=== PATIENT | male | born 1965 | race Caucasian/White ===

== ENCOUNTER 2016-08-20 10:35 | Emergency (ER) | payer OTHER ==
[2016-08-20 10:49] VITALS: BP 133/65
--- NOTE | 2016-08-20 12:33 | UC ---
Gualberto Mcclendon Aidan, scribed for Lia Sneed DO on 08/20/16 at 1139 . General HPI - HPI Summary HPI Summary: 50 y/o male presents to the Urgent Care with a complaint of acute, constant, ofgl-zo-emxhoidt (2/10 reported) tenderness, swelling, and redness in his left leg that began suddenly around noon yesterday. The pain was slightly alleviated by Ibuprofen. Just after onset, the patient began having cold chills. He later developed a fever of 102. Other associated symptoms include muscle aches and VILLA. The patient denies any coughing, sinus congestion, sore throat, ear ache, SOB, abdominal pain, joint pain, dysuria, or changes in urination. Previously, he had this exact sequence of symptoms to a more severe degree and was diagnosed with cellulitis. - History of Current Complaint Chief Complaint: UCGeneralIllness Stated Complaint: CHILLS, FEVER, AND FATIGUE Time Seen by Provider: 08/20/16 11:10 Hx Obtained From: Patient Onset/Duration: Sudden Onset, Lasting Hours, Still Present Timing: Constant Onset Severity: Moderate Current Severity: Mild Pain Intensity: 2 - left leg pain Pain Location at: left lower leg Pain Radiates to: pain does not radiate Character: painful, swelling, and redness Aggravating: unknown Alleviating: Ibuprofen slightly alleviated pain Associated Signs & Symptoms: Positive: Edema - LLE, Fever - of 102, Other - left lower leg pain, swelling, and redness, muscle aches, VILLA. Negative: Abdominal Pain, Back Pain, Cough, Dizziness, Diarrhea, Dysuria, Headache, Nausea , SOB, Vomiting, Wheezing Similar Episode/Dx as: Pt had the exact series of symtoms and was only diagnosed with cellulitis. - Allergy/Home Medications Allergies/Adverse Reactions: Allergies Allergy/AdvReac Type Severity Reaction Status Date / Time Penicillins Allergy See Comment Verified 08/20/16 10:42 PMH/Surg Hx/FS Hx/Imm Hx - Additional Past Medical History Additional PMH: james on bipap, morbid obesity, chronic venous stasis Endocrine History Of: Denies: Diabetes, Thyroid Disease Cardiovascular History Of: Denies: Cardiac Disorders, Hypertension Respiratory History Of: Denies: COPD, Asthma GI/ History Of: Denies: Ulcer - Surgical History Surgical History: Yes Surgery Procedure, Year, and Place: 1984 - Right shoulder surgery - torn bone cap - Family History Known Family History: Negative: Cardiac Disease, Hypertension, Diabetes - Social History Occupation: Employed Full-time Lives: With Family Alcohol Use: Rare Substance Use Type: None Smoking Status (MU): Never Smoked Tobacco Review of Systems Constitutional: Fever - of 102 Skin: Other - LLE erythema Eyes: Negative ENT: Negative Respiratory: Negative Cardiovascular: Negative Gastrointestinal: Negative Genitourinary: Negative Motor: Negative Neurovascular: Negative Musculoskeletal: Calf Tenderness, Edema - LLE edema, Myalgia - LLE pain, muscle aches Neurological: Headache Psychological: Negative All Other Systems Reviewed And Are Negative: Yes Physical Exam Triage Information Reviewed: Yes Appearance: Well-Appearing, No Pain Distress, Obese Vital Signs: Initial Vital Signs Temp 97.1 F 08/20/16 10:43 Pulse 109 08/20/16 10:43 Resp 18 08/20/16 10:43 BP 133/65 08/20/16 10:43 Pulse Ox 96 08/20/16 10:43 Vital Signs Reviewed: Yes Eyes: Positive: Conjunctiva Clear. Negative: Discharge ENT: Positive: Hearing grossly normal Neck exam: Normal Neck: Positive: Supple Respiratory: Positive: Lungs clear, Normal breath sounds, No respiratory distress, No accessory muscle use Cardiovascular: Positive: RRR, No Murmur Musculoskeletal Exam: Normal Musculoskeletal: Positive: Edema @ - left lower extremity, pos calf tenderness, neg valderrama's sign, Other: Neurological: Positive: Alert, Muscle Tone Normal Psychological Exam: Normal Psychological: Positive: Age Appropriate Behavior Skin Exam: Normal, Other - Diffuse redness of left lower extremity below the tibia tuberosity, asymmetrical tenderness and swelling of the left lower extremity, positive calf tenderness. Brauny edema/evidence of chronic venous stasis Course/Dx - Differential Dx - Multi-Symptom Differential Diagnoses: Other - cellulitis, chronic venous stasis, dvt Provider Diagnoses: lower extremity edema- r/o dvt, cellulitis Discharge - Discharge Plan Condition: Stable Disposition: [facility] Referrals: Will Summers MD [Primary Care Provider] - The documentation as recorded by the Gualberto saha Aidan accurately reflects the service I personally performed and the decisions made by , Lia Sneed DO.
== END 2016-08-20 12:11 | disposition short-term general hospital (02) ==
LOC: UCEAST 10:35
DX: R60.0 Localized edema (principal); E66.01 Morbid (severe) obesity due to excess calories; Z88.0 Allergy status to penicillin
CPT/HCPCS: 99212; G0463

== ENCOUNTER 2016-08-20 12:27 | Inpatient (IN) | payer OTHER ==
[2016-08-20] MEDS ORDERED: NS 0.9% 1000 ML* 1,000 ML IV ONE (14:41)
[2016-08-20] MEDS ORDERED: cefTRIAXone VIAL(*) 1,000 MG in NS 0.9% 50 ML* 50 ML IVPB ONE (14:42)
--- NOTE | 2016-08-20 14:50 | RAD ---
Indication: Left leg pain. Duplex Doppler sonography of the deep venous system of the left lower extremity deep venous system was performed. Bilaterally the common femoral veins appear patent and compressible. Left proximal greater saphenous vein, proximal deep femoral vein, femoral vein, popliteal vein, appear patent and compressible. Posterior tibial veins and peroneal veins are not visualized due to swelling. IMPRESSION: NO EVIDENCE OF DEEP VENOUS THROMBOSIS IS IDENTIFIED. LIMITED EVALUATION OF THE PERONEAL VEINS AND POSTERIOR TIBIAL VEINS DUE TO BODY HABITUS AND SWELLING.
--- NOTE | 2016-08-20 15:06 | ED ---
Lily Mcclendon Claudia, scribed for Wendi Darby MD on 08/20/16 at 1417 . Lower Extremity - HPI Summary HPI Summary: 50 year old male presents to the ED with left lower leg pain with erythema and edema. Pt notes sudden onset of Sx since yesterday. He denies any aggravating or alleviating factors. pt states simialr Sx to when he had a DVT in the same leg 4 years ago. Pt admits to chills and fever accompanying the pain. Pt denies any current fever or chills. - History of Current Complaint Chief Complaint: EDExtremityLower Stated Complaint: POSS BLOOD CLOT IN LT LEG Time Seen by Provider: 08/20/16 13:44 Hx Obtained From: Patient Onset of Pain: Days - sudden onset yesterday Pain Intensity: 3 Pain Scale Used: 0-10 Numeric Timing: Constant, Lasting Hours Location: Is Discrete @ - left lower leg Associated Signs And Symptoms: Positive: Swelling, Redness - Allergies/Home Medications Allergies/Adverse Reactions: Allergies Allergy/AdvReac Type Severity Reaction Status Date / Time Penicillins Allergy See Comment Verified 08/20/16 10:42 PMH/Surg Hx/FS Hx/Imm Hx Previously Healthy: Yes Endocrine/Hematology History: Denies: Hx Diabetes, Hx Thyroid Disease Cardiovascular History: Denies: Hx Hypertension Respiratory History: Denies: Hx Asthma, Hx Chronic Obstructive Pulmonary Disease (COPD) GI History: Denies: Hx Ulcer - Surgical History Surgery Procedure, Year, and Place: 1984 - Right shoulder surgery - torn bone cap Infectious Disease History: No Infectious Disease History: Denies: Hx Clostridium Difficile, Hx Hepatitis, Hx Human Immunodeficiency Virus (HIV), Hx of Known/Suspected MRSA, Hx Shingles, Hx Tuberculosis, Hx Known/ Suspected VRE, Hx Known/Suspected VRSA, History Other Infectious Disease, Traveled Outside the [place] in Last 30 Days - Family History Known Family History: Positive: Diabetes - Social History Occupation: Employed Full-time Lives: With Family Alcohol Use: Rare Substance Use Type: Reports: None Smoking Status (MU): Never Smoked Tobacco Review of Systems Eyes: Negative ENT: Negative Cardiovascular: Negative Respiratory: Negative Gastrointestinal: Negative Genitourinary: Negative Positive: Other - left lower leg pain with erythema and edema Skin: Negative Neurological: Negative Psychological: Normal All Other Systems Reviewed And Are Negative: Yes Physical Exam Triage Information Reviewed: Yes Vital Signs On Initial Exam: Initial Vitals Temp Pulse Resp BP Pulse Ox 97 F 108 20 131/67 96 08/20/16 12:30 08/20/16 12:30 08/20/16 12:30 08/20/16 12:30 08/20/16 12:30 Vital Signs Reviewed: Yes Appearance: Positive: Well-Appearing, No Pain Distress Skin: Positive: Warm, Skin Color Reflects Adequate Perfusion, Dry Eyes: Positive: EOMI, STEPHANIE ENT: Positive: Pharynx normal, TMs normal Neck: Positive: Supple, Nontender Respiratory/Lung Sounds: Positive: Clear to Auscultation, Breath Sounds Present. Negative: Rales, Rhonchi, Wheezes Cardiovascular: Positive: RRR. Negative: Murmur, Rub Abdomen Description: Positive: Nontender, Soft Bowel Sounds: Positive: Present Musculoskeletal: Positive: Strength/ROM Intact, Other - mild erythema up to his calf, distal pulse intact.. Negative: Edema Right Neurological: Positive: Sensory/Motor Intact, Alert, Oriented to Person Place, Time, CN Intact II-III Psychiatric: Positive: Affect/Mood Appropriate Diagnostics - Vital Signs Vital Signs Temp Pulse Resp BP Pulse Ox 08/20/16 12:30 97 F 108 20 131/67 96 - Laboratory Lab Statement: Any lab studies that have been ordered have been reviewed, and results considered in the medical decision making process. - Ultrasound No standard instances Ultrasound Interpretation: No Acute Changes - VENOUS DOPPLER STUDY: NO EVIDENCE OF DEEP VENOUS THROMBOSIS IS IDENTIFIED. LIMITED EVALUATION OF THE PERONEAL VEINS AND POSTERIOR TIBIAL VEINS DUE TO BODY HABITUS AND SWELLING. Ultrasound Interpretation Completed By: Radiologist Lower Extremity Course/Dx - Course Course Of Treatment: pt sent for doppler study with story consistent with previous cellulitis. giving ceftriaxone and kefelex close follow up - Diagnoses Provider Diagnoses: Cellulitis Discharge - Discharge Plan Condition: Stable Disposition: HOME Prescriptions: Cephalexin CAP* [Keflex CAP*] 500 mg PO QID #28 cap The documentation as recorded by the Lily saha Claudia accurately reflects the service I personally performed and the decisions made by me, Wendi Darby MD.
[2016-08-20] MEDS ORDERED: Ibuprofen TAB* 600 MG PO ONE (15:56)
[2016-08-20] MEDS ORDERED: NS 0.9% 1000 ML* 2,000 ML IV ONE (15:56)
[2016-08-20 16:27] LABS: Hematocrit 41 % (42-52); Hemoglobin 13.5 g/dl (14.0-18.0); Mean Corpuscular HGB Conc 33 g/dl (31-36); Mean Corpuscular Hemoglobin 27 pg (27-31); Mean Corpuscular Volume 83 fL (80-94); Mean Platelet Volume 8 um3 (7.4-10.4); Red Blood Count 4.95 10^6/ul (4.0-5.4); Red Cell Distribution Width 15 % (10.5-15); White Blood Count 17.9 10^3/ul (3.5-10.8)
[2016-08-20 16:42] LABS: Albumin 3.9 g/dL (3.2-5.2); BUN/Creatinine Ratio 16.9 (8-20); C Reactive Protein 188.5 mg/L (< 5.00); Calcium 9.4 mg/dL (8.6-10.3); EGFR African American 84.7 (>60); EGFR Non-African American 65.9 (>60); Globulin 3.6 g/dL (2-4); Potassium 3.4 mmol/L (3.5-5.0); Total Bilirubin 1.3 mg/dL (0.2-1.0); Total Protein 7.5 g/dL (6.4-8.9)
[2016-08-20] MEDS ORDERED: ceFAZolin 1 GM in Dextrose (*) 1 GM/50 ML BAG IVPB ONE (17:12)
[2016-08-20] MEDS ORDERED: Potassium Chlor TAB* 20 MEQ TAB.ER PO ONE (18:30)
[2016-08-20] MEDS: Heparin VIAL(*) 5000 UNITS/ML VIAL (FIVE THOUSAND) SUBCUT SCH (20:28)
[2016-08-20] MEDS: NS 0.9% 1000 ML* 1,000 ML IV SCH (20:28)
[2016-08-20] MEDS: Ibuprofen TAB* 600 MG PO PRN (21:08)
--- NOTE | 2016-08-20 21:48 | HP ---
HISTORY AND PHYSICAL:* ADDENDUM: Mr. Allen is a 50-year-old morbidly obese male with history of bilateral leg edema who presents with leg cellulitis. The patient met sepsis criteria at admission and his fever was up to 104 degrees prior to admission. The patient is going to be admitted to the hospital, treated with intravenously. For further details of patient's presentation and plan, please see history and physical dictated by Roberta Beyer on 08/20/16 with which I agree. [id number]/CPS #: [id number] MTDD
--- NOTE | 2016-08-20 22:54 | ED ---
Malik Mcclendon Soohyun, scribed for Oswaldo King MD on 08/20/16 at 1718 . Progress - Progress Note Progress Note: This 50 y/o male has been signed out to Dr. King at shift change. Pt is diagnosed with leg cellulitis and possible early stage of sepsis. Pt will be admitted due to pt not having any viable follow up. Plan of care and physical exam findings are shared with Dr. Gaston, who accepts the pt's admission. Re-Evaluation - Re-Evaluation First Eval Re-Evaluation Time: 15:57 Change: Unchanged Comment: MD in room to re-evaluate the pt. Course/Dx - Diagnoses Provider Diagnoses: Cellulitis, leg - Provider Notifications Discussed Care Of Patient With: Dr. Gaston (Hospitalist) at 1714 PM. Time Discussed With Above Provider: 17:14 Instructed by Provider To: Admit As Inpatient The documentation as recorded by the gmibMalik hernandez Soohyun accurately reflects the service I personally performed and the decisions made by , Oswaldo King MD.
--- NOTE | 2016-08-20 22:55 | HP ---
ATTENDING ADDENDUM NOW INCLUDED ON THIS REPORT HISTORY AND PHYSICAL: DATE OF ADMISSION: 08/20/16 PRIMARY CARE PROVIDER: Will Summers MD ATTENDING PHYSICIAN: Dolly Salas MD * (report dictated by Marisol Kim NP) CHIEF COMPLAINT: Left leg pain, swelling, and redness. HISTORY OF PRESENT ILLNESS: Mr. Allen is a 50-year-old male with past medical history significant for morbid obesity, liver disease, and sleep apnea who presents to the emergency room with complaints of sudden onset of left leg pain with swelling and redness with sudden onset 1 day ago. The patient states that this is similar to when he had a previous cellulitis approximately 4 years ago. The patient reports fever, chills. He denies chest pain, shortness of breath, nausea, vomiting. The patient decided to present to the emergency room for further evaluation of his symptoms. While in the emergency room, the patient received 3 L of saline, was given cefazolin and ceftriaxone. The patient had a venous Doppler study that was negative for deep vein thrombosis. The patient had labs that were significant for a lactic acid of 2.3, white blood cell count of 17.9. The patient has a history of liver disease and has elevated bilirubin of 130. The patient had a temperature of 104 in the emergency room. Based off of concern of the patient' s presentation, the Hospitalists were asked to evaluate him for admission. PAST MEDICAL HISTORY: 1. Morbid obesity. 2. Liver disease. 3. Obstructive sleep apnea, uses BiPAP. 4. Lymphadenopathy. 5. Lymphedema. PAST SURGICAL HISTORY: Status post shoulder surgery. HOME MEDICATIONS: The patient denies any home medications. ALLERGIES: PENICILLIN. FAMILY HISTORY: The patient denies any family history of coronary artery disease. The patient reports a paternal grandfather with history of diabetes mellitus. The patient reports his mother had cancerous tumor attached to her liver that was not liver cancer. SOCIAL HISTORY: The patient denies tobacco or recreational drug use. He rarely drinks alcohol. 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 He is and his , Kaylee Allen, will be his surrogate decision maker in the event he is unable to make decisions for himself. REVIEW OF SYSTEMS: I performed a 14-point review of systems. All the pertinent positives and negatives are mentioned in the history of present illness. The remaining review of systems is negative. PHYSICAL EXAMINATION GENERAL APPEARANCE: The patient is alert, pleasant, appears to be in no acute distress. VITAL SIGNS: Temperature 101.4, heart rate 99, respiratory rate 22, O2 sat 97% on room air, blood pressure 144/78. HEENT: Normocephalic, atraumatic. Pupils are equal and reactive to light. Extraocular movements are intact. NECK: Supple. There is no lymphadenopathy noted. RESPIRATORY: There is no accessory muscle use and the lungs are clear, diminished to auscultation, bilateral. CARDIOVASCULAR: Regular rate and rhythm. S1 and S2 present. There are no murmurs, rubs, or gallops heard. ABDOMEN: Soft, large, and nontender. There are bowel sounds present x4. EXTREMITIES: There is trace to +1 bilateral lower extremity edema. DP and PT pulses are 2+ and symmetric. MUSCULOSKELETAL: There is no clubbing or cyanosis noted. The patient exhibits good strength in all extremities. NEUROLOGICAL: The patient is alert and oriented x3. Cranial nerves II through XII are grossly intact. PSYCHOLOGICAL: The patient is calm and cooperative. SKIN: The patient has erythema and warmth to his right lower extremity from his ankle to just below his knee. DIAGNOSTIC STUDIES/LABORATORY DATA: Sodium 135, potassium 3.4, chloride 103, CO2 26, BUN 20, creatinine 1.18, glucose 102. White blood cell count 17.9, hemoglobin 13.5, hematocrit 41, and platelet count 166. Lactic acid 2.3, C- reactive protein 188.50, total bilirubin 1.30. Left venous Doppler ultrasound from today. Radiologist's impression: No evidence of deep vein thrombosis was identified. Limited evaluation of the peroneal veins and posterior tibial veins due to body habitus and swelling. IMPRESSION: Mr. Allen is a 50-year-old male with past medical history significant for morbid obesity, liver disease, lymphedema, and obstructive sleep apnea who presents to the emergency room with concern for left lower extremity pain with erythema and edema. He will be admitted as inpatient for cellulitis and sepsis. ASSESSMENT: 1. Cellulitis with sepsis. The patient has cellulitis of his left lower extremity. Venous ultrasound showed no deep venous thrombosis. On admission, the patient is meeting sepsis criteria with systemic inflammatory response syndrome criteria with a temperature, tachycardia, tachypnea, and leukocytosis. The patient's qSOFA score is 1 at the time of admission. The patient will receive IV fluids. We will repeat a lactic acid and blood cultures have been obtained. The patient will be continued on cefazolin. 2. Obstructive sleep apnea. The patient will use his home BiPAP. His settings are IPAP 16 and EPAP 12. 3. Liver disease. We will avoid acetaminophen use. The patient can have Motrin for fever and pain. The patient's bilirubin looks slightly more elevated than his baseline labs in the computer. 4. Fluids, electrolytes, and nutrition. Regular diet. 5. Code status. Full code. 6. DVT prophylaxis. The patient is at moderate risk and will have subcu heparin. 7. Disposition. Inpatient. TIME SPENT: Time for this admission was 60 minutes, 35 minutes were spent with [id number] with the patient discussing medications, past medical history, and events leading to his arrival today and performing physical examination. The case has been reviewed with the attending, Dr. Salas, who agrees with the plan of care. Reviewed by MARISOL KIM, ASSURANCE AUDITOR-C 08/23/16 1933 ADDENDUM: Patient met sepsis criteria at admission and his fever was up to 104 degrees prior to admission. The patient is going to be admitted to the hospital, treated with intravenously. For further details of patient's presentation and plan, please see history and physical dictated by Marisol Beyer on 08/20/16 with which I [place] [id number]/CPS #: [id number]/CPS #: [id number] PAM
[2016-08-21] MEDS: ceFAZolin 1 GM in Dextrose (*) 1 GM/50 ML BAG IVPB SCH ×3 (02:03→18:08)
[2016-08-21] MEDS: NS 0.9% 1000 ML* 1,000 ML IV SCH ×2 (05:03→13:33)
[2016-08-21] MEDS: Heparin VIAL(*) 5000 UNITS/ML VIAL (FIVE THOUSAND) SUBCUT SCH ×3 (05:43→23:08)
[2016-08-21 06:12] LABS: BUN/Creatinine Ratio 17.2 (8-20); Calcium 8.6 mg/dL (8.6-10.3); EGFR African American 111.5 (>60); EGFR Non-African American 86.7 (>60); Potassium 3.6 mmol/L (3.5-5.0)
[2016-08-21 06:20] LABS: Hematocrit 37 % (42-52); Mean Corpuscular HGB Conc 33 g/dl (31-36); Mean Corpuscular Hemoglobin 27 pg (27-31); Mean Corpuscular Volume 83 fL (80-94); Mean Platelet Volume 8 um3 (7.4-10.4); Red Blood Count 4.39 10^6/ul (4.0-5.4); Red Cell Distribution Width 15 % (10.5-15); White Blood Count 11.3 10^3/ul (3.5-10.8)
[2016-08-21] MEDS ORDERED: Influenza VAC *QUAD* 2016-17* 0.5 ML SYRINGE IM ONE (09:00)
--- NOTE | 2016-08-21 15:34 | PN ---
Subjective Date of Service: 08/21/16 Interval History: patient reports he feels better since admission but not a 100% he continues to report significant LE erythema and some noted edema. Denies fever or chills. Reports no appetite. No N/V/D. Denies LE pain. Objective Active Medications: Heparin Sodium (Porcine) (Heparin Vial(*)) 5,000 units SUBCUT Q8HR [facility] Last Admin: 08/21/16 14:46 Dose: 5,000 units Cefazolin Sodium/Dextrose (Kefzol 1 Gm In Dextrose Duplex (*)) 1 gm in 50 mls @ 200 mls/hr IVPB Q8H [facility] Last Admin: 08/21/16 10:56 Dose: 200 mls/hr Sodium Chloride (Ns 0.9% 1000 Ml*) 1,000 mls @ 125 mls/hr IV PER RATE [facility] Last Admin: 08/21/16 13:33 Dose: 125 mls/hr Ibuprofen (Motrin Tab*) 600 mg PO Q6H PRN PRN Reason: FEVER/PAIN Last Admin: 08/20/16 21:08 Dose: 600 mg Vital Signs 08/20/16 08/20/16 08/20/16 19:58 22:48 23:47 Temperature 99.4 F 98.4 F Pulse Rate 113 94 Respiratory 18 16 20 Rate Blood Pressure 141/69 132/61 (mmHg) O2 Sat by Pulse 98 97 Oximetry 08/21/16 08/21/16 08/21/16 04:00 07:48 08:00 Temperature 98.8 F 97.9 F Pulse Rate 90 106 Respiratory 18 18 Rate Blood Pressure 138/60 120/54 (mmHg) O2 Sat by Pulse 100 98 Oximetry 08/21/16 11:07 Temperature 100.7 F Pulse Rate 115 Respiratory 18 Rate Blood Pressure 144/69 (mmHg) O2 Sat by Pulse 99 Oximetry Oxygen Devices in Use Now: None Appearance: morbidly obese male laying in bed resting A+O x3 in NAD Eyes: No Scleral Icterus, PERRLA Ears/Nose/Mouth/Throat: NL Teeth, Lips, Gums, Mucous Membranes Moist Neck: NL Appearance and Movements; NL JVP Respiratory: Symmetrical Chest Expansion and Respiratory Effort, Clear to Auscultation Cardiovascular: NL Sounds; No Murmurs; No JVD, RRR Abdominal: NL Sounds; No Tenderness; No Distention, - - obese Extremities: No Clubbing, Cyanosis Skin: - - LLE below knee to abvove ankle is noted generalized erythema and edema. No tenderness. Warm to touch. No open wounds. Neurological: Alert and Oriented x 3, NL Sensation, NL Muscle Strength and Tone Lines/Tubes/Other Access: Clean, Dry and Intact Peripheral IV Nutrition: Taking PO's - PO intake Result Diagrams: 08/21/16 05:36 08/21/16 05:36 Assess/Plan/Problems-Billing Assessment: Mr. Allen is a 50 yo male with a PMH of Morbid Obesity, liver disease, sleep apnea who presented to the emergency department 08/20 with c/o left leg swelling and redness found to have cellulitis - Patient Problems (1) Sepsis Comment: resolved (2) Cellulitis Comment: - left lower extremity - Doppler showing no DVT - continue IV abx with cefazolin, may be able to switch to PO tomorrow. (3) BMI 45.0-49.9, adult (4) Sleep apnea Comment: - continue cpap (5) DVT prophylaxis Comment: HSQ Status and Disposition: Inpatient with sepsis secondary to Cellulitis requiring IV antibiotics. Home when medically stable.
[2016-08-21] MEDS: Ibuprofen TAB* 600 MG PO PRN (23:08)
[2016-08-22] MEDS: ceFAZolin 1 GM in Dextrose (*) 1 GM/50 ML BAG IVPB SCH ×2 (01:48→10:05)
[2016-08-22] MEDS: Heparin VIAL(*) 5000 UNITS/ML VIAL (FIVE THOUSAND) SUBCUT SCH ×2 (05:58→14:40)
[2016-08-22 06:55] LABS: Hematocrit 34 % (42-52); Hemoglobin 11.4 g/dl (14.0-18.0); Mean Corpuscular HGB Conc 33 g/dl (31-36); Mean Corpuscular Hemoglobin 27 pg (27-31); Mean Corpuscular Volume 82 fL (80-94); Mean Platelet Volume 8 um3 (7.4-10.4); Red Blood Count 4.17 10^6/ul (4.0-5.4); Red Cell Distribution Width 14 % (10.5-15)
[2016-08-22 07:07] LABS: BUN/Creatinine Ratio 12.6 (8-20); Calcium 8.5 mg/dL (8.6-10.3); EGFR African American 108.8 (>60); EGFR Non-African American 84.6 (>60); Potassium 3.5 mmol/L (3.5-5.0)
[2016-08-22 10:41] VITALS: BP 119/66
--- NOTE | 2016-08-23 14:55 | DS ---
DISCHARGE SUMMARY: DATE OF ADMISSION: 08/20/16 DATE OF DISCHARGE: 08/22/16 PRIMARY CARE PROVIDER: Dr. Will Summers. DISCHARGE DIAGNOSES: 1. Severe sepsis. 2. Left lower extremity cellulitis. 3. Acute kidney injury. 4. Mild lactic acidosis. 5. Leukocytosis. 6. Mild thrombocytopenia secondary to sepsis. SECONDARY DIAGNOSES: 1. Morbid obesity with a BMI of 49. 2. 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 3. Obstructive sleep apnea, on BiPAP. 4. Chronic lymphedema. 5. Status post shoulder surgery. MEDICATION LIST: 1. Ibuprofen 600 mg p.o. q.8 hours p.r.n. pain or fever. 2. Cephalexin 500 mg p.o. four times a day for 10 more days. HOSPITAL COURSE: Mr. Allen is a 50-year-old male with a past medical history as stated above that presented to the emergency room with complaints of left leg pain, swelling, and redness that had started suddenly one day prior to admission. He did have a prior episode of cellulitis 4 years ago, so he was familiar with symptoms and presented to the emergency room. For more details about his presentation, I refer you to his history and physical. Lower extremity Doppler was performed and it showed no evidence of deep venous thrombosis. Limited evaluation of the peroneal and posterior tibial veins due to body habitus and swelling. His CBC showed WBC of 17.9 with a creatinine of 1.18 and lactic acid of 2.3. He was admitted under impression of severe sepsis secondary to lower extremity cellulitis and he was started on IV hydration and cefazolin. The patient has significant improvement of the erythema of his lower extremity. He had improvement of his fever and he was feeling much improved today and anxious for discharge. He felt that he would be able to rest properly at home and he has been able to tolerate oral meds with no problem. The patient had resolution of his renal failure with resolution of his leukocytosis and has had stable vital signs. He was thought to be stable for discharge. The patient was advised to follow up with Dr. Will Summers as he has not seen his PCP for a couple of years and has an appointment scheduled for August 25 at 3:30 p.m. I believe the patient would also benefit of evaluation by Dr. Pan as outpatient for possible chronic antibiotic suppression, as I foresee worsening of his lymphedema and probably recurrent infections. He would also probably benefit of referral to [facility] to assist with weight loss. PHYSICAL EXAMINATION: Vital Signs: Temperature 97.8, heart rate is 76, respiratory rate is 16, oxygen saturation is 100% on room air, blood pressure is 119/66. General: The patient is a pleasant, morbidly obese male, sitting up in bed, in no acute distress. HEENT: Pupils are equal. Moist mucous membranes. CVS: Normal S1, S2. Regular rate and rhythm. Chest: Breath sounds present bilaterally with no added sounds, decreased in bases. Abdomen is obese, soft. Bowel sounds are present. Extremities: The patient has bilateral lower extremity lymphedema with chronic skin changes on the right, mild erythema on the left that is receding considerably from demarcation lines made in the emergency room. He still has moderate edema, but states that this has improved from admission. DIET: Regular diet. ACTIVITIES: As tolerated. The patient was advised to stay off work until he sees Dr. Summers and to keep his leg elevated. DISPOSITION: To home. STATUS IN THE HOSPITAL: Inpatient. Please keep in mind this is a summarized version of this patient's hospital stay. If you need more information, please feel free to call me at [phone] or please obtain the full medical records. TIME SPENT: Approximately 45 minutes was spent to complete this discharge. CC: Dr. Will Summers* [id number]/CPS #: [id number] PAM
== END 2016-08-22 15:10 | disposition home or self-care (01) | DRG 872 ==
LOC: ED 12:27 → MED 18:10
PROVIDERS: ADMIT Internal Medicine; ATTEND Internal Medicine
DX: A41.9 Sepsis, unspecified organism (principal); N17.9 Acute kidney failure, unspecified; E87.2 Acidosis; D69.59 Other secondary thrombocytopenia; Z68.42 Body mass index [BMI] 45.0-49.9, adult; E66.01 Morbid (severe) obesity due to excess calories; L03.116 Cellulitis of left lower limb; R65.20 Severe sepsis without septic shock; K75.81 Nonalcoholic steatohepatitis (NASH); G47.33 Obstructive sleep apnea (adult) (pediatric); I89.0 Lymphedema, not elsewhere classified; Z88.0 Allergy status to penicillin; Z82.49 Family history of ischemic heart disease and other diseases of the circulatory system; Z83.3 Family history of diabetes mellitus; Z80.8 Family history of malignant neoplasm of other organs or systems
CPT/HCPCS: 36415; 80048; 80053; 83605; 85025; 86140; 87040; 90686; 99212; A9270-GY; G0463; J0690; J0696; J1644

== ENCOUNTER 2017-07-17 10:12 | Emergency (ER) | payer OTHER ==
--- OUTSIDE RECORDS SUMMARY | 2017-07-17 11:24 | XMS REPORT ---
:1965 External Reference #:[id number] Author Organization [employer] Address [address] [address] Phone [phone] Care Team Providers Name Role Phone Will Summers MD Care Team Information Senior Advisory Unavailable Will Summers MD Primary Care Physician Unavailable Payers Type Date Identification Numbers Payment Provider Subscriber Commercial Effective: Policy Number: [employer]CP[employer] Kaylee Lindquist 2011 [id number] Group Number: [id number] [address] PayID: [id number] [place] [address] Medigap Part B Expires: 2011 Policy Number: [employer] Insurance Kaylee Lindquist [id number] Group Number: [id number] [address] PayID: [id number] [place] [address] Problems Date Description Provider Status Onset: 08/25/2016 Nonalcoholic steatohepatitis Rudolph Marshall M.D.,FACP Onset: 11/14/2007 Morbid obesity Rudolph Marshall M.D.,FACP Onset: 11/14/2007 Allergic rhinitis Rudolph Marshall M.D.,FACP Onset: 11/14/2007 Benign essential hypertension Rudolph Marshall M.D.,FACP Onset: 03/17/2008 Chronic nonalcoholic liver Will Summers Active disease Dave,FACP Onset: 04/10/2012 Obstructive sleep apnea syndrome Dorian Nickerson M.D. Active Onset: 04/10/2012 Disorder of nasal cavity Dorian Nickerson M.D. Active Onset: 12/07/2014 Swelling of limb Fnu MD Cedric Active Onset: 10/01/2014 Sprain of knee and leg Alysonu MD Cedric Inactive Inactive: 08/25/2016 Onset: 10/01/2014 Obesity Oscar Steele MD Inactive Inactive: 08/25/2016 Onset: 11/14/2007 Inflammatory disease of liver Will Summers M.D.,FACP Inactive Inactive: 08/25/2016 Onset: 11/15/2010 Chronic liver disease Will Summers M.D.,FACP Inactive Inactive: 08/25/2016 Onset: 10/17/2012 Epidermoid cyst Dorian Nickerson M.D. Inactive Inactive: 08/25/2016 Family History Date Family Member(s) Problem(s) Comments General Diabetes General Cancer Father 68 as of 11/15/2010 Father No Current Problems Mother Cancer abdominal, not colon/stomach Siblings 1 First Sister Deviated Septum Maternal Grandmother Diabetes, Non Insulin Dependent Social History Type Date Description Comments Marital Status Lives With Spouse Occupation Currently Working at [employer] Cigarette Use Never Smoked Cigarettes Cigars 08/25/2016 Never Smoked Cigars Pipe Never Smoked A Pipe Smokeless Tobacco Never Used Smokeless Tobacco ETOH Use Drinks Alcoholic Beverages Rarely Recreational Drug Use Denies Drug Use Smoking Patient has never smoked Exercise Type/Frequency Does not exercise General Hx Text 2 children Allergies, Adverse Reactions, Alerts Date Description Reaction Status Severity Comments 11/13/2007 Penicillin active per parents Medications Medication Date Status Form Strength Qnty SIG Indications Ordering Provider Ibuprofen 08/22/ Active Tablets 600mg 30tab 1 by mouth Q Other 2017 s 8 hrs as Ordering needed Provider Compression 12/07/ Active Use Fnu Stockings 2014 bilaterally Seemant, 15-20 Size as needed. Bi-Pap 06/20/ Active 1unit ipap 16/ Dorian 2012 s epap 12 Glendy with ab hughes M.D. supplies Clindamycin 08/29/ Hx Capsules 300mg 30cap 1 tabs by L03.116 Fernando HCL 2017 - s mouth 3 D. 06/25/ times a day; Flash 2017 take for M.D. return of chills, fevers, leg swelling, redness Cephalexin 08/22/ Hx Capsules 500mg 40cap 1 by mouth 4 Other 2017 - s times a day Ordering 02/10/ x 10 days Provider 2017 Cephalexin 09/20/ Hx Capsules 500mg 28cap qid po 682.7 Will 2011 - s Yancy Summers, 11/15/ MHarleyDHarley,FACP 2010 Ibuprofen 09/20/ Hx Tablets 600mg 60tab tid prn 682.7 Will 2010 - s Yancy Summers, MHarleyDHarley,FACP 2014 Nasonex 11/13/ Hx Suspension 50mcg/Act 1Mon 2 spray kary 477.9 Will 2007 - each side qd Yancy Summers, MHarleyDHarley,FACP 2013 Claritin / Hx Tablets 10mg 30tab PO qd prn Unknown 0000 - s 2013 Flonase / Hx Suspension 1Bott 1 Intranasal Unknown 0000 - le puff To Each 03/17/ Nostril 2008 Daily Immunizations CPT Code Status Date Vaccine Lot # [id number] Refused 06/11/2009 Influenza Virus Vaccine, Pandemic Formulation Vital Signs Date Vital Result Comment 06/26/2017 Height 73 inches 6'1" Weight 352.00 lb Heart Rate 91 /min BP Systolic Sitting 140 mmHg BP Diastolic Sitting 100 mmHg Body Temperature 98.1 F O2 % BldC Oximetry 98 % BMI (Body Mass Index) 46.4 kg/m2 08/29/2016 Height 73 inches 6'1" Weight 379.00 lb Heart Rate 84 /min BP Systolic Sitting 154 mmHg BP Diastolic Sitting 80 mmHg Respiratory Rate 14 /min Body Temperature 98.3 F BMI (Body Mass Index) 50.0 kg/m2 08/25/2016 Height 73 inches 6'1" Weight 379.12 lb Heart Rate 106 /min BP Systolic Sitting 143 mmHg BP Diastolic Sitting 87 mmHg BP Systolic Recheck 138 mmHg BP Diastolic Recheck 85 mmHg Body Temperature 101.0 F 8 O2 % BldC Oximetry 95 % BMI (Body Mass Index) 50.0 kg/m2 11/19/2014 Height 73 inches 6'1" Weight 365.00 lb Heart Rate 82 /min BP Systolic Sitting 142 mmHg BP Diastolic Sitting 90 mmHg BMI (Body Mass Index) 48.2 kg/m2 10/01/2014 Weight 370.00 lb Heart Rate 80 /min BP Systolic Sitting 124 mmHg BP Diastolic Sitting 78 mmHg 12/23/2013 Weight 360.00 lb Heart Rate 88 /min BP Systolic Sitting 132 mmHg BP Diastolic Sitting 88 mmHg 11/25/2013 Height 74 inches 6'2" Weight 360.00 lb BP Systolic 140 mmHg BP Diastolic 92 mmHg BMI (Body Mass Index) 46.2 kg/m2 05/15/2013 Weight 370.00 lb pts weight at home 09/26/2012 Weight 378.00 lb pt weighed himself at home this am 04/10/2012 Weight 350.00 lb Heart Rate 90 /min BP Systolic Sitting 130 mmHg BP Diastolic Sitting 92 mmHg 11/15/2010 Heart Rate 80 /min BP Systolic 138 mmHg BP Diastolic 82 mmHg 09/20/2010 Height 74 inches 6'2" Weight 385.00 lb Heart Rate 90 /min BP Systolic Sitting 140 mmHg BP Diastolic Sitting 94 mmHg Body Temperature 97.3 F Tympanically BMI (Body Mass Index) 49.4 kg/m2 03/17/2008 Height 74 inches 6'2" Heart Rate 78 /min BP Systolic Sitting 168 mmHg BP Diastolic Sitting 98 mmHg 11/14/2007 Height 74 inches 6'2" Weight 346.00 lb Heart Rate 78 /min BP Systolic Sitting 150 mmHg BP Diastolic Sitting 92 mmHg BMI (Body Mass Index) 44.4 kg/m2 Results Test Date Test Result H/L Range Note CBC Auto Diff 08/20/2016 White Blood Count 17.9 10^3/uL High 3.5-10.8 Red Blood Count 4.95 10^6/uL 4.0-5.4 Hemoglobin 13.5 g/dL Low 14.0-18.0 Hematocrit 41 % Low 42-52 Mean Corpuscular Volume 83 fL 80-94 Mean Corpuscular Hemoglobin 27 pg 27-31 Mean Corpuscular HGB Conc 33 g/dL 31-36 Red Cell Distribution Width 15 % 10.5-15 Platelet Count 166 10^3/uL 150-450 Mean Platelet Volume 8 um3 7.4-10.4 Abs Neutrophils 16.2 10^3/uL High 1.5-7.7 Abs Lymphocytes 1.2 10^3/uL 1.0-4.8 Abs Monocytes 0.5 10^3/uL 0-0.8 Abs Eosinophils 0 10^3/uL 0-0.6 Abs Basophils 0.1 10^3/uL 0-0.2 Abs Nucleated RBC 0 10^3/uL Granulocyte % 90.5 % High 38-83 Lymphocyte % 6.5 % Low 25-47 Monocyte % 2.7 % 1-9 Eosinophil % 0 % 0-6 Basophil % 0.3 % 0-2 Nucleated Red Blood Cells % 0 Comp Metabolic Panel 08/20/2016 Sodium 135 mmol/L 133-145 Potassium 3.4 mmol/L Low 3.5-5.0 Chloride 103 mmol/L 101-111 Co2 Carbon Dioxide 26 mmol/L 22-32 Anion Gap 6 mmol/L 2-11 Glucose 102 mg/dL High 70-100 Blood Urea Nitrogen 20 mg/dL 6-24 Creatinine 1.18 mg/dL High 0.67-1.17 BUN/Creatinine Ratio 16.9 8-20 Calcium 9.4 mg/dL 8.6-10.3 Total Protein 7.5 g/dL 6.4-8.9 Albumin 3.9 g/dL 3.2-5.2 Globulin 3.6 g/dL 2-4 Albumin/Globulin Ratio 1.1 1-3 Total Bilirubin 1.30 mg/dL High 0.2-1.0 Alkaline Phosphatase 36 U/L 34-104 Alt 38 U/L 7-52 Ast 27 U/L 13-39 Egfr Non- 65.9 >60 Egfr 84.7 >60 1 Laboratory test finding 08/20/2016 C Reactive Protein 188.50 mg/L High &lt ; 5.00 2 Laboratory test finding 08/20/2016 Lactic Acid 2.3 mmol/L High 0.5-2.0 3 Blood Culture SEE RESULT BELOW 4 Laboratory test finding 05/20/2015 Rapid Influenza A B SEE RESULT BELOW 5 Antigen Throat-Beta Strept SEE RESULT BELOW 6 Xray 10/01/2014 Knee Complete LT <pending> Liver Function Panel 11/15/2010 Total Protein 6.8 GM/DL 6.2-8.1 Albumin 3.7 GM/DL 3.6-5.4 Globulin 3.1 GM/DL 2-4 Albumin/Globulin Ratio 1.2 1-3 Bilirubin Total 0.9 mg/dL 0.4-1.5 7 Bilirubin Direct 0.1 mg/dL 0.1-0.5 Indirect Bilirubin 0.8 mg/dL 0.3-1.0 8 Alkaline Phosphatase 43 U/L 39-117 Alt (SGPT) 45 U/L 17-63 Ast (Sgot) 33 U/L 12-42 Laboratory test finding 11/15/2010 TSH 2.56 MIU/ML 0.34-5.60 Lipid Profile (Trig/Chol/HDL) 11/14/2010 Triglyceride 153 mg/dL 40-200 Cholesterol 164 mg/dL Less Than 200 9 High Density Lipoprotein 38 mg/dL Low 40-60 10 Cholesterol/HDL Ratio 4.32 AVERAGE 1-4.97 Low Density Lipoprotein 95 mg/dL Less Than 100 11 Laboratory test finding 11/14/2010 Glucose 97 mg/dL 70-100 CBC With Electronic Diff 09/20/2010 White Blood Count 6.9 CUMM 4.8-10.8 Red Cell Count 4.32 CUMM Low 4.6-6.2 Hemoglobin 12.6 g/dL Low 14.0-18.0 Hematocrit 37 % Low 42-52 Mean Corpuscular Volume 84 um3 80-94 Mean Corpuscular Hemoglob 29 pg 27-31 Mean Corpuscular HGB Cone 35 g/dL 32-36 Redcell Distribution WDTH 14 % 10.5-15 Platelet Count 316 CUMM 150-450 Mean Platelet Volume 7.8 um3 7.4-10.4 Gran % 54.2 % 38-83 Lymph % 35.3 % 25-47 Mononuclear % 6.2 % 1-9 Eosinophil % 3.7 % 0-6 Basophil % 0.6 % 0-2 Abs Lymphs 2.4 1.0-4.8 Abs Mononuclear 0.4 0-0.8 Absolute Neutrophil Count 3.7 1.5-7.7 Abs Eosinophils 0.3 0-0.6 Abs Basophils 0 0-0.2 Laboratory test finding 09/20/2010 C Reactive Protein 2.3 mg/dL High Less Than 0.5 D Dimer Quantitative 472 NG/ML High Less Than 230 12 Urine Culture & 09/12/2010 Urine Culture Sensitivi NG 13 Sensitivi Laboratory test finding 03/02/2008 Ferritin 192 NG/ML 24-336 TSH 1.68 MIU/ML 0.34-5.60 Iron & Iron Binding Capacity 03/02/2008 Iron Total 94 g/dL 45-182 Unsaturated Iron Binding 255 g/dL Total Iron Binding Capacity 349 g/dL 250-450 % Iron Saturation 27 % 15-55 Laboratory test finding 03/02/2008 GGTP 27 U/L 7-50 Liver Function Panel 03/02/2008 Total Protein 7.2 GM/DL 6.2-8.1 Albumin 3.8 GM/DL 3.6-5.4 Globulin 3.4 GM/DL 2-4 Albumin/Globulin Ratio 1.1 1-3 Bilirubin Total 0.8 mg/dL 0.4-1.5 Bilirubin Direct 0.2 mg/dL 0.1-0.5 Indirect Bilirubin 0.6 mg/dL 0.1-0.75 Alkaline Phosphatase 58 U/L 39-117 Alt (SGPT) 77 U/L High 17-63 Ast (Sgot) 50 U/L High 12-42 Basic Metabolic Panel 09/05/2007 One Over Creatinine 1.00 14 Anion Gap 5.0 mmol/L 2-11 14, 15 BUN 14 mg/dL 6-24 14 Calcium 9.2 mg/dL 8.7-10.2 14 Chloride 104 mmol/L 101-111 14 Co2 (Carbon Dioxide) 30.0 mmol/L 22-32 14 Glucose 90 mg/dL 70-105 14 Potassium 4.1 mmol/L 3.5-5.0 14 Sodium 139 mmol/L 135-145 14 BUN/Creatinine Ratio 14.0 8-20 14 Creatinine 1.0 mg/dL 0.5-1.4 14 Lipid Profile 09/05/2007 Cholesterol/HDL Ratio 4.38 AVERAGE 1-4.97 14 (Trig/Chol/HDL) Cholesterol 171 mg/dL Less Than 200 14, 16 Triglyceride 158 mg/dL 40-200 14 High Density Lipoprotein 39 mg/dL Low 40-60 14, 17 Low Density Lipoprotein 100 mg/dL Less Than 100 14, 18 Laboratory test finding 09/05/2007 PSA Screening 1.45 NG/ML 0-4 14, 19 1 Because ethnic data is not always readily available, this report includes an eGFR for both -Americans and non- Americans. The National Kidney Disease Education Program (NKDEP) does not endorse the use of the MDRD equation for patients that are not between the ages of 18 and 70, are , have extremes of body size, muscle mass, or nutritional status, or are non- or non-. According to the National Kidney Foundation, irrespective of diagnosis, the stage of the disease is based on the level of kidney function: Stage Description GFR(mL/min/1.73 m(2)) 1 Kidney damage with normal or decreased GFR 90 2 Kidney damage with mild decrease in GFR 60-89 3 Moderate decrease in GFR 30-59 4 Severe decrease in GFR 15-29 5 Kidney failure <15 (or dialysis) 2 Acute inflammation: >10.00 3 Critical Result LACT:2.3 Called to [id number] at: 16:44:21 by:[id number] Read back by:[id number] [place] Severe Sepsis and Septic Shock Management Bundle Measure requires all lactic acids initially measuring >2.0 mmol/L be repeated. 4 SEE RESULT BELOW Name: RACHID LINDQUIST : [address]: Destini Kat MD Acct: [id number] Unit: [id number] AGE: 50 Location: [facility] 411-02 Re08/20/16 Dis: 08/22/16 SEX: M Status: DIS IN SPEC: [id number] TARIQ: 08/20/16-[address] [facility] [address]: Oswaldo King MD REQ: [id number] RECD: 08/20/16 STATUS: FELIX GOODSON DR: Will Summers MD _ SOURCE: BLOOD,VENO SPDESC: ORDERED: Blood Cult Procedure Result Reported Site Aerobic Culture Bottle Final 08/25/16- 1622 ML No Growth Day 5 Anaerobic Culture Bottle Final 08/25/16- 1622 ML No Growth Day 5 * ML - MAIN LAB ([facility]) . END OF REPORT * ML=Testing performed at Main Lab DEPARTMENT OF PATHOLOGY, [address] [place] [address] Malik Bingham M.D. Director [facility] # [id number] 5 SEE RESULT BELOW Name: RACHID LINDQUIST : [address]: Reba Jacobs MD Acct: [id number] Unit: [id number] AGE: 49 Location: [facility] Re05/20/15 SEX: M Status: DEP ER SPEC: [id number] TARIQ: 05/20/[address]: Reba Jacobs MD REQ: [id number] RECD: 05/20/15 STATUS: FELIX GOODSON DR: Will Summers MD _ SOURCE: [facility]OH[facility]I [facility]: ORDERED: Rapid Flu A B Procedure Result Verified Site Rapid Influenza A B Antigen Final 05/20/152052 ML Organism 1 Negative Influenza A B Antigen testing by enzyme immunoassay. Cell culture testing can be performed to confirm negative test results and to assist in detecting other viruses that can produce similar clinical symptoms. Please notify Microbiology Lab if further testing is desired. * ML - MAIN LAB ([facility]) . END OF REPORT * ML=Testing performed at Main Lab DEPARTMENT OF PATHOLOGY, [address] [place] [address] Malik Bingham M.D. Director [facility] # [id number] 6 SEE RESULT BELOW Name: AMEENARACHID Dwain : [address]: Reba Jacobs MD Acct: [id number] Unit: [id number] AGE: 49 Location: [facility] Re05/20/15 SEX: M Status: DEP ER SPEC: [id number] TARIQ: 05/20/[address] [facility] [address]: Reba Jacobs MD REQ: [id number] RECD: 05/20/15 STATUS: FELIX GOODSON DR: Will Summers MD _ SOURCE: THROAT SPDESC: ORDERED: Throat Beta Str Procedure Result Verified Site Throat Beta Strep Culture Final 05/22/15- 0914 ML Negative For Group A Beta Streptococcus * ML - MAIN LAB ([facility]) . END OF REPORT * ML=Testing performed at Main Lab DEPARTMENT OF PATHOLOGY, [address] [place] [address] Malik Bingham M.D. Director [facility] # [id number] 7 A metabolite of Naproxen, O-desmethylnaproxen, has been shown to interfere with the Suzi-Cambridge method for measuring total bilirubin. Samples from patients who have taken Naproxen have shown spurious elevation in total bilirubin levels. 8 Please note updated reference range, effective 02/10/10 9 CHOLESTEROL INTERPRETATION: Desirable: Less than 200 MG/DL Borderline-High Risk: 200-239 MG/DL High-Risk: 240 MG/DL and over 10 HDL INTERPRETATION: Undesirable: High Risk: Less than 40 MG/DL Desirable: Low Risk: Greater than 60 MG/DL 11 LDL INTERPRETATION: Low Risk Optimal Level: LDL Less than 100 MG/DL Near or Above Optimal: LDL 100-129 MG/DL Borderline High Risk: LDL 130-159 MG/DL High Risk: LDL 160-189 MG/DL Very High Risk: LDL Greater than 189 MG/DL 12 Please note: The following may produce a false positive D Dimer test: - Rheumatoid factor greater than 60 IU/ml - Plasma hemoglobin greater than 0.05 gm/dl - Bilirubin greater than 50 mg/dl - Lipids greater than 1000 mg/dl - FDP greater than 20 ug/ml . 13 FINAL: NO GROWTH DAY 2 (<1,000 CFU/mL) 14 FASTING 15 Anion gap measurement may be of limited value in the presence of any alkalosis, especially in a combined acid base disorder. . 16 Classification: Desirable . 17 Classification: Low . 18 CALCULATED LDL APPROXIMATES THE VALUE OF A DIRECT LDL MEASUREMENT. Classification: Near or above optimal . 19 * SERUM LEVELS OF PSA MEASURED USING THE REPUBLIC RESOURCES ACCESS HYBRITECH IMMUNOASSAY SHOULD NOT BE INTERPRETED ABSOLUTE EVIDENCE OF THE PRESENCE OR ABSENCE OF DISEASE. THE PSA VALUE SHOULD BE USED IN CONJUNCTION WITH OTHER PERTINENT CLINICAL DIAGNOSTIC PROCEDURES. Procedures Date CPT Code Description Status 10/01/2014 28463 Rad Exam; Knee Comp Completed 11/25/2013 53336 Xray Knee 3 Views Completed 10/10/2012 01431 Repair Immediate Wound 2.6-7.5CM Completed Scalp/Axillae/Trunk/Extremities 10/10/2012 65026 Excise Benign Lesion 2.1-3CM Completed Scalp/Neck/Hands/Feet/Genitalia 10/10/2012 74993 Excision Benign Lesion Incl Diameter 1.1 - 2.0 CM Completed Scalp,Neck,Hand 05/07/2012 95875 Polysomnography Sleep Staging 4+ Parameters W/Cpap Completed Encounters Type Date Location Provider CPT E/M Dx Office Visit 08/29/2016 [facility] Fernando Haines 31710 L03.116 10:30a Infectious Diseases Dave Vidales R60.0 Office Visit 08/25/2016 4:00p [facility] Will Summers, 35876 L03.116 Medicine - [place] Trev Acosta,FACP E66.01 I10 Office Visit 08/22/2016 12:25p [facility] Destini Weller, 86061 L03.116 Hospitalrashard Acosta G47.33 A41.9 Office Visit 08/21/2016 12:24p [facility] Valeri Abbott, 81634 L03.116 Assoc, Hospitalists DATA ENTRY MANAGER G47.33 A41.9 Office Visit 08/20/2016 [facility] Roberta Reinoso, 35850 L03.116 12:23p Assoc,pc DATA ENTRY MANAGER Hospitalists G47.33 A41.9 Office Visit 11/19/2014 4:00p [facility] [place] [address] 844.9 [place] 278.00 715.36 278.01 V85.42 Office Visit 10/01/2014 2:20p [facility] [place] [address] 844.9 [place] 278.00 715.36 Office Visit 12/23/2013 8:30a [facility] 58729 719.46 Front Office Agent At [facility] Office Visit 11/25/2013 9:45a [facility] 61535 719.46 Front Office Agent At [facility] Office Visit 05/15/2013 9:15a [facility] Dorian Arcezacarias, 36793 327.23 At [facility] 278.01 Office Visit 09/26/2012 9:30a [facility] Dorian Krishan 92357 327.23 [facility] 278.01 706.2 Office Visit 06/20/2012 10:45a [facility] Nickerson 39913 327.23 [facility] 278.01 Office Visit 04/10/2012 9:30a [facility]ian Nickerson, 21483 278.01 [facility] 327.23 478.19 Office Visit 11/15/2010 3:00p DO Not Use Front Office Agent At [facility] Yancy Lynco, 13246 V70.0 [facility] Dave,FACP 278.01 571.9 457.1 Office Visit 09/20/2010 9:40a DO Not Use Front Office Agent At [facility], 47688 682.7 [facility] Dave,FACP 453.40 Office Visit 03/17/2008 8:40a DO Not Use Front Office Agent At [facility], 16880 278.01 [facility] Dave,FACP 571.8 401.1 Office Visit 11/14/2007 3:20p DO Not Use Front Office Agent At [facility], 41704 V70.0 Annita Acosta,FACP 278.01 573.3 477.9 401.1 470 Plan of Care 06/26/2017 - Mike Johnson M.D.R10.84 Generalized abdominal painReferral: Thomas Judge MD, Gastroenterology
[2017-07-17 14:52] LABS: EGFR Non-African American 114.2 (>60)
[2017-07-17 14:56] LABS: Mean Corpuscular Hemoglobin 27 pg (27-31); Mean Platelet Volume 9 um3 (7.4-10.4)
[2017-07-17 14:59] LABS: Hematocrit 36 % (42-52); Hemoglobin 12.3 g/dl (14.0-18.0); Mean Corpuscular HGB Conc 34 g/dl (31-36); Mean Corpuscular Volume 80 fL (80-94); Platelet Count 331 10^3/ul (150-450); Red Blood Count 4.48 10^6/ul (4.0-5.4); Red Cell Distribution Width 21 % (10.5-15); White Blood Count 10.5 10^3/ul (3.5-10.8)
[2017-07-17 15:35] LABS: Monocytes % 7 % (0-13)
[2017-07-17 15:37] LABS: ABS Lymphocytes 1.36 10^3/ul (1.0-4.8); ABS Monocytes 0.73 10^3/ul (0-0.8); ABS Neutrophils 8.19 10^3/ul (1.5-7.7); ABS Nucleated RBC 0 10^3/ul
--- NOTE | 2017-07-17 16:39 | ED ---
Alexy Mcclendon Gabriel, scribed for Zhen Nice MD on 07/17/17 at 1413 . Complex/Multi-Sys Presentation - HPI Summary HPI Summary: This patient is a 51 year old M BIBA to [facility] accompanied by his after being diagnosed with cancer on 07/13/17. Patient had a colonoscopy and a biopsy. The patient rates the pain 2/10 in severity. He was told to come to the ED today so he could get a procedure with Dr. Luna. - History Of Current Complaint Chief Complaint: EDGeneral Time Seen by Provider: 07/17/17 14:06 Hx Obtained From: Patient Onset/Duration: Still Present Timing: Constant Severity Currently: Mild Severity Initially: Mild - Allergies/Home Medications Allergies/Adverse Reactions: Allergies Allergy/AdvReac Type Severity Reaction Status Date / Time Penicillins Allergy See Comment Verified 08/20/16 10:42 PMH/Surg Hx/FS Hx/Imm Hx Endocrine/Hematology History: Denies: Hx Diabetes, Hx Thyroid Disease Cardiovascular History: Denies: Hx Hypertension Respiratory History: Reports: Hx Sleep Apnea - home c-pap Denies: Hx Asthma, Hx Chronic Obstructive Pulmonary Disease (COPD) GI History: Reports: Other GI Disorders - pt states "fatty liver" Denies: Hx Ulcer History: Denies: Hx Renal Disease Sensory History: Reports: Hx Contacts or Glasses Opthamlomology History: Reports: Hx Contacts or Glasses - Cancer History Cancer Type, Location and Year: colon 07/17/17 - Surgical History Surgery Procedure, Year, and Place: 1984 - Right shoulder surgery - torn bone cap Infectious Disease History: No Infectious Disease History: Denies: Hx Clostridium Difficile, Hx Hepatitis, Hx Human Immunodeficiency Virus (HIV), Hx of Known/Suspected MRSA, Hx Shingles, Hx Tuberculosis, Hx Known/ Suspected VRE, Hx Known/Suspected VRSA, History Other Infectious Disease, Traveled Outside the [place] in Last 30 Days - Family History Known Family History: Positive: Diabetes Negative: Cardiac Disease, Hypertension - Social History Alcohol Use: Rare Substance Use Type: Reports: None Smoking Status (MU): Never Smoked Tobacco Review of Systems Negative: Fever Negative: Slurred Speech All Other Systems Reviewed And Are Negative: Yes Physical Exam - Summary Physical Exam Summary: Appearance: The patient is well-nourished in no acute distress and in no acute pain. Patient has jaundice Skin: The skin is warm and dry and skin color reflects adequate perfusion. HEENT: The head is normocephalic and atraumatic. The pupils are equal and reactive. The conjunctivae are icterus and without drainage. Nares are patent and without drainage. Mouth reveals moist mucous membranes and the throat is without erythema and exudate. The external ears are intact. The ear canals are patent and without drainage. The tympanic membranes are intact. Neck: the neck is supple with full range of motion and non-tender. There are no carotid bruits. There is no neck vein distension. Respiratory: Chest is non-tender. Lungs are clear to auscultation and breath sounds are symmetrical and equal. Cardiovascular: Heart is regular rate and rhythm. There is no murmur or rub auscultated. There is no peripheral edema and pulses are symmetrical and equal. Abdomen: The abdomen is soft and non-tender. There are normal bowel sounds heard in all four quadrants and there is no organomegaly palpated. Musculoskeletal: There is no back tenderness noted. Extremities are non-tender with full range of motion. There is good capillary refill. There is no peripheral edema or calf tenderness elicited. Neurological: Patient is alert and oriented to person, place and time. The patient has symmetrical motor strength in all four extremities. Cranial nerves are grossly intact. Deep tendon reflexes are symmetrical and equal in all four extremities. Psychiatric: The patient has an appropriate affect and does not exhibit any anxiety or depression. Triage Information Reviewed: Yes Vital Signs On Initial Exam: Initial Vitals Temp Pulse Resp BP Pulse Ox 97 F 99 20 160/89 98 07/17/17 10:20 07/17/17 10:20 07/17/17 10:20 07/17/17 10:20 07/17/17 10:20 Vital Signs Reviewed: Yes Diagnostics - Vital Signs Vital Signs Temp Pulse Resp BP Pulse Ox 07/17/17 12: 96.9 F 105 20 159/93 96 07/17/17 10:20 97 F 99 20 160/89 98 - Laboratory Lab Results: Lab Results 07/17/17 07/17/17 07/17/17 Range/Units 14:20 14:20 14:20 WBC 10.5 (3.5-10.8) 10^3/ul RBC 4.48 (4.0-5.4) 10^6/ul Hgb 12.3 L (14.0-18.0) g/dl Hct 36 L (42-52) % MCV 80 (80-94) fL MCH 27 (27-31) pg MCHC 34 (31-36) g/dl RDW 21 H (10.5-15) % Plt Count 331 (150-450) 10^3/ul MPV 9 (7.4-10.4) um3 Absolute Neuts (auto) 8.19 H (1.5-7.7) 10^3/ul Absolute Lymphs (auto) 1.36 (1.0-4.8) 10^3/ul Absolute Monos (auto) 0.73 (0-0.8) 10^3/ul Absolute Eos (auto) 0.10 (0-0.6) 10^3/ul Absolute Basos (auto) 0.10 (0-0.2) 10^3/ul Absolute Nucleated RBC 0 10^3/ul Neutrophils % 78 (38-83) % Lymphocytes % 13 L (25-47) % Monocytes % 7 (0-13) % Eosinophils % 1 (0-6) % Basophils % 1 (0-2) % Normal RBC Morphology Normal (Normal) Sodium 136 (133-145) mmol/L Potassium 3.8 (3.5-5.0) mmol/L Chloride 101 (101-111) mmol/L Carbon Dioxide 28 (22-32) mmol/L Anion Gap 7 (2-11) mmol/L BUN 9 (6-24) mg/dL Creatinine 0.73 (0.67-1.17) mg/dL Est GFR ( Amer) 146.9 (>60) Est GFR (Non-Af Amer) 114.2 (>60) BUN/Creatinine Ratio 12.3 (8-20) Glucose 101 H (70-100) mg/dL Lactic Acid 0.9 (0.5-2.0) mmol/L Calcium 9.3 (8.6-10.3) mg/dL Total Bilirubin 17.50 H* (0.2-1.0) mg/dL AST 116 H (13-39) U/L ALT 125 H (7-52) U/L Alkaline Phosphatase 457 H (34-104) U/L C-Reactive Protein 53.66 H (< 5.00) mg/L Total Protein 7.5 (6.4-8.9) g/dL Albumin 3.3 (3.2-5.2) g/dL Globulin 4.2 H (2-4) g/dL Albumin/Globulin Ratio 0.8 L (1-3) Lipase < 10 L (11.0-82.0) U/L Result Diagrams: 07/17/17 14:20 07/17/17 14:20 Lab Statement: Any lab studies that have been ordered have been reviewed, and results considered in the medical decision making process. Complex Multi-Symp Course/Dx Course Of Treatment: Mr. 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 The obstruction too proximal for our frame changer so he recommended transfer to [facility]. Dr. Mir agreed that that was appropriate and Dr. Otero accepted. - Diagnoses Provider Diagnoses: Biliary obstruction - Physician Notifications Discussed Care Of Patient With: Robbie Mir Time Discussed With Above Provider: 15:39 Instructed by Provider To: Other - Discussed patient care with Dr. Mir, bilirubin surgeon. He stated the patient needs to be admitted and transferred for an urgent procedure. Discharge - Discharge Plan Condition: Stable Disposition: OTHER Discharge Disposition Comment: transfer to [facility] Referrals: Will Summers MD [Primary Care Provider] - Consult Consult: 15:52 We discussed patient care with Dr. Otero, [facility] and he accepts the patient for transfer. The documentation as recorded by the Alexy saha Gabriel accurately reflects the service I personally performed and the decisions made by me, Zhen Nice MD.
[2017-07-17 17:08] VITALS: BP 149/88
== END 2017-07-17 17:07 ==
LOC: ED 10:12
DX: K83.1 Obstruction of bile duct (principal); C18.9 Malignant neoplasm of colon, unspecified; C78.7 Secondary malignant neoplasm of liver and intrahepatic bile duct; C77.9 Secondary and unspecified malignant neoplasm of lymph node, unspecified; G47.30 Sleep apnea, unspecified
CPT/HCPCS: 36415; 80053; 83605; 83690; 85025; 86140; 99283

== ENCOUNTER 2017-08-13 10:52 | Day surgery (SDC) | payer OTHER ==
[~2017-08-13 10:52] MED LIST: Buffered Lidocaine 0.9% SYRIN* 5 ML/SYR SYRINGE INTRADERM ONE; Metoclopramide TAB* 10 MG PO ONE
[2017-08-13] MEDS ORDERED: Metoclopramide TAB* 10 MG ONE (10:56)
[2017-08-13] MEDS ORDERED: Clindamycin 900 MG IVPREMIX(* 900 MG/50 ML SDV IV ONE (10:56)
[2017-08-13] MEDS ORDERED: Buffered Lidocaine 0.9% SYRIN* 5 ML/SYR SYRINGE ONE (10:57)
[2017-08-13] MEDS ORDERED: fentaNYL* 50 MCG/ML 2 ML VIAL (100 MCG VIAL) ONE (11:21)
[2017-08-13] MEDS ORDERED: KETAMINE HCL* 50 MG/ML 10 ML VIAL ONE (11:21)
[2017-08-13] MEDS ORDERED: Ketorolac INJ* 30 MG/ML 1 ML VIAL ONE (11:21)
[2017-08-13] MEDS ORDERED: Dexamethasone IV* 4 MG/ML 1 ML (4 MG) ONE (11:21)
[2017-08-13] MEDS ORDERED: Lidocaine 2% PF * 5 ML VIAL ONE (11:21)
[2017-08-13] MEDS ORDERED: Propofol* 10 MG/ML 20 ML BTL IV PUSH ONE ×2 (11:21→12:36)
[2017-08-13] MEDS ORDERED: Ondansetron INJ* 2 MG/ML VIAL ONE (11:21)
[2017-08-13] MEDS ORDERED: Midazolam* 1 MG/ML 10 ML VIAL (10 MG) ONE (11:22)
[2017-08-13] MEDS ORDERED: Lidocaine 1% INJ* 10 MG/ML 30 ML SDV ONE ×2 (11:45→11:55)
[2017-08-13] MEDS ORDERED: oxyCODONE/Acetamin 5/325 MG* TAB PO PRN (11:54)
[2017-08-13] MEDS ORDERED: fentaNYL* 50 MCG/ML 2 ML VIAL (100 MCG VIAL) IV PRN (11:54)
[2017-08-13] MEDS ORDERED: Ondansetron INJ* 2 MG/ML VIAL IV PRN (11:54)
[2017-08-13] MEDS ORDERED: Naloxone* 0.4 MG/ML 1 ML VIAL IV PRN (11:54)
--- NOTE | 2017-08-13 13:08 | BRIEFOPN ---
Brief Operative Note - Surgery Procedures: OPERATIVE REPORT PRE-OP: Metastatic colon cancer POST-OP: Same PROCEDURE: Placement of left chest wall subclavian wall vein 8 F PowerPort SURGEON: MD Biju ANESTHESIA:Local with MAC Dr. Baptiste ASST: none IVF:min EBL:min SPECIMEN:none DRAIN: none WOUND CLASS:One COMPLICATIONS: none TO PACU
[2017-08-13 13:51] VITALS: BP 117/67
--- NOTE | 2017-08-13 13:58 | RAD ---
HISTORY: Status post port placement COMPARISONS: None VIEWS: 1: frontal portable view of the chest at 1:32 PM FINDINGS: LINES AND TUBES: Left-sided chest port is noted from subclavian approach with the tip overlying the right atrium. CARDIOMEDIASTINAL SILHOUETTE: The cardiomediastinal silhouette is normal for portable technique. PLEURA: The costophrenic angles are sharp. No pleural abnormalities are noted. There is no appreciable pneumothorax. LUNG PARENCHYMA: The lungs are clear. ABDOMEN: The upper abdomen is clear. There is no subphrenic gas. BONES AND SOFT TISSUES: No bone or soft tissue abnormalities are noted. IMPRESSION: LINES AND TUBES ABOVE. NO ACTIVE CARDIOPULMONARY DISEASE.
--- NOTE | 2017-08-13 14:53 | RAD ---
INDICATION: Power port placement. COMPARISON: No relevant prior exams available on the [facility] for comparison. TECHNIQUE: 79.6 seconds fluoroscopy. FINDINGS: Spot image documents the tip of the LEFT side subclavian venous access chest port at level of the RIGHT atrium. IMPRESSION: Procedural fluoroscopy. CPT II Codes: 6045F
--- NOTE | 2017-08-14 19:08 | OP ---
CC: SUDHAKAR Hall * DATE OF OPERATION: 08/13/17 - [facility] DATE OF : 69 SURGEON: Jeferson Ivy MD ANESTHESIOLOGIST: Bryce Baptiste MD ANESTHESIA: Local with monitored anesthesia care. PRE-OP DIAGNOSIS: Metastatic colon cancer. POST-OP DIAGNOSIS: Metastatic colon cancer. OPERATIVE PROCEDURE: Insertion of an 8-Mongolian left chest wall PowerPort. ESTIMATED BLOOD LOSS: Minimal. SPECIMENS: None. WOUND CLASSIFICATION: I. DRAINS: None. COMPLICATIONS: None. DESCRIPTION OF PROCEDURE: Written informed consent was obtained, the left chest was marked with indelible ink and preoperative antibiotics were administered. The patient was taken to the operating room and placed in the supine position. Sequential compression devices were placed. The left and right chest and neck were prepped and draped in the usual sterile fashion. Time-out verification was completed. 1% lidocaine was infiltrated in the left infraclavicular area and the chest wall and using an 18-gauge Cook needle, the subclavian vein was punctured on the first pass with good blood return. The guidewire was inserted and confirmed by fluoroscopy to be into the superior vena cava. Next, a small transverse incision was made just below the puncture site and a subcutaneous pocket was made inferior to this incision, large enough to fit the PowerPort. The catheter was then tunneled from the puncture site to the port site and using the sheath peel away and dilator system, the catheter was inserted into the central venous system and positioned with its tip at the junction of the superior vena cava and the right atrium. The catheter timothy blood well and flushed well at this location. The catheter at the skin level was then cut to the appropriate length and attached to the port, which was placed in the subcutaneous pocket. It was secured to the subcutaneous tissue with 2 separate 3-0 Prolene sutures. The catheter was then flushed and timothy blood well and then subsequently flushed with a heparin solution. Hemostasis was assured. The wounds were closed in layers of 3-0 and 4-0 Vicryl suture. Steri-Strips and occlusive dressing were applied. The patient tolerated the procedure well, was taken to the recovery room in stable condition. Postprocedure chest x-ray showed the catheter to be in good position without evidence of pneumothorax or other acute change. [id number]/[facility] #: [id number] [facility]
== END 2017-08-13 13:55 | disposition home or self-care (01) ==
LOC: OR 10:52
PROVIDERS: ATTEND Surgery
DX: C18.7 Malignant neoplasm of sigmoid colon (principal); K75.81 Nonalcoholic steatohepatitis (NASH); G47.33 Obstructive sleep apnea (adult) (pediatric); I10 Essential (primary) hypertension; E66.01 Morbid (severe) obesity due to excess calories; Z68.41 Body mass index [BMI] 40.0-44.9, adult; C78.7 Secondary malignant neoplasm of liver and intrahepatic bile duct; C78.00 Secondary malignant neoplasm of unspecified lung; D64.9 Anemia, unspecified
CPT/HCPCS: 71045; 76001; A9270-GY; C1788; J1100; J1642; J1885; J2250; J2405; J2704; J3010

== ENCOUNTER 2017-08-25 08:28 | Emergency (ER) | payer OTHER ==
--- OUTSIDE RECORDS SUMMARY | 2017-08-25 08:36 | XMS REPORT ---
:1965 External Reference #:[id number] Author Organization [facility] Address [address] [address] Phone [phone] Care Team Providers Name Role Phone Will Summers MD Care Team Information Home Teaching Grades 9 Thru 12 Teacher Unavailable Will Summers MD Primary Care Physician Unavailable Payers Type Date Identification Numbers Payment Provider Subscriber Commercial Effective: Policy Number: [employer]CP[employer] Kaylee Lindquist 2011 [id number] Group Number: [id number] [address] PayID: [id number] [place] [address] Medigap Part B Expires: 2011 Policy Number: [employer] Insurance Kaylee Lindquist [id number] Group Number: [id number] [address] PayID: [id number] [place] [address] Problems Date Description Provider Status Onset: 07/13/2017 Adenocarcinoma of sigmoid colon Rudolph Marshall M.D.,FACP Onset: 08/25/2016 Nonalcoholic steatohepatitis Rudolph Marshall M.D.,FACP Onset: 11/14/2007 Morbid obesity Rudolph Marshall M.D.,FACP Onset: 11/14/2007 Allergic rhinitis Rudolph Marshall M.D.,FACP Onset: 11/14/2007 Benign essential hypertension Rudolph Marshall M.D.,FACP Onset: 03/17/2008 Chronic nonalcoholic liver Will Summers, Active disease MMichelle,FACP Onset: 04/10/2012 Obstructive sleep apnea syndrome Dorian Nickerson M.D. Active Onset: 04/10/2012 Disorder of nasal cavity Dorian Nickerson M.D. Active Onset: 12/07/2014 Swelling of limb Oscar Steele MD Active Onset: 10/01/2014 Sprain of knee and leg Oscar Steele MD Inactive Inactive: 08/25/2016 Onset: 10/01/2014 Obesity Oscar [...] Lives With Spouse Occupation Currently Working at [employer] Cigarette Use Never Smoked Cigarettes Cigars 08/25/2016 [...] needed. Bi-Pap 06/20/ Active 1unit ipap 16/ 2011 s epap 12 Glendy with ab hughes M.D. supplies Clindamycin 08/29/ Hx Capsules 300mg 30cap 1 tabs by L03.116 Fernando HCL 2017 - s mouth 3 D. 06/25/ times a day; Kanu Vidales take for M.DHarley return of chills, fevers, leg swelling, redness Cephalexin 08/22/ Hx Capsules 500mg 40cap 1 by mouth 4 Other 2017 - s times a day Ordering 09/01/ x 10 days Provider 2017 Cephalexin 09/20/ Hx Capsules 500mg 28cap qid po 682.7 Will 2010 - s Yancy Summers, 11/15/ M.D.,FACP 2010 Ibuprofen 09/20/ Hx Tablets 600mg 60tab tid prn 682.7 Will 2010 - s Yancy Summers, 10/01/ MHarleyD.,FACP 2014 Nasonex 11/13/ Hx Suspension 50mcg/Act 1Mon 2 spray kary 477.9 Will 2007 - each side qd Yancy Summers, M.DHarley,FACP 2013 Claritin / Hx Tablets 10mg 30tab PO qd prn Unknown 0000 - s 2013 Flonase / Hx Suspension 1Bott 1 Intranasal Unknown 0000 - le puff To Each 03/17/ Nostril 2007 Daily Immunizations CPT Code Status Date Vaccine Lot # [id number] Refused 06/11/2009 Influenza Virus Vaccine, Pandemic Formulation Vital Signs Date Vital Result Comment 07/27/2017 Weight 327.00 lb Heart Rate 103 /min BP Systolic Sitting 140 mmHg BP Diastolic Sitting 106 mmHg Pain Level 3 O2 % BldC Oximetry 96 % 06/26/2017 Height 73 inches 6'1" Weight 352.00 [...] Test Date Test Result H/L Range Note Manual Differential 07/17/2017 Neutrophil % 78 % 38-83 Lymphocytes % 13 % Low 25-47 Monocytes % 7 % 0-13 Eosinophils % 1 % 0-6 Basophil % 1 % 0-2 RBC Morphology Normal Normal CBC Auto Diff 07/17/2017 White Blood Count 10.5 10^3/uL 3.5-10.8 Red Blood Count 4.48 10^6/uL 4.0-5.4 Hemoglobin 12.3 g/dL Low 14.0-18.0 Hematocrit 36 % Low 42-52 Mean Corpuscular Volume 80 fL 80-94 Mean Corpuscular Hemoglobin 27 pg 27-31 Mean Corpuscular HGB Conc 34 g/dL 31-36 Red Cell Distribution Width 21 % High 10.5-15 Platelet Count 331 10^3/uL 150-450 Mean Platelet Volume 9 um3 7.4-10.4 Abs Neutrophils 8.19 10^3/uL High 1.5-7.7 Abs Lymphocytes 1.36 10^3/uL 1.0-4.8 Abs Monocytes 0.73 10^3/uL 0-0.8 Abs Eosinophils 0.10 10^3/uL 0-0.6 Abs Basophils 0.10 10^3/uL 0-0.2 Abs Nucleated RBC 0 10^3/uL Laboratory test finding 07/17/2017 Lipase < 10 U/L Low 11.0-82.0 C Reactive Protein 53.66 mg/L High < 5.00 1 Comp Metabolic Panel 07/17/2017 Sodium 136 mmol/L 133-145 Potassium 3.8 mmol/L 3.5-5.0 Chloride 101 mmol/L 101-111 Co2 Carbon Dioxide 28 mmol/L 22-32 Anion Gap 7 mmol/L 2-11 Glucose 101 mg/dL High 70-100 Blood Urea Nitrogen 9 mg/dL 6-24 Creatinine 0.73 mg/dL 0.67-1.17 BUN/Creatinine Ratio 12.3 8-20 Calcium 9.3 mg/dL 8.6-10.3 Total Protein 7.5 g/dL 6.4-8.9 Albumin 3.3 g/dL 3.2-5.2 Globulin 4.2 g/dL High 2-4 Albumin/Globulin Ratio 0.8 Low 1-3 Alkaline Phosphatase 457 U/L High 34-104 Alt 125 U/L High 7-52 Ast 116 U/L High 13-39 Egfr Non- 114.2 >60 Egfr 146.9 >60 2 Total Bilirubin 17.50 mg/dL High 0.2-1.0 3 Laboratory test finding 07/17/2017 Lactic Acid 0.9 mmol/L 0.5-2.0 4 Comp Metabolic Panel 07/12/2017 Sodium 134 mmol/L 133-145 Potassium 3.8 mmol/L 3.5-5.0 Chloride 98 mmol/L Low 101-111 Co2 Carbon Dioxide 29 mmol/L 22-32 Anion Gap 7 mmol/L 2-11 Glucose 82 mg/dL 70-100 Blood Urea Nitrogen 9 mg/dL 6-24 Creatinine 0.70 mg/dL 0.67-1.17 BUN/Creatinine Ratio 12.9 8-20 Calcium 9.1 mg/dL 8.6-10.3 Total Protein 6.8 g/dL 6.4-8.9 Albumin 3.3 g/dL 3.2-5.2 Globulin 3.5 g/dL 2-4 Albumin/Globulin Ratio 0.9 Low 1-3 Alkaline Phosphatase 409 U/L High 34-104 Alt 132 U/L High 7-52 Ast 106 U/L High 13-39 Egfr Non- 119.9 >60 Egfr 154.2 >60 5 Total Bilirubin 14.90 mg/dL High 0.2-1.0 6 CBC Auto Diff 07/12/2017 White Blood Count 7.8 10^3/uL 3.5-10.8 Red Blood Count 4.44 10^6/uL 4.0-5.4 Hemoglobin 12.0 g/dL Low 14.0-18.0 Hematocrit 35 % Low 42-52 Mean Corpuscular Volume 79 fL Low 80-94 Mean Corpuscular Hemoglobin 27 pg 27-31 Mean Corpuscular HGB Conc 34 g/dL 31-36 Red Cell Distribution Width 19 % High 10.5-15 Platelet Count 285 10^3/uL 150-450 Mean Platelet Volume 9 um3 7.4-10.4 Abs Neutrophils 5.2 10^3/uL 1.5-7.7 Abs Lymphocytes 1.6 10^3/uL 1.0-4.8 Abs Monocytes 0.4 10^3/uL 0-0.8 Abs Eosinophils 0.5 10^3/uL 0-0.6 Abs Basophils 0.1 10^3/uL 0-0.2 Abs Nucleated RBC 0 10^3/uL Granulocyte % 66.7 % 38-83 Lymphocyte % 20.4 % Low 25-47 Monocyte % 4.9 % 1-9 Eosinophil % 6.8 % High 0-6 Basophil % 1.2 % 0-2 Nucleated Red Blood Cells % 0 Laboratory test 07/12/2017 Carcinoembryonic Antigen 665.5 ng/mL High 0.1- 5.0 7 finding Cea Laboratory test 07/12/2017 Surgical Interface Order SEE RESULT BELOW 8 finding Occult Blood,Stool 07/09/2017 Occult Blood - Stool positive x3 (3 Spec) CBC Auto Diff 06/26/2017 White Blood Count 6.8 10^3/uL 3.5-10.8 Red Blood Count 4.61 10^6/uL 4.0-5.4 Hemoglobin 12.1 g/dL Low 14.0-18.0 Hematocrit 37 % Low 42-52 Mean Corpuscular Volume 80 fL 80-94 Mean Corpuscular Hemoglobin 26 pg Low 27-31 Mean Corpuscular HGB Conc 33 g/dL 31-36 Red Cell Distribution Width 17 % High 10.5-15 Platelet Count 302 10^3/uL 150-450 Mean Platelet Volume 8 um3 7.4-10.4 Abs Neutrophils 4.1 10^3/uL 1.5-7.7 Abs Lymphocytes 1.6 10^3/uL 1.0-4.8 Abs Monocytes 0.7 10^3/uL 0-0.8 Abs Eosinophils 0.4 10^3/uL 0-0.6 Abs Basophils 0 10^3/uL 0-0.2 Abs Nucleated RBC 0 10^3/uL Granulocyte % 60.6 % 38-83 Lymphocyte % 23.1 % Low 25-47 Monocyte % 9.8 % High 1-9 Eosinophil % 5.9 % 0-6 Basophil % 0.6 % 0-2 Nucleated Red Blood Cells % 0.1 Comp Metabolic Panel 06/26/2017 Sodium 137 mmol/L 133-145 Potassium 4.1 mmol/L 3.5-5.0 Chloride 103 mmol/L 101-111 Co2 Carbon Dioxide 25 mmol/L 22-32 Anion Gap 9 mmol/L 2-11 Glucose 102 mg/dL High 70-100 Blood Urea Nitrogen 11 mg/dL 6-24 Creatinine 0.66 mg/dL Low 0.67-1.17 BUN/Creatinine Ratio 16.7 8-20 Calcium 9.3 mg/dL 8.6-10.3 Total Protein 7.3 g/dL 6.4-8.9 Albumin 3.6 g/dL 3.2-5.2 Globulin 3.7 g/dL 2-4 Albumin/Globulin Ratio 1.0 1-3 Total Bilirubin 3.60 mg/dL High 0.2-1.0 Alkaline Phosphatase 305 U/L High 34-104 Alt 154 U/L High 7-52 Ast 105 U/L High 13-39 Egfr Non- 128.3 >60 Egfr 165.0 >60 9 Laboratory test finding 06/26/2017 C Reactive Protein 55.82 mg/L High &lt ; 5.00 10 Erythrocyte Sed Rate 83 mm/Hr High 0-14 TSH (Thyroid Stim Horm) 1.68 mcIU/mL 0.34-5.60 CBC Auto Diff 08/20/2016 White Blood Count [...] Egfr Non- 65.9 >60 Egfr 84.7 >60 11 Laboratory test finding 08/20/2016 C Reactive Protein 188.50 mg/L High &lt ; 5.00 12 Laboratory test finding 08/20/2016 Lactic Acid 2.3 mmol/L High 0.5-2.0 13 Blood Culture SEE RESULT BELOW 14 Laboratory test finding 05/20/2015 Rapid Influenza A B SEE RESULT BELOW 15 Antigen Throat-Beta Strept SEE RESULT BELOW 16 Xray 10/01/2014 Knee Complete LT <pending> Liver Function Panel 11/15/2010 Total Protein 6.8 GM/DL 6.2-8.1 Albumin 3.7 GM/DL 3.6-5.4 Globulin 3.1 GM/DL 2-4 Albumin/Globulin Ratio 1.2 1-3 Bilirubin Total 0.9 mg/dL 0.4-1.5 17 Bilirubin Direct 0.1 mg/dL 0.1-0.5 Indirect Bilirubin 0.8 mg/dL 0.3-1.0 18 Alkaline Phosphatase 43 U/L 39-117 Alt (SGPT) 45 U/L 17-63 Ast (Sgot) 33 U/L 12-42 Laboratory test finding 11/15/2010 TSH 2.56 MIU/ML 0.34-5.60 Lipid Profile (Trig/Chol/HDL) 11/14/2010 Triglyceride 153 mg/dL 40-200 Cholesterol 164 mg/dL Less Than 200 19 High Density Lipoprotein 38 mg/dL Low 40-60 20 Cholesterol/HDL Ratio 4.32 AVERAGE 1-4.97 Low Density Lipoprotein 95 mg/dL Less Than 100 21 Laboratory test finding 11/14/2010 Glucose 97 mg/dL 70-100 Laboratory test finding 09/20/2010 C Reactive Protein 2.3 mg/dL High Less Than 0.5 D Dimer Quantitative 472 NG/ML High Less Than 230 22 CBC With Electronic Diff 09/20/2010 White Blood [...] Eosinophils 0.3 0-0.6 Abs Basophils 0 0-0.2 Urine Culture & 09/12/2010 Urine Culture Sensitivi NG 23 Sensitivi Laboratory test finding 03/02/2008 Ferritin 192 [...] Metabolic Panel 09/05/2007 One Over Creatinine 1.00 24 Anion Gap 5.0 mmol/L 2-11 24, 25 BUN 14 mg/dL 6-24 24 Calcium 9.2 mg/dL 8.7-10.2 24 Chloride 104 mmol/L 101-111 24 Co2 (Carbon Dioxide) 30.0 mmol/L 22-32 24 Glucose 90 mg/dL 70-105 24 Potassium 4.1 mmol/L 3.5-5.0 24 Sodium 139 mmol/L 135-145 24 BUN/Creatinine Ratio 14.0 8-20 24 Creatinine 1.0 mg/dL 0.5-1.4 24 Lipid Profile 09/05/2007 Cholesterol/HDL Ratio 4.38 AVERAGE 1-4.97 24 (Trig/Chol/HDL) Cholesterol 171 mg/dL Less Than 200 24, 26 Triglyceride 158 mg/dL 40-200 24 High Density Lipoprotein 39 mg/dL Low 40-60 24, 27 Low Density Lipoprotein 100 mg/dL Less Than 100 24, 28 Laboratory test finding 09/05/2007 PSA Screening 1.45 NG/ML 0-4 24, 29 1 Acute inflammation: >10.00 2 Because ethnic data is not always readily [...] 15-29 5 Kidney failure <15 (or dialysis) 3 Critical Result TBIL:17.50 Called to [id number] at: 14:58:09 by:[id number] Read back by:[id number] 4 [facility] Severe Sepsis and Septic Shock Management Bundle Measure requires all lactic acids initially measuring >2.0 mmol/L be repeated. 5 Because ethnic data is not always readily [...] 15-29 5 Kidney failure <15 (or dialysis) 6 Critical Result TBIL:14.90 Called to BRENNAN HUTCHINS at: 16:25:04 by:[id number] Read back by:BRENNAN HUTCHINS 7 Nonsmokers: < 2.9 ng/mL Some smokers may have elevated CEA, usually <5.0 ng/mL. Serum markers are not specific for malignancy, and values may vary by method. The testing method is an immunoenzymatic assay commercial coordinator by [employer] performed on [employer] DXI 600. Do not interpret serum CEA levels as absolute evidence of the presence or the absence of malignant disease. Use serum CEA in conjunction with information from the clinical evaluation of the patient and other diagnostic procedures. 8 SEE RESULT BELOW Name: RACHID LINDQUIST Dwain : [address]: Thomas Judge MD Acct: [id number] Unit: [id number] AGE: 51 Location: ENDO Re07/12/17 SEX: M Status: REG REF SPEC: [id number] TARIQ: 07/12/17- [facility] DR: Thomas Judge MD REQ: [id number] RECD: 07/12/174010 STATUS: BETTYE FANNY DR: Will Johnson III, MD _ ORDERED: LEVEL 4/2, IMMUNO-FIRST, IMMUNO-ADDL/3 Immunohistochemistry, with appropriately reacting controls, was performed on sections cut from specimen 1 with the following results: MLH-1 intact PMS-2 intact MSH-2 intact MSH-6 intact There is no evidence of microsatellite instability/mismatch repair protein deficiency. Addendum Signed (signature on file) Ina Oseguera MD 0926 FINAL DIAGNOSIS 1. Colon, sigmoid, biopsy: -- Invasive adenocarcinoma, moderately differentiated. 2. Colon, sigmoid, biopsy: -- Tubulovillous adenoma. -- No high grade dysplasia or malignancy. COMMENT: Mismatch repair protein immunohistochemistry is pending and the results will be reported in an addendum. Dr. Bingham reviewed this case in intradepartmental consultation and agrees with the diagnosis. CLINICAL HISTORY CT scan from 07/11/17 confirms the apple-core lesion in the sigmoid colon. Patient appears to have lymphadenopathy and potentially metastasis to his lungs and liver CONTINUED ON NEXT PAGE * ML=Testing performed at Main Lab DEPARTMENT OF PATHOLOGY, [address] [place] [address] Malik Bingham M.D. Director [facility] # [id number] RUN DATE: 07/17/17 [facility] LAB LIVE PAGE 2 Patient: RACHID LINDQUIST [id number] (Continued) POST-OPERATIVE DIAGNOSIS (Continued) POST-OPERATIVE DIAGNOSIS Colonoscopy to transverse ? at 17-26 cm ? colon cancer biopsy; polyp at 15 cm biopsied GROSS DESCRIPTION 1. The specimen is received in formalin labeled, Biopsies Sigmoid Colon Mass, and consists of a 0.7 x 0.5 x 0.2 cm aggregate of flowers-pink irregular soft tissue fragments which is submitted entirely in one cassette. 2. The specimen is received in formalin labeled, Biopsies Sigmoid Polyp, and consists of two flowers-pink to caraballo irregular soft tissue fragments averaging 0.3 x 0.2 x 0.2 cm which are submitted entirely in one cassette. Signed (signature on file) Ina Oseguera MD 1038 END OF REPORT * ML=Testing performed at Main Lab DEPARTMENT OF PATHOLOGY, [address] [place] [address] Malik Bingham M.D. Director [facility] # [id number] 9 Because ethnic data is not always readily [...] 15-29 5 Kidney failure <15 (or dialysis) 10 Acute inflammation: >10.00 11 Because ethnic data is not always readily [...] 15-29 5 Kidney failure <15 (or dialysis) 12 Acute inflammation: >10.00 13 Critical Result LACT:2.3 Called to [id number] at: 16:44:21 by:[id number] Read back by:[id number] [facility] Severe Sepsis and Septic Shock Management Bundle Measure requires all lactic acids initially measuring >2.0 mmol/L be repeated. 14 SEE RESULT BELOW Name: RACHID LINDQUIST : [address]: Destini Kat MD Acct: [id number] Unit: [id number] AGE: 50 Location: [place] [address] Re08/20/16 Dis: 08/22/16 SEX: M Status: DIS IN SPEC: [id number] TARIQ: 08/20/16 [facility] DR: Oswaldo King MD REQ: [id number] RECD: 08/20/16 STATUS: FELIX GOODSON DR: Will Summers MD _ SOURCE: BLOOD,VENO SPDESC: ORDERED: Blood Cult Procedure Result Reported Site Aerobic Culture Bottle Final 08/25/16- 1622 ML No Growth Day 5 Anaerobic Culture Bottle Final 08/25/16- 1622 ML No Growth Day 5 * ML - MAIN LAB ([facility]) . END OF REPORT * ML=Testing performed at Main Lab DEPARTMENT OF PATHOLOGY, [address] [place] [address] Malik Bingham M.D. Director [facility] # [id number] 15 SEE RESULT BELOW Name: RACHID LINDQUIST : [address]: Reba Jacobs MD Acct: [id number] Unit: [id number] AGE: 49 Location: [facility] Re05/20/15 SEX: M Status: DEP ER SPEC: [id number] TARIQ: 05/20/15 [facility] DR: Reba Jacobs MD REQ: [id number] RECD: 05/20/15 STATUS: FELIX GOODSON DR: Will Summers MD _ SOURCE: [facility]: ORDERED: Rapid Flu A B Procedure Result [...] is desired. * ML - MAIN LAB ([facility]) . END OF REPORT * ML=Testing performed at Main Lab DEPARTMENT OF PATHOLOGY, [address] [place] [address] Malik Bingham M.D. Director [facility] # [id number] 16 SEE RESULT BELOW Name: RACHID LINDQUIST DOB: [address]: Reba Jacobs MD Acct: [id number] Unit: [id number] AGE: 49 Location: [facility] Re05/20/15 SEX: M Status: DEP ER SPEC: [id number] TARIQ: 05/20/15 [facility] DR: Reba Jacobs MD REQ: [id number] RECD: 05/20/15 STATUS: FELIX GOODSON DR: Will Summers MD _ SOURCE: THROAT SPDESC: ORDERED: Throat Beta Str Procedure Result Verified Site Throat Beta Strep Culture Final 05/22/15- 09 ML Negative For Group A Beta Streptococcus * ML - MAIN LAB ([facility]) . END OF REPORT * ML=Testing performed at Main Lab DEPARTMENT OF PATHOLOGY, [address] [place] [address] Malik Bingham M.D. Director [facility] # [id number] 17 A metabolite of Naproxen, O-desmethylnaproxen, has been shown to interfere with the Jendrassik-[place]view method for measuring total bilirubin. Samples from patients who have taken Naproxen have shown spurious elevation in total bilirubin levels. 18 Please note updated reference range, effective 02/10/10 19 CHOLESTEROL INTERPRETATION: Desirable: Less than 200 MG/DL Borderline-High Risk: 200-239 MG/DL High-Risk: 240 MG/DL and over 20 HDL INTERPRETATION: Undesirable: High Risk: Less than 40 MG/DL Desirable: Low Risk: Greater than 60 MG/DL 21 LDL INTERPRETATION: Low Risk Optimal Level: LDL Less than 100 MG/DL Near or Above Optimal: LDL 100-129 MG/DL Borderline High Risk: LDL 130-159 MG/DL High Risk: LDL 160-189 MG/DL Very High Risk: LDL Greater than 189 MG/DL 22 Please note: The following may produce a false positive D Dimer test: - Rheumatoid factor greater than 60 IU/ml - Plasma hemoglobin greater than 0.05 gm/dl - Bilirubin greater than 50 mg/dl - Lipids greater than 1000 mg/dl - FDP greater than 20 ug/ml . 23 FINAL: NO GROWTH DAY 2 (<1,000 CFU/mL) 24 FASTING 25 Anion gap measurement may be of limited value in the presence of any alkalosis, especially in a combined acid base disorder. . 26 Classification: Desirable . 27 Classification: Low . 28 CALCULATED LDL APPROXIMATES THE VALUE OF A DIRECT LDL MEASUREMENT. Classification: Near or above optimal . 29 * SERUM LEVELS OF PSA MEASURED USING THE MARIANN [employer] ACCESS HYBRITECH IMMUNOASSAY SHOULD NOT BE INTERPRETED ABSOLUTE EVIDENCE OF THE PRESENCE OR ABSENCE OF DISEASE. THE PSA VALUE SHOULD BE USED IN CONJUNCTION WITH OTHER PERTINENT CLINICAL DIAGNOSTIC PROCEDURES. Procedures Date CPT Code Description Status 07/12/2017 Colonoscopy Completed 10/01/2014 66661 Rad Exam; Knee Comp Completed 11/25/2013 48890 Xray Knee 3 Views Completed 10/10/2012 43064 Repair Immediate Wound 2.6-7.5CM Completed Scalp/Axillae/Trunk/Extremities 10/10/2012 51283 Excise Benign Lesion 2.1-3CM Completed Scalp/Neck/Hands/Feet/Genitalia 10/10/2012 54270 Excision Benign Lesion Incl Diameter 1.1 - 2.0 CM Completed Scalp,Neck,Hand 05/07/2012 66864 Polysomnography Sleep Staging 4+ Parameters W/Cpap Completed Encounters Type Date Location Provider CPT E/M Dx Office Visit 06/26/2017 [facility] Internal Medicine Mike Johnson, 96057 R10.84 9:00a Melva Stone M.D. Office Visit 08/29/2016 [facility] Fernando Haines 07013 L03.116 10:30a Infectious Diseases Dave Vidales R60.0 Office Visit 08/25/2016 4:00p [facility] Internal Will Summers, 09367 L03.116 Medicine - [place] Trev Acosta,FACP E66.01 I10 Office Visit 08/22/2016 12:25p [facility] Assoc,pc Destini Weller, 56156 L03.116 Hospitalrashard Acosta G47.33 A41.9 Office Visit 08/21/2016 12:24p [facility] Valeri Abbott, 63464 L03.116 Assoc,pc Hospitalists S[employer]ER G47.33 A41.9 Office Visit 08/20/2016 [facility] Roberta Reinoso, 61899 L03.116 12:23p Assoc,pc [employer] Hospitalists G47.33 A41.9 Office Visit 11/19/2014 4:00p [facility] [place] [address] 844.9 [place] 278.00 715.36 278.01 V85.42 Office Visit 10/01/2014 2:20p [facility] [place] [address] 844.9 [place] 278.00 715.36 Office Visit 12/23/2013 8:30a [facility] 29159 719.46 Monique Epstein M.D. Office Visit 11/25/2013 9:45a [facility], 24433 719.46 Radiologic Technology Teacher At [facility] Office Visit 05/15/2013 9:15a [facility] Dorian Nickerson, 03647 327.23 At [facility] 278.01 Office Visit 09/26/2012 9:30a [facility] Dorian Nickerson, 74368 327.23 [facility] 278.01 706.2 Office Visit 06/20/2012 10:45a [facility] Dorian Nickerson, 52897 327.23 [facility] 278.01 Office Visit 04/10/2012 9:30a [facility] Dorian Nickerson, 88447 278.01 [facility] 327.23 478.19 Office Visit 11/15/2010 3:00p DO Not Use Radiologic Technology Teacher At [facility], [address] [facility] 278.01 571.9 457.1 Office Visit 09/20/2010 9:40a DO Not Use Radiologic Technology Teacher At [facility], 98644 682.7 [facility],FACP 453.40 Office Visit 03/17/2008 8:40a DO Not Use Radiologic Technology Teacher At [facility], 34755 278.01 [facility],FACP 571.8 401.1 Office Visit 11/14/2007 3:20p DO Not Use Radiologic Technology Teacher At [facility], 10297 V70.0 [facility],FACP 278.01 573.3 477.9 401.1 470 Plan of Care Future Appointment(s):08/01/2017 2:00 pm - Mike Johnson M.D. at [facility] Internal Medicine - Ntqmbavxc41/05/2018 - Mike Johnson M.D.R10.11 Right upper quadrant pain
[2017-08-25 09:57] LABS: ABS Basophils 0.1 10^3/ul (0-0.2); ABS Eosinophils 0.1 10^3/ul (0-0.6); ABS Lymphocytes 0.5 10^3/ul (1.0-4.8); ABS Monocytes 0.2 10^3/ul (0-0.8); ABS Neutrophils 7.6 10^3/ul (1.5-7.7); ABS Nucleated RBC 0 10^3/ul; Eosinophil % 1.4 % (0-6); Hematocrit 33 % (42-52); Hemoglobin 11.3 g/dl (14.0-18.0); Lymphocyte % 6.4 % (25-47); Mean Corpuscular HGB Conc 34 g/dl (31-36); Mean Corpuscular Hemoglobin 27 pg (27-31); Mean Corpuscular Volume 80 fL (80-94); Mean Platelet Volume 7 um3 (7.4-10.4); Nucleated Red Blood Cells % 0.1; Platelet Count 337 10^3/ul (150-450); Red Blood Count 4.14 10^6/ul (4.0-5.4); Red Cell Distribution Width 16 % (10.5-15); White Blood Count 8.5 10^3/ul (3.5-10.8)
[2017-08-25 10:11] LABS: INR 1.41 (0.77-1.02)
[2017-08-25 10:12] LABS: EGFR Non-African American 128.3 (>60)
--- NOTE | 2017-08-25 10:41 | RAD ---
INDICATION: Fever. The patient began chemotherapy almost one week earlier for colon cancer. COMPARISON: Chest x-ray August 13, 2017 TECHNIQUE: Single AP portable view of the chest was obtained. FINDINGS: Image quality is compromised due to the relative inferiority of a portable chest x-ray. Again seen is a left subclavian vein Mediport with the tip terminating at the superior vena cava. The heart and mediastinum exhibit normal size and contour. The lungs are grossly clear. There is no evidence of a large pleural effusion. Visualized bones are normal for the patient's age. IMPRESSION: No radiographic evidence for acute cardiopulmonary abnormality on this portable chest x-ray.
[2017-08-25] MEDS ORDERED: Ibuprofen TAB* 800 MG PO ONE ×2 (11:02→11:05)
[2017-08-25 11:03] LABS: Urine Appearance Clear; Urine Blood Negative (Negative); Urine Color Amber; Urine Ketones Negative (Negative); Urine Protein 1+(30 mg/dL) (Negative); Urine Specific Gravity 1.019 (1.010-1.030); Urine Urobilinogen Positive (Negative)
[2017-08-25 11:33] VITALS: BP 122/87
--- NOTE | 2017-08-25 18:14 | ED ---
Santiago Mcclendon Nikita, scribed for Mike Paez MD on 08/25/17 at 0855 . HPI Febrile Illness - HPI Summary HPI Summary: This patient is a 51 year old M presenting to ED with a chief complaint of fever and chills since 629. The CC is described as intermittent since yesterday after work. The patient rates the pain 0/10 in severity. Symptoms aggravated by nothing. Symptoms alleviated by nothing. Patient denies cough, diarrhea, dysuria, abdominal pain, and CP. Pt had first round of chemo for colon CA 5 days ago that ended 3 days ago. - History of Current Complaint Chief Complaint: EDFever Time Seen by Provider: 08/25/17 08:48 Hx Obtained From: Patient Onset/Duration: Started Days Ago, Still Present Timing: Intermittent Current Severity: None Pain Intensity: 0 Pain Scale Used: 0-10 Numeric Aggravating Factors: Nothing Alleviating Factors: Nothing Associated Signs and Symptoms: Other: - Patient denies cough, diarrhea, dysuria , abdominal pain, and CP. - Additional Pertinent History Primary Care Physician: [id number] - Allergy/Home Medications Allergies/Adverse Reactions: Allergies Allergy/AdvReac Type Severity Reaction Status Date / Time MS Penicillins [Penicillins] Allergy Unknown See Comment Verified 08/25/17 08:35 PMH/Surg Hx/FS Hx/Imm Hx Endocrine/Hematology History: Denies: Hx Diabetes, Hx Thyroid Disease Cardiovascular History: Denies: Hx Hypertension Respiratory History: Reports: Hx Sleep Apnea Denies: Hx Asthma, Hx Chronic Obstructive Pulmonary Disease (COPD) GI History: Reports: Hx Jaundice - resolved, Other GI Disorders - pt states "fatty liver" Denies: Hx Ulcer History: Denies: Hx Renal Disease Sensory History: Reports: Hx Contacts or Glasses - glasses Denies: Hx Hearing Aid Opthamlomology History: Reports: Hx Contacts or Glasses - glasses - Cancer History Cancer Type, Location and Year: colon 07/17/17 Hx Chemotherapy: No - after powerport placed - Surgical History Surgery Procedure, Year, and Place: 1984 - Right shoulder surgery - torn bone cap. tonsillectomy and adenoidectomy as a child. stent placed in liver for jaundiced 07/21/17 [facility] Hx Anesthesia Reactions: No - Immunization History Immunizations Up to Date: Yes Infectious Disease History: No Infectious Disease History: Denies: Hx Clostridium Difficile, Hx Hepatitis, Hx Human Immunodeficiency Virus (HIV), Hx of Known/Suspected MRSA, Hx Shingles, Hx Tuberculosis, Hx Known/ Suspected VRE, Hx Known/Suspected VRSA, History Other Infectious Disease, Traveled Outside the [place] in Last 30 Days - Family History Known Family History: Positive: Diabetes Negative: Cardiac Disease, Hypertension - Social History Alcohol Use: Rare Substance Use Type: Reports: None Smoking Status (MU): Never Smoked Tobacco Review of Systems Positive: Fever, Chills Negative: Chest Pain Negative: Cough Negative: Abdominal Pain, Diarrhea Negative: dysuria All Other Systems Reviewed And Are Negative: Yes Physical Exam - Summary Physical Exam Summary: VITAL SIGNS: Reviewed. GENERAL: ~Patient is a well-developed and nourished MALE who is lying comfortable in the stretcher. ~Patient is not in any acute respiratory distress. HEAD AND FACE: No signs of trauma. ~No ecchymosis, hematomas or skull depressions. No sinus tenderness. EYES: PERRLA, EOMI x 2, No injected conjunctiva, no nystagmus. EARS: Hearing grossly intact. Ear canals and tympanic membranes are within normal limits. MOUTH: Oropharynx within normal limits. NECK: Supple, trachea is midline, no adenopathy, no JVD, no carotid bruit, no c- spine tenderness, neck with full ROM. CHEST: Symmetric, no tenderness at palpation LUNGS: Clear to auscultation bilaterally. No wheezing or crackles. CVS: Regular rate and rhythm, S1 and S2 present, no murmurs or gallops appreciated. ABDOMEN: Soft, non-tender. No signs of distention. No rebound no guarding, and no masses palpated. Bowel sounds are normal. EXTREMITIES: FROM in all major joints, no edema, no cyanosis or clubbing. NEURO: Alert and oriented x 3. No acute neurological deficits. Speech is normal and follows commands. SKIN: Dry and warm Triage Information Reviewed: Yes Vital Signs On Initial Exam: Initial Vitals Temp Pulse Resp BP Pulse Ox 99.3 F 131 19 112/69 100 08/25/17 08:30 08/25/17 08:30 08/25/17 08:30 08/25/17 08:30 08/25/17 08:30 Vital Signs Reviewed: Yes Diagnostics - Vital Signs Vital Signs Temp Pulse Resp BP Pulse Ox 08/25/17 08:30 99.3 F 131 19 112/69 100 - Laboratory Lab Results: Lab Results 08/25/17 08/25/17 08/25/17 Range/Units 09:47 09:47 09:47 WBC 8.5 (3.5-10.8) 10^3/ul RBC 4.14 (4.0-5.4) 10^6/ul Hgb 11.3 L (14.0-18.0) g/dl Hct 33 L (42-52) % MCV 80 (80-94) fL MCH 27 (27-31) pg MCHC 34 (31-36) g/dl RDW 16 H (10.5-15) % Plt Count 337 (150-450) 10^3/ul MPV 7 L (7.4-10.4) um3 Neut % (Auto) 89.6 H (38-83) % Lymph % (Auto) 6.4 L (25-47) % [place] % (Auto) 2.0 (1-9) % Eos % (Auto) 1.4 (0-6) % Baso % (Auto) 0.6 (0-2) % Absolute Neuts (auto) 7.6 (1.5-7.7) 10^3/ul Absolute Lymphs (auto) 0.5 L (1.0-4.8) 10^3/ul Absolute Monos (auto) 0.2 (0-0.8) 10^3/ul Absolute Eos (auto) 0.1 (0-0.6) 10^3/ul Absolute Basos (auto) 0.1 (0-0.2) 10^3/ul Absolute Nucleated RBC 0 10^3/ul Nucleated RBC % 0.1 ESR 110 H (0-14) mm/Hr INR (Anticoag Therapy) 1.41 H (0.77-1.02) APTT 33.7 (26.0-36.3) seconds Sodium 133 (133-145) mmol/L Potassium 3.8 (3.5-5.0) mmol/L Chloride 100 L (101-111) mmol/L Carbon Dioxide 27 (22-32) mmol/L Anion Gap 6 (2-11) mmol/L BUN 11 (6-24) mg/dL Creatinine 0.66 L (0.67-1.17) mg/dL Est GFR ( Amer) 165.0 (>60) Est GFR (Non-Af Amer) 128.3 (>60) BUN/Creatinine Ratio 16.7 (8-20) Glucose 130 H (70-100) mg/dL Lactic Acid (0.5-2.0) mmol/L Calcium 9.0 (8.6-10.3) mg/dL Total Bilirubin 2.50 H (0.2-1.0) mg/dL AST 41 H (13-39) U/L ALT 51 (7-52) U/L Alkaline Phosphatase 238 H (34-104) U/L Total Creatine Kinase 26 (10-223) U/L Troponin I 0.01 (<0.04) ng/mL C-Reactive Protein 93.85 H (< 5.00) mg/L Total Protein 7.0 (6.4-8.9) g/dL Albumin 3.1 L (3.2-5.2) g/dL Globulin 3.9 (2-4) g/dL Albumin/Globulin Ratio 0.8 L (1-3) Urine Color Urine Appearance Urine pH (5-9) Ur Specific Reasnor (1.010-1.030) Urine Protein (Negative) Urine Ketones (Negative) Urine Blood (Negative) Urine Nitrate (Negative) Urine Bilirubin (Negative) Urine Urobilinogen (Negative) Ur Leukocyte Esterase (Negative) Urine WBC (Auto) (Absent) Urine RBC (Auto) (Absent) Urine Bacteria (Absent) Urine Glucose (Negative) Influenza A (Rapid) (Negative) Influenza B (Rapid) (Negative) 08/25/17 08/25/17 08/25/17 Range/Units 09:47 10:38 11:00 WBC (3.5-10.8) 10^3/ul RBC (4.0-5.4) 10^6/ul Hgb (14.0-18.0) g/dl Hct (42-52) % MCV (80-94) fL MCH (27-31) pg MCHC (31-36) g/dl RDW (10.5-15) % Plt Count (150-450) 10^3/ul MPV (7.4-10.4) um3 Neut % (Auto) (38-83) % Lymph % (Auto) (25-47) % [place] % (Auto) (1-9) % Eos % (Auto) (0-6) % Baso % (Auto) (0-2) % Absolute Neuts (auto) (1.5-7.7) 10^3/ul Absolute Lymphs (auto) (1.0-4.8) 10^3/ul Absolute Monos (auto) (0-0.8) 10^3/ul Absolute Eos (auto) (0-0.6) 10^3/ul Absolute Basos (auto) (0-0.2) 10^3/ul Absolute Nucleated RBC 10^3/ul Nucleated RBC % ESR (0-14) mm/Hr INR (Anticoag Therapy) (0.77-1.02) APTT (26.0-36.3) seconds Sodium (133-145) mmol/L Potassium (3.5-5.0) mmol/L Chloride (101-111) mmol/L Carbon Dioxide (22-32) mmol/L Anion Gap (2-11) mmol/L BUN (6-24) mg/dL Creatinine (0.67-1.17) mg/dL Est GFR ( Amer) (>60) Est GFR (Non-Af Amer) (>60) BUN/Creatinine Ratio (8-20) Glucose (70-100) mg/dL Lactic Acid 1.9 (0.5-2.0) mmol/L Calcium (8.6-10.3) mg/dL Total Bilirubin (0.2-1.0) mg/dL AST (13-39) U/L ALT (7-52) U/L Alkaline Phosphatase (34-104) U/L Total Creatine Kinase (10-223) U/L Troponin I (<0.04) ng/mL C-Reactive Protein (< 5.00) mg/L Total Protein (6.4-8.9) g/dL Albumin (3.2-5.2) g/dL Globulin (2-4) g/dL Albumin/Globulin Ratio (1-3) Urine Color Rekha Urine Appearance Clear Urine pH 6.0 (5-9) Ur Specific Re[place]nor 1.019 (1.010-1.030) Urine Protein 1+(30 mg/dl) H (Negative) Urine Ketones Negative (Negative) Urine Blood Negative (Negative) Urine Nitrate Negative (Negative) Urine Bilirubin 1+ (Negative) Urine Urobilinogen Positive H (Negative) Ur Leukocyte Esterase Negative (Negative) Urine WBC (Auto) Trace(0-5/hpf) (Absent) Urine RBC (Auto) Trace(0-2/hpf) (Absent) Urine Bacteria Absent (Absent) Urine Glucose Negative (Negative) Influenza A (Rapid) Negative (Negative) Influenza B (Rapid) Negative (Negative) Result Diagrams: 08/25/17 09:47 08/25/17 09:47 Lab Statement: Any lab studies that have been ordered have been reviewed, and results considered in the medical decision making process. - Radiology CXR Radiology Interpretation Completed By: Radiologist - Pending official interpretation from radiologist. See [employer]. Course/Dx - Course Assessment/Plan: This patient is a 51 year old M presenting to ED with a chief complaint of fever and chills since 629. Blood work is without significant abnormalities except slight chronic anemia, glucose of 130, CRP of 93.85. Urinalysis is negative for UTI. Influenza A and B is negative. Patient declined IV fluids and only wanted Ibuprofen and PO fluids. At this point, Dr. Acosta came and saw the pt. After assessment he said to D/C the patient home with instructions to f/u at his office. The pt was instructed to take Tylenol if he develops fever and if sx get worse, or if he develops dizziness, cough, or dysuria, to return the the ED for further workup analysis. The pt is hemodynamically stable, alert and oriented x3. I discussed all the findings and test results with the patient. Patient was instructed to return to the emergency room immediately if any of the symptoms return or worsens. Plan of care was discussed with the patient and understands and agrees. All questions were answered at patient satisfaction. There were no further complaints or concerns. Lung exam before discharge: CTA B/L. Good air exchange. No wheezing or crackles heard. CVS: S1 and S2 present. No murmurs appreciated. Patient is alert and oriented x 3. Patient is hemodynamically stable. Patient will be discharged home with follow up PCP in the next 2-3 days - Febrile Illness Differential Diagnoses: Bacteremia, Fever of Unknown Origin, Pneumonia, Other: - FEVER - Diagnoses Provider Diagnoses: Fever - Provider Notifications Discussed Care Of Patient With: Mina Acosta Time Discussed With Above Provider: 10:35 Instructed by Provider To: Other - Consulted Dr. Acosta who reports the flu swab was negative. Discharge - Discharge Plan Condition: Stable Disposition: HOME Patient Education Materials: Fever in Adults (ED) Referrals: Mina Acosta MD [Primary Care Provider] - 3 Days Additional Instructions: RETURN TO THE ED FOR ANY NEW OR WORSENING SYMPTOMS. The documentation as recorded by the Santiago saha Nikita accurately reflects the service I personally performed and the decisions made by , Mike Paez MD.
--- NOTE | 2017-08-27 09:14 | PN ---
Progress Note - Progress Note Date of Service: 08/27/17 Note: Patient blood cultures grew Klebsiella oxytoca. the patient is dr Acosta's patient. Spoke with dr Acosta and made aware in order that treatment can be initiated as according to Dr Paez, Dr Acosta saw and discharged the patient in the ED.
--- NOTE | 2017-08-28 09:04 | PN ---
Progress Note - Progress Note Date of Service: 08/25/17 Note: patient already seeing Dr Acosta. Dr Acosta already informed about patients blood culture results. will fax over final culture susceptibility results to Dr Acosta for comprehensive care.
== END 2017-08-25 11:34 | disposition home or self-care (01) ==
LOC: ED 08:28
DX: R50.9 Fever, unspecified (principal); C18.9 Malignant neoplasm of colon, unspecified
CPT/HCPCS: 36415; 71045; 80053; 81003; 81015; 82550; 83605; 84484; 85025; 85610; 85652; 85730; 86140; 87040; 87077; 87186; 87205; 87502; 99282; A9270-GY

== ENCOUNTER 2017-09-07 09:11 | Inpatient (IN) | payer OTHER ==
[2017-09-07] MEDS ORDERED: Piperacillin/Tazobac ADVAN(*) 3.375 GM in NS 0.9% 100 ML* 100 ML IVPB ONE (09:45)
[2017-09-07] MEDS ORDERED: Acetaminophen TAB* 325 MG PO PRN (09:45)
[2017-09-07] MEDS ORDERED: Ibuprofen TAB* 600 MG PO PRN (09:49)
[2017-09-07] MEDS ORDERED: Ondansetron TAB* 4 MG PO PRN (09:49)
[2017-09-07] MEDS ORDERED: Prochlorperazine TAB* 10 MG PO PRN (09:49)
[2017-09-07] MEDS ORDERED: Zosyn per Pharmacy* NOTE FOLLOW UP SCH (10:00)
--- OUTSIDE RECORDS SUMMARY | 2017-09-07 12:09 | XMS REPORT ---
:1965 External Reference #:[id number] Author Organization [facility] [employer] Address [address] [address] Phone [phone] Care Team Providers Name Role Phone Will Summers MD Primary Care Physician Unavailable Payers Type Date Identification Numbers Payment Provider Subscriber Commercial Effective: Policy Number: Aetna-CPHL Kaylee Lindquist 2011 [id number] Group Number: [id number] [address] PayID: [id number] [place] [address] Medigap Part B Expires: 2011 Policy Number: A[employer]na Insurance Kaylee Lindquist [id number] Group Number: [id number] [address] PayID: [id number] [place] [address] Problems Date Description Provider Status Onset: 07/13/2017 [...] Lives With Spouse Occupation Currently Working at [employer] Cigarette Use Never Smoked Cigarettes Cigars 08/25/2016 [...] Form Strength Qnty SIG Indications Ordering Provider Levofloxacin 09/03 Active Tablets 500mg 30tab 1 by mouth Z86.19 s every day Yancy Vidales M.D. Ibuprofen 08/22 Active Tablets 600mg 30tab 1 by mouth s Q 8 hrs as Ordering needed Provider Compression 12/07 Active Use [employer] bilaterall Addison Steele y as MD needed. Bi-Pap 06/20 Active 1unit ipap s epap 12 Glendy with ab hughes M.D. supplies Prochlorperazine Active Tablets 10mg Take 1 Unknown Maleate /0000 Tablet By Mouth Every 6 Hours as Needed Ondansetron HCL Active Tablets 4mg Take 1 Unknown Tablet By Mouth Every 4 Hours as Needed Levaquin Active Tablets 500mg 1 by mouth Unknown /0000 every day Clindamycin HCL 08/29 Hx Capsules 300mg 30cap 1 tabs by L03.116 s mouth 3 D. - times a [place], 06/25 day; take M.D. for return of chills, fevers, leg swelling, redness Cephalexin 08/22 Hx Capsules 500mg 40cap 1 by mouth s 4 times a Ordering - day x 10 Provider Cephalexin 09/20 Hx Capsules 500mg 28cap qid po 682.7 Will Melva Almanzar M.D.,[facility] 11/15 Ibuprofen 09/20 Hx Tablets 600mg 60tab tid prn 682.7 Will Melva Almanzar M.D.,[facility] 10/01 Nasonex 11/13 Hx Suspension 50mcg/Act 1Mon 2 spray 477.9 kary each Yancy Summers, - side qd M.DHarley,[facility] 11/24 Claritin Hx Tablets 10mg 30tab PO qd prn Unknown s - 11/24 Flonase Hx Suspension 1Bott 1 Unknown le Intranasal - puff To 03/17 Nostril Daily Cefepime HCL Hx Solution Unknown / Rec - 08/31 Immunizations CPT Code Status Date Vaccine Lot # [id number] Refused 06/11/2009 Influenza Virus Vaccine, Pandemic Formulation Vital Signs Date Vital Result Comment 09/03/2017 Height 73 inches 6'1" Weight 310.50 lb Heart Rate 84 /min BP Systolic Sitting 138 mmHg BP Diastolic Sitting 88 mmHg Respiratory Rate 14 /min Body Temperature 97.8 F BMI (Body Mass Index) 41.0 kg/m2 08/03/2017 Height 73 inches 6'1" Weight 319.00 lb Heart Rate 76 /min BP Systolic 130 mmHg BP Diastolic 86 mmHg Respiratory Rate 16 /min Body Temperature 98.3 F BMI (Body Mass Index) 42.1 kg/m2 07/27/2017 Weight 327.00 lb Heart Rate 103 [...] Test Date Test Result H/L Range Note Laboratory test 08/30/2017 Blood Culture SEE RESULT BELOW 1, 2 finding CBC Auto Diff 08/02/2017 White Blood Count 9.4 10^3/uL 3.5-10.8 Red Blood Count 3.87 10^6/uL Low 4.0-5.4 Hemoglobin 11.1 g/dL Low 14.0-18.0 Hematocrit 32 % Low 42-52 Mean Corpuscular Volume 84 fL 80-94 Mean Corpuscular Hemoglobin 29 pg 27-31 Mean Corpuscular HGB Conc 34 g/dL 31-36 Red Cell Distribution Width 18 % High 10.5-15 Platelet Count 472 10^3/uL High 150-450 Mean Platelet Volume 8 um3 7.4-10.4 Abs Neutrophils 6.5 10^3/uL 1.5-7.7 Abs Lymphocytes 1.8 10^3/uL 1.0-4.8 Abs Monocytes 0.8 10^3/uL 0-0.8 Abs Eosinophils 0.3 10^3/uL 0-0.6 Abs Basophils 0 10^3/uL 0-0.2 Abs Nucleated RBC 0 10^3/uL Granulocyte % 69.2 % 38-83 Lymphocyte % 18.6 % Low 25-47 Monocyte % 8.2 % 1-9 Eosinophil % 3.5 % 0-6 Basophil % 0.5 % 0-2 Nucleated Red Blood Cells % 0 Comp Metabolic Panel 08/02/2017 Sodium 136 mmol/L 133-145 Potassium 4.1 mmol/L 3.5-5.0 Chloride 99 mmol/L Low 101-111 Co2 Carbon Dioxide 28 mmol/L 22-32 Anion Gap 9 mmol/L 2-11 Glucose 108 mg/dL High 70-100 Blood Urea Nitrogen 13 mg/dL 6-24 Creatinine 0.66 mg/dL Low 0.67-1.17 BUN/Creatinine Ratio 19.7 8-20 Calcium 8.9 mg/dL 8.6-10.3 Total Protein 6.8 g/dL 6.4-8.9 Albumin 3.1 g/dL Low 3.2-5.2 Globulin 3.7 g/dL 2-4 Albumin/Globulin Ratio 0.8 Low 1-3 Total Bilirubin 7.50 mg/dL High 0.2-1.0 Alkaline Phosphatase 306 U/L High 34-104 Alt 66 U/L High 7-52 Ast 71 U/L High 13-39 Egfr Non- 128.3 >60 Egfr 165.0 >60 3 Iron & Iron Binding Capacity 08/02/2017 Iron 34 g/dL Low 50-212 Unsaturated Iron Binding 281 g/dL Total Iron Binding Capacity 315 g/dL 250-450 % Iron Saturation 11 % Low 15-55 Laboratory test finding 08/02/2017 Ferritin 189.3 ng/mL 24-336 Carcinoembryonic Antigen Cea 1216.2 ng/mL High 0.1-5.0 4 CBC Auto Diff 07/27/2017 White Blood Count 9.2 10^3/uL 3.5-10.8 Red Blood Count 4.55 10^6/uL 4.0-5.4 Hemoglobin 12.8 g/dL Low 14.0-18.0 Hematocrit 38 % Low 42-52 Mean Corpuscular Volume 84 fL 80-94 Mean Corpuscular Hemoglobin 28 pg 27-31 Mean Corpuscular HGB Conc 34 g/dL 31-36 Red Cell Distribution Width 20 % High 10.5-15 Platelet Count 535 10^3/uL High 150-450 Mean Platelet Volume 8 um3 7.4-10.4 Abs Neutrophils 6.3 10^3/uL 1.5-7.7 Abs Lymphocytes 1.7 10^3/uL 1.0-4.8 Abs Monocytes 0.6 10^3/uL 0-0.8 Abs Eosinophils 0.5 10^3/uL 0-0.6 Abs Basophils 0.1 10^3/uL 0-0.2 Abs Nucleated RBC 0 10^3/uL Granulocyte % 68.6 % 38-83 Lymphocyte % 18.1 % Low 25-47 Monocyte % 7.0 % 1-9 Eosinophil % 5.6 % 0-6 Basophil % 0.7 % 0-2 Nucleated Red Blood Cells % 0 Comp Metabolic Panel 07/27/2017 Sodium 136 mmol/L 133-145 Potassium 4.1 mmol/L 3.5-5.0 Chloride 100 mmol/L Low 101-111 Co2 Carbon Dioxide 30 mmol/L 22-32 Anion Gap 6 mmol/L 2-11 Glucose 96 mg/dL 70-100 Blood Urea Nitrogen 10 mg/dL 6-24 Creatinine 0.65 mg/dL Low 0.67-1.17 BUN/Creatinine Ratio 15.4 8-20 Calcium 9.1 mg/dL 8.6-10.3 Total Protein 7.3 g/dL 6.4-8.9 Albumin 3.3 g/dL 3.2-5.2 Globulin 4.0 g/dL 2-4 Albumin/Globulin Ratio 0.8 Low 1-3 Total Bilirubin 11.40 mg/dL High 0.2-1.0 Alkaline Phosphatase 401 U/L High 34-104 Alt 90 U/L High 7-52 Ast 99 U/L High 13-39 Egfr Non- 130.6 >60 Egfr 167.9 >60 5 Manual Differential 07/17/2017 Neutrophil % 78 % [...] Reactive Protein 53.66 mg/L High < 5.00 6 Comp Metabolic Panel 07/17/2017 Sodium 136 mmol/L [...] Egfr Non- 114.2 >60 Egfr 146.9 >60 7 Total Bilirubin 17.50 mg/dL High 0.2-1.0 8 Laboratory test finding 07/17/2017 Lactic Acid 0.9 mmol/L 0.5-2.0 9 Comp Metabolic Panel 07/12/2017 Sodium 134 mmol/L [...] Egfr Non- 119.9 >60 Egfr 154.2 >60 10 Total Bilirubin 14.90 mg/dL High 0.2-1.0 11 CBC Auto Diff 07/12/2017 White Blood Count [...] Carcinoembryonic Antigen 665.5 ng/mL High 0.1- 5.0 12 finding Cea Laboratory test 07/12/2017 Surgical Pathology SEE RESULT 13 finding BELOW Occult Blood,Stool 07/09/2017 Occult Blood - Stool [...] Egfr Non- 128.3 >60 Egfr 165.0 >60 14 Laboratory test finding 06/26/2017 C Reactive Protein 55.82 mg/L High &lt ; 5.00 15 Erythrocyte Sed Rate 83 mm/Hr High 0-14 [...] Egfr Non- 65.9 >60 Egfr 84.7 >60 16 Laboratory test finding 08/20/2016 C Reactive Protein 188.50 mg/L High &lt ; 5.00 17 Laboratory test finding 08/20/2016 Lactic Acid 2.3 mmol/L High 0.5-2.0 18 Blood Culture SEE RESULT BELOW 19 Laboratory test finding 05/20/2015 Rapid Influenza A B SEE RESULT BELOW 20 Antigen Throat-Beta Strept SEE RESULT BELOW 21 Xray 10/01/2014 Knee Complete LT <pending> Liver Function Panel 11/15/2010 Total Protein 6.8 GM/DL 6.2-8.1 Albumin 3.7 GM/DL 3.6-5.4 Globulin 3.1 GM/DL 2-4 Albumin/Globulin Ratio 1.2 1-3 Bilirubin Total 0.9 mg/dL 0.4-1.5 22 Bilirubin Direct 0.1 mg/dL 0.1-0.5 Indirect Bilirubin 0.8 mg/dL 0.3-1.0 23 Alkaline Phosphatase 43 U/L 39-117 Alt (SGPT) 45 U/L 17-63 Ast (Sgot) 33 U/L 12-42 Laboratory test finding 11/15/2010 TSH 2.56 MIU/ML 0.34-5.60 Lipid Profile (Trig/Chol/HDL) 11/14/2010 Triglyceride 153 mg/dL 40-200 Cholesterol 164 mg/dL Less Than 200 24 High Density Lipoprotein 38 mg/dL Low 40-60 25 Cholesterol/HDL Ratio 4.32 AVERAGE 1-4.97 Low Density Lipoprotein 95 mg/dL Less Than 100 26 Laboratory test finding 11/14/2010 Glucose 97 mg/dL [...] Quantitative 472 NG/ML High Less Than 230 27 Urine Culture & 09/12/2010 Urine Culture Sensitivi NG 28 Sensitivi Laboratory test finding 03/02/2008 Ferritin 192 [...] Metabolic Panel 09/05/2007 One Over Creatinine 1.00 29 Anion Gap 5.0 mmol/L 2-11 29, 30 BUN 14 mg/dL 6-24 29 Calcium 9.2 mg/dL 8.7-10.2 29 Chloride 104 mmol/L 101-111 29 Co2 (Carbon Dioxide) 30.0 mmol/L 22-32 29 Glucose 90 mg/dL 70-105 29 Potassium 4.1 mmol/L 3.5-5.0 29 Sodium 139 mmol/L 135-145 29 BUN/Creatinine Ratio 14.0 8-20 29 Creatinine 1.0 mg/dL 0.5-1.4 29 Lipid Profile 09/05/2007 Cholesterol/HDL Ratio 4.38 AVERAGE 1-4.97 29 (Trig/Chol/HDL) Cholesterol 171 mg/dL Less Than 200 29, 31 Triglyceride 158 mg/dL 40-200 29 High Density Lipoprotein 39 mg/dL Low 40-60 29, 32 Low Density Lipoprotein 100 mg/dL Less Than 100 29, 33 Laboratory test finding 09/05/2007 PSA Screening 1.45 NG/ML 0-4 29, 34 1 Patient is On Antibiotics? YES Comment: 1 from [facility], 1 from peripheral Reason for Exam: bacteri 2 SEE RESULT BELOW Name: RACHID LINDQUIST : [address]: Mina Acosta MD Acct: [id number] Unit: [id number] AGE: 51 Location: INF Re08/29/17 SEX: M Status: REG REF SPEC: [id number] TARIQ: 08/30/17 [facility] DR: Mina Acosta MD REQ: [id number] RECD: 08/30/17 STATUS: RES [facility] DR: Mike Johnson III, MD _ SOURCE: BLOOD,VENO SPDESC: ORDERED: Blood Cult COMMENTS: Patient is On Antibiotics? YES Comment: 1 from [facility], 1 from peripheral Reason for Exam: bacterial infection Procedure Result Reported Site Aerobic Culture Bottle Preliminary 09/03/17- 1158 ML No Growth Day 4 Anaerobic Culture Bottle Preliminary 09/03/17- 1158 ML No Growth Day 4 * ML - [facility] ([facility]) . END OF REPORT * ML=Testing performed at Main Lab DEPARTMENT OF PATHOLOGY, [address] [place] [address] Malik Bingham M.D. Director [facility] # [id number] 3 Because ethnic data is not always readily [...] 15-29 5 Kidney failure <15 (or dialysis) 4 Nonsmokers: < 2.9 ng/mL Some smokers may have elevated CEA, usually <5.0 ng/mL. Serum markers are not specific for malignancy, and values may vary by method. The testing method is an immunoenzymatic assay fiberglass bonding machine tender by [employer] performed on [employer] [place] DXI 600. Do not interpret serum CEA levels as absolute evidence of the presence or the absence of malignant disease. Use serum CEA in conjunction with information from the clinical evaluation of the patient and other diagnostic procedures. 5 Because ethnic data is not always [...] 5 Kidney failure <15 (or dialysis) 6 Acute inflammation: >10.00 7 Because ethnic data is not always readily [...] 15-29 5 Kidney failure <15 (or dialysis) 8 Critical Result TBIL:17.50 Called to KINGS at: 14:58:09 by:[id number] Read back by:KINGS 9 [place] Severe Sepsis and Septic Shock Management Bundle Measure requires all lactic acids initially measuring >2.0 mmol/L be repeated. 10 Because ethnic data is not always readily [...] 15-29 5 Kidney failure <15 (or dialysis) 11 Critical Result TBIL:14.90 Called to BERNNAN HUTCHINS at: 16:25:04 by:[id number] Read back by:BRENNAN HUTCHINS 12 Nonsmokers: < 2.9 ng/mL Some smokers may have elevated CEA, usually <5.0 ng/mL. Serum markers are not specific for malignancy, and values may vary by method. The testing method is an immunoenzymatic assay fib[employer]lass bonding machine tender by [employer] performed on [employer] DXI 600. Do not interpret serum CEA levels as absolute evidence of the presence or the absence of malignant disease. Use serum CEA in conjunction with information from the clinical evaluation of the patient and other diagnostic procedures. 13 SEE RESULT BELOW Name: RACHID LINDQUIST : [address]: Thomas Judge MD Acct: [id number] Unit: [id number] AGE: 51 Location: ENDO Re07/12/17 SEX: M Status: REG REF SPEC: [id number] TARIQ: 07/12/17- SUBM DR: Thomas Judge MD REQ: [id number] RECD: 07/12/17 STATUS: BETTYE GOODSON DR: Will Johnson III, MD _ ORDERED: LEVEL 4/2, IMMUNO-FIRST, IMMUNO-ADDL/3 ALEJANDRO/ALEX panel has been performed at [facility], [place], [place]. The testing reveals: Test Result Flag Unit Ref Value ALEJANDRO/ALEX Panel, Tumor Result Summary See Comment RESULT: ALTERATIONS IDENTIFIED Result See Comment Provided diagnosis: Colorectal adenocarcinoma The following alterations were identified: Gene: KRAS DNA change: c.35G>A Amino Acid change: p.G12D ([id number]) Classification: MUTATION Gene: KRAS DNA change: c.38G>A Amino Acid change: p.G13D ([id number]) Classification: MUTATION No additional reportable somatic alterations were identified within the tested genes including BRAF, KRAS, HRAS, and NRAS (i.e. specimen is BRAF, HRAS, and NRAS wild-type). Interpretation See Comment ASSOCIATIONS BETWEEN KRAS MUTATIONS AND COLORECTAL CANCER Approximately 35% of patients with colorectal adenocarcinoma have a somatic mutation in the KRAS gene (1). KRAS mutations, primarily those occurring at codons 12, 13, and 61, result in constitutive activation of the ALEJANDRO/MAPK signaling pathway. Current data suggest that the efficacy of EGFR-targeted therapies in colorectal cancer is limited to patients with tumors lacking KRAS mutations. Thus, the detection of a KRAS activating mutation within this tumor suggests that EGFR-targeted therapies may have limited therapeutic value for this patient ( 2-3). Of note, the two KRAS alterations detected in this specimen were in trans (on different chromosomes). REFERENCES 1. cancer.[email or web address].[email or web address]/cancergenome/projects/cosmic/ CONTINUED ON NEXT PAGE * ML=Testing performed at Main Lab DEPARTMENT OF PATHOLOGY, [address] [place] [address] Malik Bingham M.D. Director [facility] # [id number] RUN DATE: 08/31/17 [facility] LAB LIVE PAGE 2 Patient: RACHID LINDQUIST [id number] (Continued) ADDENDUM (Continued) 2. Yolande Oncol. 2013 Feb;24(8):2062-7 (PMID [id number]) 3. N Engl J Med. 2013 Apr 03;369(11):1023-34 (PMID [id number]) Specimen Tissue, Tumor Tissue ID [id number] RESULT: Haleigh Sanchez M.D. 5-1136 Test Performed by: [address] [address] Addendum Signed (signature on file) Ina Oseguera MD 04/09 1125 Immunohistochemistry, with appropriately reacting controls, was performed [...] reviewed this case in intradepartmental consultation and CONTINUED ON NEXT PAGE * ML=Testing performed at Main Lab DEPARTMENT OF PATHOLOGY, [address] [place] [address] Malik Bingham M.D. Director [facility] # [id number] RUN DATE: 08/31/17 [facility] LAB LIVE PAGE 3 Patient: RACHID LINDQUIST [id number] (Continued) SPECIMEN COMMENTS (Continued) agrees with the diagnosis. CLINICAL HISTORY CT scan from 07/11/17 confirms the apple-core lesion in the sigmoid colon. Patient appears to have lymphadenopathy and potentially metastasis to his lungs and liver POST-OPERATIVE DIAGNOSIS Colonoscopy to transverse ? at [...] performed at Main Lab DEPARTMENT OF PATHOLOGY, [address] [place] [address] Malik Bingham M.D. Director [facility] # [id number] 14 Because ethnic data is not always readily [...] 15-29 5 Kidney failure <15 (or dialysis) 15 Acute inflammation: >10.00 16 Because ethnic data is not always readily [...] 15-29 5 Kidney failure <15 (or dialysis) 17 Acute inflammation: >10.00 18 Critical Result LACT:2.3 Called to [id number] at: 16:44:21 by:[id number] Read back by:[id number] [facility] Severe Sepsis and Septic Shock Management Bundle Measure requires all lactic acids initially measuring >2.0 mmol/L be repeated. 19 SEE RESULT BELOW Name: RACHID LINDQUIST : [address]: Destini Kat MD Acct: [id number] Unit: [id number] AGE: 50 Location: [place] [address] Re08/20/16 Dis: 08/22/16 SEX: M Status: DIS IN SPEC: [id number] TARIQ: 08/20/16 [facility] [address]: Oswaldo King MD REQ: [id number] RECD: 08/20/16 STATUS: FELIX GOODSON DR: Will Summers MD _ SOURCE: BLOOD,VENO SPDES: ORDERED: Blood Cult Procedure Result Reported Site Aerobic Culture Bottle Final 08/25/16- 1622 ML No Growth Day 5 Anaerobic Culture Bottle Final 08/25/16- 1622 ML No Growth Day 5 * ML - MAIN LAB ([facility]) . END OF REPORT * ML=Testing performed at Main Lab DEPARTMENT OF PATHOLOGY, [address] [place] [address] Malik Bingham M.D. Director [facility] # [id number] 20 SEE RESULT BELOW Name: RACHID LINDQUIST : [address]: Reba Jacobs MD Acct: [id number] Unit: [id number] AGE: 49 Location: [facility] Re05/20/15 SEX: M Status: DEP ER SPEC: [id number] TARIQ: 05/20/[address]: Reba Jacobs MD REQ: [id number] RECD: 05/20/15 STATUS: FELIX GOODSON DR: Will Summers MD _ S[facility]: ORDERED: Rapid Flu A B [...] is desired. * ML - MAIN LAB ([facility]) . END OF REPORT * ML=Testing performed at Main Lab DEPARTMENT OF PATHOLOGY, [address] [place] [address] Malik Bingham M.D. Director [facility] # [id number] 21 SEE RESULT BELOW Name: RACHID LINDQUIST : [address]: Reba Jacobs MD Acct: [id number] Unit: [id number] AGE: 49 Location: [facility] Re05/20/15 SEX: M Status: DEP ER SPEC: [id number] TARIQ: 05/20/[address] [facility] [address]: Reba Jacobs MD REQ: [id number] RECD: 05/20/15 STATUS: FELIX GOODSON DR: Will Summers MD _ SOURCE: THROAT SPDESC: ORDERED: Throat Beta Str Procedure Result Verified Site Throat Beta Strep Culture Final 05/22/15- 0914 ML Negative For Group A Beta Streptococcus * ML - MAIN LAB ([facility]) . END OF REPORT * ML=Testing performed at Main Lab DEPARTMENT OF PATHOLOGY, [address] [place] [address] Malik Bingham M.D. Director [facility] # [id number] 22 A metabolite of Naproxen, O-desmethylnaproxen, has been shown to interfere with the Jendrluchoik-Martha method for measuring total bilirubin. Samples from patients who have taken Naproxen have shown spurious elevation in total bilirubin levels. 23 Please note updated reference range, effective 02/10/10 24 CHOLESTEROL INTERPRETATION: Desirable: Less than 200 MG/DL Borderline-High Risk: 200-239 MG/DL High-Risk: 240 MG/DL and over 25 HDL INTERPRETATION: Undesirable: High Risk: Less than 40 MG/DL Desirable: Low Risk: Greater than 60 MG/DL 26 LDL INTERPRETATION: Low Risk Optimal Level: LDL Less than 100 MG/DL Near or Above Optimal: LDL 100-129 MG/DL Borderline High Risk: LDL 130-159 MG/DL High Risk: LDL 160-189 MG/DL Very High Risk: LDL Greater than 189 MG/DL 27 Please note: The following may produce a false positive D Dimer test: - Rheumatoid factor greater than 60 IU/ml - Plasma hemoglobin greater than 0.05 gm/dl - Bilirubin greater than 50 mg/dl - Lipids greater than 1000 mg/dl - FDP greater than 20 ug/ml . 28 FINAL: NO GROWTH DAY 2 (<1,000 CFU/mL) 29 FASTING 30 Anion gap measurement may be of limited value in the presence of any alkalosis, especially in a combined acid base disorder. . 31 Classification: Desirable . 32 Classification: Low . 33 CALCULATED LDL APPROXIMATES THE VALUE OF A DIRECT LDL MEASUREMENT. Classification: Near or above optimal . 34 * SERUM LEVELS OF PSA MEASURED USING THE VIDAL Moments.me ACCESS HYBRITECH IMMUNOASSAY SHOULD NOT BE INTERPRETED ABSOLUTE EVIDENCE OF THE PRESENCE OR ABSENCE OF DISEASE. THE PSA VALUE SHOULD BE USED IN CONJUNCTION WITH OTHER PERTINENT CLINICAL DIAGNOSTIC PROCEDURES. Procedures Date CPT Code Description Status 08/13/2017 19728 Fluoroscopic Guidance For Cent Completed 08/13/2017 77787 Insertion Tunneled Cent Venous Cathr W Subcut Port 5 Completed Yrs Or Oldr 07/12/2017 Colonoscopy Completed 10/01/2014 65816 Rad Exam; Knee Comp Completed 11/25/2013 15170 Xray Knee 3 Views Completed 10/10/2012 81902 Repair Immediate Wound 2.6-7.5CM Completed Scalp/Axillae/Trunk/Extremities 10/10/2012 96374 Excise Benign Lesion 2.1-3CM Completed Scalp/Neck/Hands/Feet/Genitalia 10/10/2012 50471 Excision Benign Lesion Incl Diameter 1.1 - 2.0 CM Completed Scalp,Neck,Hand 05/07/2012 52390 Polysomnography Sleep Staging 4+ Parameters W/Cpap Completed Encounters Type Date Location Provider CPT E/M Dx Office Visit 08/03/2017 [facility] Jeferson Ivy, 74881 C18.7 2:15p Of [facility] Office Visit 07/27/2017 [facility] Internal Medicine Mike Johnson, 21085 R10.11 10:00a - Chase Acosta Office Visit 06/26/2017 [facility] Internal Medicine Mike Johnson, 94407 R10.84 9:00a Melva Stone M.D. Office Visit 08/29/2016 [facility] Fernando Haines 97805 L03.116 10:30a Infectious Diseases Dave Vidales R60.0 Office Visit 08/25/2016 4:00p [facility] Internal Will Summers, 94683 L03.116 Medicine - [place] Trev Acosta,FACP E66.01 I10 Office Visit 08/22/2016 12:25p [facility] Destini Weller, 12858 L03.116 Yanet Acosta G47.33 A41.9 Office Visit 08/21/2016 12:24p [facility] Valeri Abbott, 62205 L03.116 Assoc,pc Hospitalists [employer] G47.33 A41.9 Office Visit 08/20/2016 [facility] Roberta Reinoso, 59445 L03.116 12:23p Assoc,pc [employer] Hospitalists G47.33 A41.9 Office Visit 11/19/2014 4:00p [facility] [employer] [place] [address] 844.9 [place] 278.00 715.36 278.01 V85.42 Office Visit 10/01/2014 2:20p [facility] [employer] [place] [address] 844.9 [place] 278.00 715.36 Office Visit 12/23/2013 8:30a [facility] Jasen Lai, 37404 719.46 [employer] [facility] Office Visit 11/25/2013 9:45a [facility] Jasen Lai, 25911 719.46 [employer] [facility] Office Visit 05/15/2013 9:15a [facility] Dorian Nickerson, [address] [facility] 278.01 Office Visit 09/26/2012 9:30a [facility] Dorian Nickerson 65332 327.[address] [facility] 278.01 706.2 Office Visit 06/20/2012 10:45a [facility] Dorian Nickerson, 73475 327.[address] [facility] 278.01 Office Visit 04/10/2012 9:30a [facility] Dorian Nickerson, 39068 278.[address] [facility] 327.23 478.19 Office Visit 11/15/2010 3:00p DO Not Use [facility], 34903 V70.0 [facility],FACP 278.01 571.9 457.1 Office Visit 09/20/2010 9:40a DO Not Use [facility], 98985 682.7 [facility],FACP 453.40 Office Visit 03/17/2008 8:40a DO Not Use [employer], 78040 278.01 [facility],FACP 571.8 401.1 Office Visit 11/14/2007 3:20p DO Not Use [facility], 89130 V70.0 [facility],FACP 278.01 573.3 477.9 401.1 470 Plan of Care Future Appointment(s):09/18/2017 9:10 am - Fernando Vidales M.D. at [facility]00/12/2018 - Fernando Vidales M.D.Z86.19 Personal history of other infectious and parasitic diseasesNew Medication: Levofloxacin 500 mgFollow up:2-3 weeks
[2017-09-07] MEDS: Enoxaparin(*) 40 MG/0.4 ML SYR SUBCUT SCH (12:58)
--- NOTE | 2017-09-07 14:56 | RAD ---
INDICATION: Fever COMPARISON: August 25, 2017 TECHNIQUE: PA and lateral dual-energy views were obtained. FINDINGS: Bones/Soft Tissues: There are no acute bony findings. There is an orthopedic screw the level of the right scapula. There is a left-sided Jsmhmj-n-Aafv catheter Cardiomediastinal: The cardiomediastinal silhouette is normal. Lungs: There are no infiltrates. Pleura: There are no pleural effusions. Other: None IMPRESSION: NO ACTIVE DISEASE.
[2017-09-07] MEDS: ZOSYN 3.375 GM Q8H per EXTENDED INFUSION IVPB SCH ×4 (15:14→21:58)
[2017-09-07] MEDS: NS 0.9% 1000 ML* 1,000 ML IV SCH (17:11)
[2017-09-08] MEDS: ZOSYN 3.375 GM Q8H per EXTENDED INFUSION IVPB SCH ×6 (05:37→21:42)
[2017-09-08 06:56] LABS: EGFR Non-African American 126.1 (>60)
[2017-09-08 07:12] LABS: ABS Basophils 0 10^3/ul (0-0.2); ABS Eosinophils 0.1 10^3/ul (0-0.6); ABS Lymphocytes 1.2 10^3/ul (1.0-4.8); ABS Monocytes 0.5 10^3/ul (0-0.8); ABS Nucleated RBC 0 10^3/ul; Eosinophil % 1.4 % (0-6); Hematocrit 27 % (42-52); Hemoglobin 9.1 g/dl (14.0-18.0); Lymphocyte % 30.7 % (25-47); Mean Corpuscular HGB Conc 33 g/dl (31-36); Mean Corpuscular Hemoglobin 27 pg (27-31); Mean Corpuscular Volume 80 fL (80-94); Mean Platelet Volume 7 um3 (7.4-10.4); Nucleated Red Blood Cells % 0; Platelet Count 200 10^3/ul (150-450); Red Cell Distribution Width 17 % (10.5-15); White Blood Count 3.8 10^3/ul (3.5-10.8)
[2017-09-08] MEDS: Enoxaparin(*) 40 MG/0.4 ML SYR SUBCUT SCH (09:08)
[2017-09-08] MEDS: NS 0.9% 1000 ML* 1,000 ML IV SCH (13:20)
[2017-09-09 00:01] LABS: Urine Appearance Clear; Urine Blood Negative (Negative); Urine Color Amber; Urine Ketones Negative (Negative); Urine Protein 1+(30 mg/dL) (Negative); Urine Specific Gravity 1.029 (1.010-1.030); Urine Urobilinogen Positive (Negative)
[2017-09-09] MEDS: ZOSYN 3.375 GM Q8H per EXTENDED INFUSION IVPB SCH ×6 (05:27→21:47)
[2017-09-09] MEDS: Enoxaparin(*) 40 MG/0.4 ML SYR SUBCUT SCH (09:25)
[2017-09-09] MEDS: NS 0.9% 1000 ML* 1,000 ML IV SCH (16:20)
[2017-09-10] MEDS: NS 0.9% 1000 ML* 1,000 ML IV SCH ×2 (04:04→13:32)
[2017-09-10] MEDS: ZOSYN 3.375 GM Q8H per EXTENDED INFUSION IVPB SCH ×6 (05:59→22:25)
[2017-09-10] MEDS: Enoxaparin(*) 40 MG/0.4 ML SYR SUBCUT SCH (09:22)
--- NOTE | 2017-09-10 20:13 | CONS ---
CONSULTATION REPORT: DATE OF CONSULTATION: 09/10/17 REQUESTING PHYSICIAN: Dr. Ritter. CONSULTING SERVICE: Infectious Disease. REASON FOR CONSULTATION: Enterococcal bacteremia. IMPRESSION: 1. Enterococcus faecium in /4 blood cultures bottles sensitive to ampicillin, vancomycin, Unasyn, intermediate to Levaquin, sensitive to linezolid. He has no focal signs or symptoms at this point. He does have a port, infection there is consideration; however, he also has biliary stents and history of recent gram - negative bacteremia with combination of bowel arielle suggestive of a biliary infection whether due to stenosis and some bile sludging or small liver abscess. 2. Colon cancer metastatic to liver. 3. He has a PENICILLIN allergy listed, which he reports is on the basis of no path reaction, but his father had been allergic. He tolerated Zosyn well here. RECOMMENDATIONS: Continue Zosyn. We will recheck blood cultures, obtain an MRCP to allow for liver abscess or ongoing biliary ductal dilation. Once I have information, Dr. Ritter is going to discuss the case with Dr. Barrientos in [place] who put the stents in as remaining concern that he needs his stents exchanged. HISTORY OF PRESENT ILLNESS: This is a 51-year-old man with metastatic colon cancer, recent admission with hyperbilirubinemia and jaundice who eventually had a biliary stent put in [facility], had started chemotherapy via right chest port and then developed fever and chills back early August and on 08/25/17, his blood cultures grew Klebsiella Enterobacter and Citrobacter. CT abdomen and pelvis showed no abscess at that time. He was treated with IV Levaquin for 5 days and switched to oral Levaquin, which he was tolerating well and felt good. Then on Sunday morning, he developed fever, chills, and sweats, was seen by Dr. Acosta, who obtained more cultures and had him admitted to the hospital. Cultures at that time 10/24 growing Enterococcus faecium. He had a fever of 38.7 when he arrived in the hospital and has been afebrile since. He feels back to his usual self after 48 hours of IV antibiotics. He has no cough, trouble breathing, abnormal pain, nausea, vomiting, diarrhea. He has not had continued fever, though he has had his port accessed. PAST MEDICAL HISTORY: 1. Colon cancer stage IV, metastasis to the liver. 2. History of enterohepatic obstruction for the tumor, had stents placed in in [place]. Two or three areas of obstruction were stented. 3. Started FOLFOX and Avastin in 08/20/17. 4. Gram-negative bacteremia, 08/25/17. 5. Obesity. ALLERGIES: No known drug allergies. MEDICATIONS: 1. Tylenol. 2. Enoxaparin. 3. Heparin flushes through the port. 4. Ibuprofen. 5. Zosyn 3.375 g IV every 8 hours by extended infusion. SOCIAL HISTORY: Lives in [place] with his . No sick contacts. FAMILY HISTORY: No recurrent infection. REVIEW OF SYSTEMS: A 14-point review of systems was negative except as noted above. PHYSICAL EXAM: Vital Signs: Temperature is 36.3, heart rate 70, respiratory rate 16, blood pressure 130/80, oxygen saturation 98% on room air. General: He is awake, not in distress. Neurologic: He is oriented x3 and follows all commands, answers all questions. HEENT: There is no conjunctival hemorrhage. Oropharynx is without lesions. Neck is supple. Lymph Nodes: There is no inguinal, axillary, epitrochlear lymphadenopathy. Heart is regular rate and rhythm without murmurs, rubs, or gallops. Lungs: Clear to auscultation bilaterally. Abdomen: Soft, nontender, nondistended. There are bowel sounds present. Skin: There are no rashes or splint hemorrhages. Musculoskeletal: There is no spine tenderness to palpation. There is right chest port, which is nontender without erythema. LABORATORY DATA: Lab data from 09/08/17, creatinine 0.6, bilirubin 1.5, alkaline phosphatase 230, ALT 17, white blood cell count 3.8, hemoglobin 9, platelets 200, MCV is 80. Urinalysis shows no leukocyte esterase, no blood, no white cells. Please see impressions and recommendations outlined above, which I have discussed with Dr. Ritter. Thank you for asking me to see Mr. Allen in consultation. [id number]/[facility] #: [id number] [facility] HOSPITALNikita
[2017-09-11] MEDS: NS 0.9% 1000 ML* 1,000 ML IV SCH (02:57)
[2017-09-11] MEDS: ZOSYN 3.375 GM Q8H per EXTENDED INFUSION IVPB SCH ×4 (06:03→14:33)
[2017-09-11] MEDS: Enoxaparin(*) 40 MG/0.4 ML SYR SUBCUT SCH (09:22)
--- NOTE | 2017-09-11 10:13 | RAD ---
INDICATION: Metastatic colon cancer or a biliary stent, bacteremia. COMPARISON: Comparison is made with a prior CT of the abdomen and pelvis from August 29, 2017. TECHNIQUE: Axial and coronal heavily T2-weighted images of the abdomen were obtained. Images were reconstructed in the maximum intensity projection format. FINDINGS: The liver is enlarged with multiple ill-defined T2 hyperintense lesion which correlate with the metastatic lesions noted on the prior CT study. These are better seen on the CT exam. In addition there is intrahepatic ductal distention which is at least moderate in degree. The common hepatic and bile ducts appear nondistended. There was a stent catheter present on the prior CT study which may be present currently although is not well visualized. There appears to be a high-grade obstruction at the biliary confluence at the proximal aspect of the common hepatic duct. No gallstones are seen. The gallbladder is nondistended although there is diffuse wall thickening which is unchanged from the prior CT study. There is a nodule in the left adrenal gland which is better seen on the prior CT study. The kidneys appear within normal limits in size. No hydronephrosis is seen. The results of this exam were discussed with the referring clinician. IMPRESSION: 1. INTRAHEPATIC DUCTAL DISTENTION SECONDARY TO HIGH-GRADE OBSTRUCTION AT THE BILIARY CONFLUENCE AT THE LEVEL OF THE PROXIMAL COMMON HEPATIC DUCT. 2. THE GALLBLADDER IS NONDISTENDED ALTHOUGH THERE IS DIFFUSE GALLBLADDER WALL THICKENING WHICH IS UNCHANGED. 3. HEPATOSPLENOMEGALY AND MULTIPLE HEPATIC LESIONS CONSISTENT WITH METASTATIC DISEASE.
[2017-09-11 12:48] VITALS: BP 143/92
--- NOTE | 2017-09-11 15:43 | RAD ---
INDICATION: Evaluate biliary stents COMPARISON: CT abdomen pelvis August 29, 2007 TECHNIQUE: Supine and upright views of the abdomen were obtained. FINDINGS: There are 2 biliary stents overlying the right upper quadrant. The more proximal stent overlies the left lobe of the liver and and terminates inferiorly at the expected location of the second portion of duodenum. The slightly more inferior stent starts at the expected location of the right intrahepatic biliary radical and terminates more inferiorly at the junction of the second and third portion of the duodenum. The gas and bowel pattern is otherwise unremarkable. IMPRESSION: 2 biliary stents as described above that appear to be in similar location as they were on the August 29, 2017 CT examination.
--- NOTE | 2017-09-11 15:45 | PN ---
Progress Note - Progress Note Date of Service: 09/11/17 SOAP: Subjective: CC: bacteremia HPI: 51 year old man with fever, E. faecium bacteremia; improved on antibiotics. No fever, rash, or diarrhea. Objective: Vital Signs Temp 36.8 C 09/11/17 11:08 Pulse 79 09/11/17 11:08 Resp 18 09/11/17 11:08 BP 143/92 09/11/17 11:08 Pulse Ox 98 09/11/17 11:08 Intake & Output 09/10/17 09/11/17 09/11/17 18:59 06:59 18:59 Intake Total 2330 860 1150 Balance 2330 860 1150 Weight 309 lb 14.4 oz Intake: IV Fluids 1062 NS (0.9%) 1062 IVPB 328 100 ABX - ZOSYN 328 100 Oral 619 014 8995 Other: Estimated Void Medium # Bowel Movements 3 Estimated Stool Amount Small # Voids 2 Gen:awake, no distress HEENT:PERRL, MMM Heart:RRR no murmur Lungs:CTA BL Abd:+BS NTND soft Skin:no rash Microbiology 09/10/17 15:29 Aerobic Blood Culture - Preliminary Blood Venous No Growth Day 1 Anaerobic Blood Culture - Preliminary No Growth Day 1 09/10/17 11:35 Aerobic Blood Culture - Preliminary Blood Venous No Growth Day 1 Anaerobic Blood Culture - Preliminary No Growth Day 1 MRCP: common hepatic duct stenosis Assessment: 1. Enterococcus faecium bacteremia; recent GN bacteremia; due to biliary re- stenosis 2. biliary stenosis s/p stent x2 3. metastatic colon cancer. receiving chemotherapy Plan: 1. daptomycin 850 mg IV daily for 7 days; levaquin 500 mg po daily. FU with biliary svc at [facility] to be arranged by Dr Ritter for this week. 35 minutes floor time >50% face to face discussing antibiotic and stent eval plans
== END 2017-09-11 19:00 | disposition home or self-care (01) | DRG 435 ==
LOC: MED 09:45
PROVIDERS: ADMIT Internal Medicine Hematology & Oncology; ATTEND Internal Medicine Hematology & Oncology
DX: C78.7 Secondary malignant neoplasm of liver and intrahepatic bile duct (principal); K83.1 Obstruction of bile duct; C18.9 Malignant neoplasm of colon, unspecified; E66.01 Morbid (severe) obesity due to excess calories; B95.2 Enterococcus as the cause of diseases classified elsewhere; R50.81 Fever presenting with conditions classified elsewhere; T85.858A Stenosis due to other internal prosthetic devices, implants and grafts, initial encounter; Z88.0 Allergy status to penicillin; Z79.1 Long term (current) use of non-steroidal anti-inflammatories (NSAID); Z79.899 Other long term (current) drug therapy; Z68.39 Body mass index [BMI] 39.0-39.9, adult; Z80.8 Family history of malignant neoplasm of other organs or systems
CPT/HCPCS: 36415; 71046; 74019; 74181; 76376; 80053; 81003; 81015; 83605; 85025; 87040; 87077; 87186; 99223; 99232; 99238; A9270-GY; J1642; J1650; J2543

== ENCOUNTER 2017-09-20 22:19 | Inpatient (IN) | payer OTHER ==
[2017-09-20] MEDS ORDERED: Ketorolac INJ* 30 MG/ML 1 ML VIAL IV ONE (22:29)
[2017-09-20] MEDS ORDERED: Levofloxacin 750 MG IVPREMIX(* 750 MG/150 ML BAG IVPB ONE (22:31)
[2017-09-20] MEDS ORDERED: NS 0.9% 1000 ML* 1,000 ML IV ONE (22:31)
--- OUTSIDE RECORDS SUMMARY | 2017-09-20 22:38 | XMS REPORT ---
:1965 External Reference #:[id number] [facility] Address [address] [address] Phone [phone] Care Team Providers Name Role Phone Will Summers MD Primary Care Physician Unavailable Payers Type Date Identification Numbers Payment Provider Subscriber Commercial Effective: Policy Number: Aet[employer]-CP[employer] Kaylee Lindquist 2011 [id number] Group Number: [id number] [address] PayID: [id number] [place] [address] Medigap Part B Expires: 2011 Policy Number: [employer] Insurance Kaylee Lindquist [id number] Group Number: [id number] [address] PayID: [id number] [place] [address] Problems Date Description Provider Status Onset: 07/13/2017 [...] Lives With Spouse Occupation Currently Working at [employer] Cigarette Use Never Smoked Cigarettes Cigars 08/25/2016 [...] Strength Qnty SIG Indications Ordering Provider Ibuprofen 08/22 Active Tablets 600mg 30tab 1 by mouth s Q 8 hrs as Ordering needed Provider Compression 12/07 Active Use Fnu Stockings - bilaterall Cedric, Size y as MD needed. Bi-Pap 06/20 Active 1unit ipap s epap 12 Glendy with ab hughes M.D. supplies Prochlorperazine Active Tablets 10mg Take 1 Unknown Maleate /0000 Tablet By Mouth Every 6 Hours as Needed Ondansetron HCL Active Tablets 4mg Take 1 Unknown /0000 Tablet By Mouth Every 4 Hours as Needed Daptomycin Active Solution 850mg iv every Unknown /0000 Rec 24 hours x 7 days at [facility] Levofloxacin 09/03 Hx Tablets 500mg 30tab 1 by mouth Z86.19 s every day D. - Macqueen, 09/17 M.D. Clindamycin HCL 08/29 Hx Capsules 300mg 30cap 1 tabs by L03.116 s mouth 3 D. - times a Macqueen, 06/25 day; take M.D. for return of chills, fevers, leg swelling, redness Cephalexin 08/22 Hx Capsules 500mg 40cap 1 by mouth s 4 times a Ordering - day x 10 Provider Cephalexin 09/20 Hx Capsules 500mg 28cap qid po 682.7 Will Melva Almanzar M.D.,FACP 11/15 Ibuprofen 09/20 Hx Tablets 600mg 60tab tid prn 682.7 Will Melva Almanzar M.D.,[facility] 10/01 Nasonex 11/13 Hx Suspension 50mcg/Act 1Mon 2 spray 477.9 kary each Yancy Summers, - yareli qd Ena.Yancy,[facility] 11/24 Claritin Hx Tablets 10mg 30tab PO qd prn Unknown /0000 s - 11/24 Flonase Hx Suspension 1Bott 1 Unknown /0000 le Intranasal - puff To 03/17 Nostril Daily Levaquin Hx Tablets 500mg 1 by mouth Unknown /0000 every day - 09/17 Cefepime HCL Hx Solution Unknown /0000 Rec - 08/31 Immunizations CPT Code Status Date Vaccine Lot # [id number] Refused 06/11/2009 Influenza Virus Vaccine, Pandemic Formulation Vital Signs Date Vital Result Comment 09/18/2017 Height 73 inches 6'1" Weight 302.00 lb Heart Rate 84 /min BP Systolic Sitting 148 mmHg BP Diastolic Sitting 96 mmHg Respiratory Rate 14 /min Body Temperature 98.6 F BMI (Body Mass Index) 39.8 kg/m2 09/03/2017 Height 73 inches 6'1" Weight 310.50 [...] Test Date Test Result H/L Range Note Comp Metabolic Panel 09/12/2017 Sodium 137 mmol/L 133-145 Potassium 3.7 mmol/L 3.5-5.0 Chloride 103 mmol/L 101-111 Co2 Carbon Dioxide 28 mmol/L 22-32 Anion Gap 6 mmol/L 2-11 Glucose 160 mg/dL High 70-100 Blood Urea Nitrogen 5 mg/dL Low 6-24 Creatinine 0.57 mg/dL Low 0.67-1.17 BUN/Creatinine Ratio 8.8 8-20 Calcium 9.2 mg/dL 8.6-10.3 Total Protein 7.1 g/dL 6.4-8.9 Albumin 3.1 g/dL Low 3.2-5.2 Globulin 4.0 g/dL 2-4 Albumin/Globulin Ratio 0.8 Low 1-3 Total Bilirubin 1.30 mg/dL High 0.2-1.0 Alkaline Phosphatase 320 U/L High 34-104 Alt 26 U/L 7-52 Ast 42 U/L High 13-39 Egfr Non- 151.9 >60 Egfr 195.4 >60 1 Laboratory test finding 09/12/2017 Creatine Kinase(CK) 32 U/L 10-223 C Reactive Protein 23.77 mg/L High < 5.00 2 CBC Auto Diff 09/12/2017 White Blood Count 5.0 10^3/uL 3.5-10.8 Red Blood Count 4.06 10^6/uL 4.0-5.4 Hemoglobin 10.5 g/dL Low 14.0-18.0 Hematocrit 32 % Low 42-52 Mean Corpuscular Volume 80 fL 80-94 Mean Corpuscular Hemoglobin 26 pg Low 27-31 Mean Corpuscular HGB Conc 33 g/dL 31-36 Red Cell Distribution Width 17 % High 10.5-15 Platelet Count 276 10^3/uL 150-450 Mean Platelet Volume 8 um3 7.4-10.4 Abs Neutrophils 2.9 10^3/uL 1.5-7.7 Abs Lymphocytes 1.6 10^3/uL 1.0-4.8 Abs Monocytes 0.4 10^3/uL 0-0.8 Abs Eosinophils 0.1 10^3/uL 0-0.6 Abs Basophils 0 10^3/uL 0-0.2 Abs Nucleated RBC 0 10^3/uL Granulocyte % 58.2 % 38-83 Lymphocyte % 31.5 % 25-47 Monocyte % 7.1 % 1-9 Eosinophil % 2.6 % 0-6 Basophil % 0.6 % 0-2 Nucleated Red Blood Cells % 0.1 Laboratory test finding 09/07/2017 Blood Culture SEE RESULT BELOW 3 CBC Auto Diff 09/07/2017 White Blood Count 5.8 10^3/uL 3.5-10.8 Red Blood Count 4.25 10^6/uL 4.0-5.4 Hemoglobin 11.2 g/dL Low 14.0-18.0 Hematocrit 34 % Low 42-52 Mean Corpuscular Volume 80 fL 80-94 Mean Corpuscular Hemoglobin 26 pg Low 27-31 Mean Corpuscular HGB Conc 33 g/dL 31-36 Red Cell Distribution Width 17 % High 10.5-15 Platelet Count 351 10^3/uL 150-450 Mean Platelet Volume 7 um3 Low 7.4-10.4 Abs Neutrophils 4.2 10^3/uL 1.5-7.7 Abs Lymphocytes 0.9 10^3/uL Low 1.0-4.8 Abs Monocytes 0.7 10^3/uL 0-0.8 Abs Eosinophils 0 10^3/uL 0-0.6 Abs Basophils 0 10^3/uL 0-0.2 Abs Nucleated RBC 0 10^3/uL Granulocyte % 71.7 % 38-83 Lymphocyte % 15.2 % Low 25-47 Monocyte % 12.2 % High 1-9 Eosinophil % 0.1 % 0-6 Basophil % 0.8 % 0-2 Nucleated Red Blood Cells % 0 Comp Metabolic Panel 09/07/2017 Sodium 134 mmol/L 133-145 Potassium 3.8 mmol/L 3.5-5.0 Chloride 99 mmol/L Low 101-111 Co2 Carbon Dioxide 27 mmol/L 22-32 Anion Gap 8 mmol/L 2-11 Glucose 131 mg/dL High 70-100 Blood Urea Nitrogen 8 mg/dL 6-24 Creatinine 0.80 mg/dL 0.67-1.17 BUN/Creatinine Ratio 10.0 8-20 Calcium 9.1 mg/dL 8.6-10.3 Total Protein 7.4 g/dL 6.4-8.9 Albumin 3.2 g/dL 3.2-5.2 Globulin 4.2 g/dL High 2-4 Albumin/Globulin Ratio 0.8 Low 1-3 Total Bilirubin 1.80 mg/dL High 0.2-1.0 Alkaline Phosphatase 376 U/L High 34-104 Alt 24 U/L 7-52 Ast 36 U/L 13-39 Egfr Non- 102.7 >60 Egfr 132.1 >60 4 Laboratory test finding 09/07/2017 Lactic Acid 1.8 mmol/L 0.5-2.0 5 Urinalysis Profile 09/07/2017 Urine Color Yellow Urine Appearance Clear Urine Specific Unity 1.012 1.010-1.030 Urine pH 6.0 5-9 Urine Urobilinogen Negative Negative Urine Ketones Negative Negative Urine Protein Negative Negative Urine Leukocytes Negative Negative Urine Blood Negative Negative Urine Nitrite Negative Negative Urine Bilirubin Negative Negative Urine Glucose Negative Negative Laboratory test 09/07/2017 Blood Culture SEE RESULT BELOW 6 finding Laboratory test 08/30/2017 Blood Culture SEE RESULT BELOW 7, 8 finding CBC Auto Diff 08/02/2017 White Blood [...] Non- 128.3 >60 Egfr 165.0 >60 9 Iron & Iron Binding Capacity 08/02/2017 Iron 34 g/dL Low 50-212 Unsaturated Iron Binding 281 g/dL Total Iron Binding Capacity 315 g/dL 250-450 % Iron Saturation 11 % Low 15-55 Laboratory test finding 08/02/2017 Ferritin 189.3 ng/mL 24-336 Carcinoembryonic Antigen Cea 1216.2 ng/mL High 0.1-5.0 10 Comp Metabolic Panel 07/27/2017 Sodium 136 mmol/L [...] Egfr Non- 130.6 >60 Egfr 167.9 >60 11 CBC Auto Diff 07/27/2017 White Blood Count [...] Red Blood Cells % 0 Laboratory test finding 07/17/2017 Lactic Acid 0.9 mmol/L 0.5-2.0 12 Comp Metabolic Panel 07/17/2017 Sodium 136 mmol/L [...] Egfr Non- 114.2 >60 Egfr 146.9 >60 13 Total Bilirubin 17.50 mg/dL High 0.2-1.0 14 Laboratory test finding 07/17/2017 Lipase < 10 U/L Low 11.0-82.0 C Reactive Protein 53.66 mg/L High < 5.00 15 CBC Auto Diff 07/17/2017 White Blood Count [...] 10^3/uL 0-0.2 Abs Nucleated RBC 0 10^3/uL Manual Differential 07/17/2017 Neutrophil % 78 % 38-83 Lymphocytes % 13 % Low 25-47 Monocytes % 7 % 0-13 Eosinophils % 1 % 0-6 Basophil % 1 % 0-2 RBC Morphology Normal Normal Comp Metabolic Panel 07/12/2017 Sodium 134 mmol/L [...] Egfr Non- 119.9 >60 Egfr 154.2 >60 16 Total Bilirubin 14.90 mg/dL High 0.2-1.0 17 CBC Auto Diff 07/12/2017 White Blood Count [...] Carcinoembryonic Antigen 665.5 ng/mL High 0.1- 5.0 18 finding Cea Laboratory test 07/12/2017 Surgical Pathology SEE RESULT 19 finding BELOW Occult Blood,Stool 07/09/2017 Occult Blood [...] Egfr Non- 128.3 >60 Egfr 165.0 >60 20 Laboratory test finding 06/26/2017 C Reactive Protein 55.82 mg/L High &lt ; 5.00 21 Erythrocyte Sed Rate 83 mm/Hr High 0-14 [...] Egfr Non- 65.9 >60 Egfr 84.7 >60 22 Laboratory test finding 08/20/2016 C Reactive Protein 188.50 mg/L High &lt ; 5.00 23 Laboratory test finding 08/20/2016 Lactic Acid 2.3 mmol/L High 0.5-2.0 24 Blood Culture SEE RESULT BELOW 25 Laboratory test finding 05/20/2015 Rapid Influenza A B SEE RESULT BELOW 26 Antigen Throat-Beta Strept SEE RESULT BELOW 27 Xray 10/01/2014 Knee Complete LT <pending> Liver Function Panel 11/15/2010 Total Protein 6.8 GM/DL 6.2-8.1 Albumin 3.7 GM/DL 3.6-5.4 Globulin 3.1 GM/DL 2-4 Albumin/Globulin Ratio 1.2 1-3 Bilirubin Total 0.9 mg/dL 0.4-1.5 28 Bilirubin Direct 0.1 mg/dL 0.1-0.5 Indirect Bilirubin 0.8 mg/dL 0.3-1.0 29 Alkaline Phosphatase 43 U/L 39-117 Alt (SGPT) 45 U/L 17-63 Ast (Sgot) 33 U/L 12-42 Laboratory test finding 11/15/2010 TSH 2.56 MIU/ML 0.34-5.60 Lipid Profile (Trig/Chol/HDL) 11/14/2010 Triglyceride 153 mg/dL 40-200 Cholesterol 164 mg/dL Less Than 200 30 High Density Lipoprotein 38 mg/dL Low 40-60 31 Cholesterol/HDL Ratio 4.32 AVERAGE 1-4.97 Low Density Lipoprotein 95 mg/dL Less Than 100 32 Laboratory test finding 11/14/2010 Glucose 97 mg/dL [...] Quantitative 472 NG/ML High Less Than 230 33 Urine Culture & 09/12/2010 Urine Culture Sensitivi NG 34 Sensitivi Laboratory test finding 03/02/2008 Ferritin 192 [...] Metabolic Panel 09/05/2007 One Over Creatinine 1.00 35 Anion Gap 5.0 mmol/L 2-11 35, 36 BUN 14 mg/dL 6-24 35 Calcium 9.2 mg/dL 8.7-10.2 35 Chloride 104 mmol/L 101-111 35 Co2 (Carbon Dioxide) 30.0 mmol/L 22-32 35 Glucose 90 mg/dL 70-105 35 Potassium 4.1 mmol/L 3.5-5.0 35 Sodium 139 mmol/L 135-145 35 BUN/Creatinine Ratio 14.0 8-20 35 Creatinine 1.0 mg/dL 0.5-1.4 35 Lipid Profile 09/05/2007 Cholesterol/HDL Ratio 4.38 AVERAGE 1-4.97 35 (Trig/Chol/HDL) Cholesterol 171 mg/dL Less Than 200 35, 37 Triglyceride 158 mg/dL 40-200 35 High Density Lipoprotein 39 mg/dL Low 40-60 35, 38 Low Density Lipoprotein 100 mg/dL Less Than 100 35, 39 Laboratory test finding 09/05/2007 PSA Screening 1.45 NG/ML 0-4 35, 40 1 Because ethnic data is not always [...] (or dialysis) 2 Acute inflammation: >10.00 3 SEE RESULT BELOW Name: RACHID LINDQUIST : [address]: Mina Acosta MD Acct: [id number] Unit: [id number] AGE: 51 Location: [facility] Re09/07/17 SEX: M Status: REG REF SPEC: [id number] TARIQ: 09/07/[address]: Mina Acosta MD REQ: [id number] RECD: 09/07/17 STATUS: FELIX GOODSON DR: Mike Johnson III, MD _ SOURCE: BLOOD,VENO SPDESC: ORDERED: Blood Cult COMMENTS: Verbal to DR HENDRIX by [id number] at 0745 on 09/08/17. Results read back accurately. Procedure Result Reported Site Aerobic Culture Bottle Final 09/10/17- 0824 ML Aerobic Bottle Gram Stain Gram Positive Cocci, resemb. Strep Organism 1 ENTEROCOCCUS FAECIUM Please refer to [id number] culture AEROBIC bottle for sensitivity testing. Anaerobic Culture Bottle Final 09/10/17- 0824 ML Anaerobic Btl Gram Stain Gram Positive Cocci resembling Strep Organism 1 ENTEROCOCCUS FAECIUM Please refer to [id number] culture AEROBIC bottle for sensitivity testing. * ML - MAIN LAB ([facility]) . END OF REPORT * ML=Testing performed at Main Lab DEPARTMENT OF PATHOLOGY, [address] [place] [address] Malik Bingham M.D. Director [facility] # [id number] 4 Because ethnic data is not always readily [...] 15-29 5 Kidney failure <15 (or dialysis) 5 [facility] Severe Sepsis and Septic Shock Management Bundle Measure requires all lactic acids initially measuring >2.0 mmol/L be repeated. 6 SEE RESULT BELOW Name: RACHID LINDQUIST Dwain : [address]: Mina Acosta MD Acct: [id number] Unit: [id number] AGE: 51 Location: [facility] Re09/07/17 SEX: M Status: REG REF SPEC: [id number] TARIQ: 09/07/17-[address]: Mina Acosta MD REQ: [id number] RECD: 09/07/17 STATUS: RES OTHR DR: Mike Johnson III, MD _ SOURCE: BLOOD,LINE SPDESC: ORDERED: Blood Cult COMMENTS: Verbal to DR HENDRIX by [id number] at 0952 on 09/08/17. Results read back accurately. Procedure Result Reported Site Aerobic Culture Bottle Final 09/10/17- 819 ML Aerobic Bottle Gram Stain Gram Positive Cocci, resemb. Strep Organism 1 ENTEROCOCCUS FAECIUM 1. ENTEROCOCCUS FAECIUM M.I.C. RX --------- ------ Ampicillin <=2 S Penicillin 4 S Ciprofloxacin 1 S Erythromycin >=8 R Gentamicin High Level S Levofloxacin 4 I Linezolid 2 S Nitrofurantoin 128 R * Quinupristin/Dalfopristin 4 R * Streptomycin High Level S Tetracycline <=1 S Doxycycline - Deduced S * Minocycline - Deduced S Tigecycline <=0.12 S Vancomycin <=0.5 S * Ampicillin/Sulbactam-Deduced S CONTINUED ON NEXT PAGE * ML=Testing performed at Main Lab DEPARTMENT OF PATHOLOGY, [address] [place] [address] Malik Bingham M.D. Director [facility] # [id number] Patient: RACHID LINDQUIST [id number] (Continued) Specimen: [id number] Collected: 09/07/17 Received: 09/07/17 (Continued) Procedure Result Reported Site Aerobic Culture Bottle Final (continued) * These antibiotics are not available in the [facility] Formulary Contact the Microbiology Department for any additional antibiotic reporting. Anaerobic Culture Bottle Preliminary 09/08/17- 1132 ML Anaerobic Btl Gram Stain Gram Positive Cocci resembling Strep * ML - MAIN LAB ([facility]) . END OF REPORT * ML=Testing performed at Main Lab DEPARTMENT OF PATHOLOGY, [address] [place] [address] Malik Bingham M.D. Director [facility] # [id number] 7 Patient is On Antibiotics? YES Comment: 1 from port, 1 from peripheral Reason for Exam: bacteri 8 SEE RESULT BELOW Name: RACHID LINDQUIST : [address]: Mina Acosta MD Acct: [id number] Unit: [id number] AGE: 51 Location: INF Re08/29/17 SEX: M Status: REG REF SPEC: [id number] TARIQ: 08/30/[address]: Mina Acosta MD REQ: [id number] RECD: 08/30/17 STATUS: FELIX GOODSON DR: Mike Johnson III, MD _ SOURCE: BLOOD,VENO SPDESC: ORDERED: Blood Cult COMMENTS: Patient is On Antibiotics? YES Comment: 1 from port, 1 from peripheral Reason for Exam: bacterial infection Procedure Result Reported Site Aerobic Culture Bottle Final 09/04/17- 1156 ML No Growth Day 5 Anaerobic Culture Bottle Final 09/04/17- 1156 ML No Growth Day 5 * ML - MAIN LAB ([facility]) . END OF REPORT * ML=Testing performed at Main Lab DEPARTMENT OF PATHOLOGY, [address] [place] [address] Malik Bingham M.D. Director [facility] # [id number] 9 Because ethnic data is not always [...] 5 Kidney failure <15 (or dialysis) 10 Nonsmokers: < 2.9 ng/mL Some smokers may have elevated CEA, usually <5.0 ng/mL. Serum markers are not specific for malignancy, and values may vary by method. The testing method is an immunoenzymatic assay business executive by [employer] performed on [employer] DXI 600. Do not interpret serum CEA levels as absolute evidence of the presence or the absence of malignant disease. Use serum CEA in conjunction with information from the clinical evaluation of the patient and other diagnostic procedures. 11 Because ethnic data is not always [...] 5 Kidney failure <15 (or dialysis) 12 [facility] Severe Sepsis and Septic Shock Management Bundle Measure requires all lactic acids initially measuring >2.0 mmol/L be repeated. 13 Because ethnic data is not always readily [...] 15-29 5 Kidney failure <15 (or dialysis) 14 Critical Result TBIL:17.50 Called to [id number] at: 14:58:09 by:[id number] Read back by:[id number] 15 Acute inflammation: >10.00 16 Because ethnic [...] 5 Kidney failure <15 (or dialysis) 17 Critical Result TBIL:14.90 Called to BRENNAN HUTCHINS at: 16:25:04 by:[id number] Read back by:BRENNAN HUTCHINS 18 Nonsmokers: < 2.9 ng/mL Some smokers may have elevated CEA, usually <5.0 ng/mL. Serum markers are not specific for malignancy, and values may vary by method. The testing method is an immunoenzymatic assay business executive by [employer] performed on [employer] DXI 600. Do not interpret serum CEA levels as absolute evidence of the presence or the absence of malignant disease. Use serum CEA in conjunction with information from the clinical evaluation of the patient and other diagnostic procedures. 19 SEE RESULT BELOW Name: RACHID LINDQUIST Dwain : [address]: Thomas Judge MD Acct: [id number] Unit: [id number] AGE: 51 Location: ENDO Re07/12/17 SEX: M Status: REG REF SPEC: [id number] TARIQ: 07/12/17- [facility] DR: Thomas Judge MD REQ: [id number] RECD: 07/12/17 STATUS: BETTYE GOODSON DR: Will Johnson III, MD _ ORDERED: LEVEL 4/2, IMMUNO-FIRST, IMMUNO-ADDL/3 ALEJANDRO/ALEX panel has been performed at [place], [place]. The testing reveals: Test Result Flag Unit Ref Value ALEJANDRO/ALEX Panel, Tumor Result Summary See Comment RESULT: ALTERATIONS IDENTIFIED Result See Comment Provided diagnosis: Colorectal adenocarcinoma The following alterations were identified: Gene: KRAS DNA change: c.35G>A Amino Acid change: p.G12D ([id number]) Classification: MUTATION Gene: KRAS DNA change: c.38G>A Amino Acid change: p.G13D ([id number]) Classification: MUTATION No additional reportable somatic alterations [...] performed at Main Lab DEPARTMENT OF PATHOLOGY, [address] [place] [address] Malik Bingham M.D. Director [facility] # [id number] RUN DATE: 08/31/17 [facility] LAB LIVE PAGE 2 Patient: RACHID LINDQUIST [id number] (Continued) ADDENDUM (Continued) 2. Yolande Oncol. 2013 Feb;24(8):2062-7 (PMID [id number]) 3. N Engl J Med. 2013 Apr 03;369(11):1023-34 (PMID [id number]) Specimen Tissue, Tumor Tissue ID [id number] RESULT: Haleigh Sanchez M.D. 3-0140 Test Performed by: [address] [address] Addendum Signed (signature on file) Ina Oseguera [...] performed at Main Lab DEPARTMENT OF PATHOLOGY, [address] [place] [address] Malik Bingham M.D. Director [facility] # [id number] RUN DATE: 08/31/17 [facility] LAB LIVE PAGE 3 Patient: RACHID LINDQUIST [id number] (Continued) SPECIMEN COMMENTS (Continued) agrees with the [...] performed at Main Lab DEPARTMENT OF PATHOLOGY, [address] [place] [address] Malik Bingham M.D. Director [facility] # [id number] 20 Because ethnic data is not always readily [...] 15-29 5 Kidney failure <15 (or dialysis) 21 Acute inflammation: >10.00 22 Because ethnic data is not always readily [...] 15-29 5 Kidney failure <15 (or dialysis) 23 Acute inflammation: >10.00 24 Critical Result LACT:2.3 Called to [id number] at: 16:44:21 by:[id number] Read back by:[id number] [facility] Severe Sepsis and Septic Shock Management Bundle Measure requires all lactic acids initially measuring >2.0 mmol/L be repeated. 25 SEE RESULT BELOW Name: RACHID LINDQUIST : [address]: Destini Kat MD Acct: [id number] Unit: [id number] AGE: 50 Location: [place] [address] Re08/20/16 Dis: 08/22/16 SEX: M Status: DIS IN SPEC: [id number] TARIQ: 08/20/[address]: Oswaldo King MD REQ: [id number] RECD: 08/20/16 STATUS: FELIX GOODSON DR: Will Summers MD _ SOURCE: BLOOD,VENO SPDES: ORDERED: Blood Cult Procedure Result Reported Site Aerobic Culture Bottle Final 08/25/16- 1621 ML No Growth Day 5 Anaerobic Culture Bottle Final 08/25/16- 1621 ML No Growth Day 5 * ML - MAIN LAB ([facility]) . END OF REPORT * ML=Testing performed at Main Lab DEPARTMENT OF PATHOLOGY, [address] [place] [address] Malik Bingham M.D. Director [facility] # [id number] 26 SEE RESULT BELOW Name: RACHID LINDQUIST : [address]: Reba Jacobs MD Acct: [id number] Unit: [id number] AGE: 49 Location: [facility] Re05/20/15 SEX: M Status: DEP ER SPEC: [id number] TARIQ: 05/20/[address] [facility] [address]: Reba Jacobs MD REQ: [id number] RECD: 05/20/15 STATUS: FELIX GOODSON DR: Will Summers MD _ S[facility] ORDERED: Rapid Flu A B Procedure Result Verified Site Rapid Influenza A B Antigen Final 05/20/15- 2052 ML Organism 1 Negative Influenza A B Antigen testing by enzyme immunoassay. Cell culture testing can be performed to confirm negative test results and to assist in detecting other viruses that can produce similar clinical symptoms. Please notify Microbiology Lab if further testing is desired. * ML - [facility] ([facility]) . END OF REPORT * ML=Testing performed at Main Lab DEPARTMENT OF PATHOLOGY, [address] [place] [address] Malik Bingham M.D. Director [facility] # [id number] 27 SEE RESULT BELOW Name: RACHID LINDQUIST : [address]: Reba Jacobs MD Acct: [id number] Unit: [id number] AGE: 49 Location: [facility] Re05/20/15 SEX: M Status: DEP ER SPEC: [id number] TARIQ: 05/20/[address]: Reba Jacobs MD REQ: [id number] RECD: 05/20/15 STATUS: FELIX GOODSON DR: Will Summers MD _ SOURCE: THROAT SPDESC: ORDERED: Throat Beta Str Procedure Result Verified Site Throat Beta Strep Culture Final 05/22/15913 ML Negative For Group A Beta Streptococcus * ML - MAIN LAB ([facility]) . END OF REPORT * ML=Testing performed at Main Lab DEPARTMENT OF PATHOLOGY, [address] [place] [address] Malik Bingham M.D. Director [facility] # [id number] 28 A metabolite of Naproxen, O-desmethylnaproxen, has been shown to interfere with the Jendrassik-David method for measuring total bilirubin. Samples from patients who have taken Naproxen have shown spurious elevation in total bilirubin levels. 29 Please note updated reference range, effective 02/10/10 30 CHOLESTEROL INTERPRETATION: Desirable: Less than 200 MG/DL Borderline-High Risk: 200-239 MG/DL High-Risk: 240 MG/DL and over 31 HDL INTERPRETATION: Undesirable: High Risk: Less than 40 MG/DL Desirable: Low Risk: Greater than 60 MG/DL 32 LDL INTERPRETATION: Low Risk Optimal Level: LDL Less than 100 MG/DL Near or Above Optimal: LDL 100-129 MG/DL Borderline High Risk: LDL 130-159 MG/DL High Risk: LDL 160-189 MG/DL Very High Risk: LDL Greater than 189 MG/DL 33 Please note: The following may produce a false positive D Dimer test: - Rheumatoid factor greater than 60 IU/ml - Plasma hemoglobin greater than 0.05 gm/dl - Bilirubin greater than 50 mg/dl - Lipids greater than 1000 mg/dl - FDP greater than 20 ug/ml . 34 FINAL: NO GROWTH DAY 2 (<1,000 CFU/mL) 35 FASTING 36 Anion gap measurement may be of limited value in the presence of any alkalosis, especially in a combined acid base disorder. . 37 Classification: Desirable . 38 Classification: Low . 39 CALCULATED LDL APPROXIMATES THE VALUE OF A DIRECT LDL MEASUREMENT. Classification: Near or above optimal . 40 * SERUM LEVELS OF PSA MEASURED USING THE VIDAL SOFI ACCESS HYBRITECH IMMUNOASSAY SHOULD NOT BE INTERPRETED ABSOLUTE EVIDENCE OF THE PRESENCE OR ABSENCE OF DISEASE. THE PSA VALUE SHOULD BE USED IN CONJUNCTION WITH OTHER PERTINENT CLINICAL DIAGNOSTIC PROCEDURES. Procedures Date CPT Code Description Status 08/13/2017 89098 Fluoroscopic Guidance For Cent Completed 08/13/2017 11063 Insertion Tunneled Cent Venous Cathr W Subcut Port 5 Completed Yrs Or Oldr 07/12/2017 Colonoscopy Completed 10/01/2014 60008 Rad Exam; Knee Comp Completed 11/25/2013 72912 Xray Knee 3 Views Completed 10/10/2012 88713 Repair Immediate Wound 2.6-7.5CM Completed Scalp/Axillae/Trunk/Extremities 10/10/2012 01580 Excise Benign Lesion 2.1-3CM Completed Scalp/Neck/Hands/Feet/Genitalia 10/10/2012 39108 Excision Benign Lesion Incl Diameter 1.1 - 2.0 CM Completed Scalp,Neck,Hand 05/07/2012 98628 Polysomnography Sleep Staging 4+ Parameters W/Cpap Completed Encounters Type Date Location Provider CPT E/M Dx Office Visit 09/03/2017 [facility] Chepe Haines [address]254 Z86.19 3:40p Infectious Diseases Dave Vidales Office Visit 08/03/2017 [facility] [place], [address] C18.7 2:15p [facility] Office Visit 07/27/2017 [facility] Internal Medicine Mike Johnson, [address] R10.11 10:00a - Chase Acosta Office Visit 06/26/2017 [facility] Internal Medicine Mike Johnson, 48393 R10.84 9:00a - Chase Acosta Office Visit 08/29/2016 [facility] Chepe Haines 79601 L03.116 10:30a Infectious Diseases Dave Vidales R60.0 Office Visit 08/25/2016 4:00p [facility] Internal Will Summers, 79112 L03.116 Medicine - [address] Dave,FACP E66.01 I10 Office Visit 08/22/2016 12:25p [facility],rona Weller, 85790 L03.116 Hospitalrashard Acosta G47.33 A41.9 Office Visit 08/21/2016 12:24p [facility] Valeri Abbott, 32563 L03.116 Assoc,pc Hospitalists [employer] G47.33 A41.9 Office Visit 08/20/2016 [facility] Roberta Reinoso, 23674 L03.116 12:23p Assoc,pc [employer] Hospitalists G47.33 A41.9 Office Visit 11/19/2014 4:00p [facility] [place] [address] 844.9 Nipomo 278.00 715.36 278.01 V85.42 Office Visit 10/01/2014 2:20p [facility] [place] [address] 844.9 Nipomo 278.00 715.36 Office Visit 12/23/2013 8:30a [facility] Jasen Lai, 28382 719.[address] [facility] Office Visit 11/25/2013 9:45a [facility] Lai, 70136 719.[address] [facility] Office Visit 05/15/2013 9:15a [facility] Dorian Nickerson, [address] [facility] 278.01 Office Visit 09/26/2012 9:30a [facility] Dorian Nickerson, 70975 327.[address] [facility] 278.01 706.2 Office Visit 06/20/2012 10:45a [facility] Dorian Nickerson, 18474 327.[address] [facility] 278.01 Office Visit 04/10/2012 9:30a [facility] Dorian Nickerson, 05300 278.[address] [facility] 327.23 478.19 Office Visit 11/15/2010 3:00p DO Not Use Legal [facility], 93460 V70.0 [facility],FACP 278.01 571.9 457.1 Office Visit 09/20/2010 9:40a DO Not Use [facility], 72319 682.7 [facility],FACP 453.40 Office Visit 03/17/2008 8:40a DO Not Use [facility], 09261 278.01 [facility],FACP 571.8 401.1 Office Visit 11/14/2007 3:20p DO Not Use [facility], 98787 V70.0 [facility],FACP 278.01 573.3 477.9 401.1 470 Plan of Care No Information Available
[2017-09-20] MEDS ORDERED: Acetaminophen TAB* 325 MG PO ONE (23:04)
[2017-09-20 23:22] LABS: ABS Basophils 0 10^3/ul (0-0.2); ABS Eosinophils 0.1 10^3/ul (0-0.6); ABS Lymphocytes 0.9 10^3/ul (1.0-4.8); ABS Monocytes 0.5 10^3/ul (0-0.8); ABS Neutrophils 8.8 10^3/ul (1.5-7.7); ABS Nucleated RBC 0 10^3/ul; Eosinophil % 1.3 % (0-6); Hematocrit 38 % (42-52); Hemoglobin 12.5 g/dl (14.0-18.0); Lymphocyte % 8.3 % (25-47); Mean Corpuscular HGB Conc 33 g/dl (31-36); Mean Corpuscular Hemoglobin 26 pg (27-31); Mean Corpuscular Volume 78 fL (80-94); Mean Platelet Volume 7 um3 (7.4-10.4); Nucleated Red Blood Cells % 0; Platelet Count 315 10^3/ul (150-450); Red Cell Distribution Width 17 % (10.5-15); White Blood Count 10.3 10^3/ul (3.5-10.8)
[2017-09-20 23:23] LABS: INR 1.26 (0.77-1.02)
[2017-09-20 23:29] LABS: EGFR Non-African American 90.9 (>60)
[2017-09-20] MEDS ORDERED: NS 0.9% IVPB SCH (23:45)
[2017-09-20] MEDS ORDERED: DAPTOMYCIN IVPB SCH (23:45)
--- NOTE | 2017-09-21 01:25 | ED ---
Paresh Mcclendon Jennifer, scribed for Jensen Floyd MD on 09/20/17 at 2304 . HPI Febrile Illness - HPI Summary HPI Summary: The pt is a 51 y/o male who presents with fever that began tonight. Pt had his stents replaced three days ago at [facility] and stopped taking antibiotics two days ago when he developed fevers. The pt denies body aches, chills, sweats, cough, congestion, runny nose, dysuria, and urinary symptoms. - History of Current Complaint Chief Complaint: EDFever Time Seen by Provider: 09/20/17 22:56 Hx Obtained From: Patient Onset/Duration: Started Hours Ago, Still Present Timing: Constant Initial Severity: Mild Current Severity: Mild Pain Intensity: 0 Pain Scale Used: 0-10 Numeric Aggravating Factors: Nothing Alleviating Factors: Nothing - Additional Pertinent History Primary Care Physician: URBAN - Allergy/Home Medications Allergies/Adverse Reactions: Allergies Allergy/AdvReac Type Severity Reaction Status Date / Time Penicillins Allergy Unknown Unknown Verified 09/18/17 09:51 Reaction Details PMH/Surg Hx/FS Hx/Imm Hx Endocrine/Hematology History: Denies: Hx Diabetes, Hx Thyroid Disease Cardiovascular History: Denies: Hx Hypertension, Hx Pacemaker/ICD Respiratory History: Reports: Hx Sleep Apnea Denies: Hx Asthma, Hx Chronic Obstructive Pulmonary Disease (COPD) GI History: Reports: Hx Jaundice - resolved, Other GI Disorders - pt states "fatty liver", Colon CA Denies: Hx Ulcer History: Denies: Hx Renal Disease Sensory History: Reports: Hx Contacts or Glasses Denies: Hx Hearing Aid Opthamlomology History: Reports: Hx Contacts or Glasses Psychiatric History: Denies: Hx Panic Disorder - Cancer History Cancer Type, Location and Year: colon 07/17/17 Hx Chemotherapy: No - after powerport placed - Surgical History Surgery Procedure, Year, and Place: 1984 - Right shoulder surgery - torn bone cap. tonsillectomy and adenoidectomy as a child. stent placed in liver for jaundiced 07/21/17 [facility]. port placed 08/09 Hx Anesthesia Reactions: No Infectious Disease History: No Infectious Disease History: Denies: Hx Clostridium Difficile, Hx Hepatitis, Hx Human Immunodeficiency Virus (HIV), Hx of Known/Suspected MRSA, Hx Shingles, Hx Tuberculosis, Hx Known/ Suspected VRE, Hx Known/Suspected VRSA, History Other Infectious Disease, Traveled Outside the [place] in Last 30 Days - Family History Known Family History: Positive: Diabetes Negative: Cardiac Disease, Hypertension - Social History Alcohol Use: None Substance Use Type: Reports: None Smoking Status (MU): Never Smoked Tobacco Review of Systems Positive: Fever. Negative: Chills, Skin Diaphoresis ENT: Negative - Congestion Negative: Nasal Discharge Negative: Cough Genitourinary: Negative - Urinary symptoms Negative: dysuria Negative: Myalgia All Other Systems Reviewed And Are Negative: Yes Physical Exam - Summary Physical Exam Summary: Appearance: Well appearing, no pain distress. Skin: warm, hot to touch, diaphoretic, reflects adequate perfusion, no jaundice in skin Head/face: normal Eyes: EOMI, STEPHANIE ENT: normal, throat clear, moist mucous membranes. Neck: supple, non-tender Respiratory: CTA, breath sounds present Cardiovascular: Tachycardic, regular rhythm, sounds like S3 on the heart. pulses symmetrical Abdomen: non-tender, soft Bowel: present Musculoskeletal: normal, strength/ROM intact. No swelling of legs. Neuro: normal, sensory motor intact, A&Ox3 Triage Information Reviewed: Yes Vital Signs On Initial Exam: Initial Vitals Temp Pulse Resp BP Pulse Ox 101.8 F 143 22 132/83 95 09/20/17 22:23 09/20/17 22:23 09/20/17 22:23 09/20/17 22:23 09/20/17 22:23 Vital Signs Reviewed: Yes Diagnostics - Vital Signs Vital Signs Temp Pulse Resp BP Pulse Ox 09/20/17 22:23 101.8 F 143 22 132/83 95 - Laboratory Lab Results: Lab Results 09/20/17 09/20/17 09/20/17 Range/Units 23:00 23:00 23:00 WBC 10.3 (3.5-10.8) 10^3/ul RBC 4.80 (4.0-5.4) 10^6/ul Hgb 12.5 L (14.0-18.0) g/dl Hct 38 L (42-52) % MCV 78 L (80-94) fL MCH 26 L (27-31) pg MCHC 33 (31-36) g/dl RDW 17 H (10.5-15) % Plt Count 315 (150-450) 10^3/ul MPV 7 L (7.4-10.4) um3 Neut % (Auto) 85.1 H (38-83) % Lymph % (Auto) 8.3 L (25-47) % Saline % (Auto) 4.8 (0-7) % Eos % (Auto) 1.3 (0-6) % Baso % (Auto) 0.5 (0-2) % Absolute Neuts (auto) 8.8 H (1.5-7.7) 10^3/ul Absolute Lymphs (auto) 0.9 L (1.0-4.8) 10^3/ul Absolute Monos (auto) 0.5 (0-0.8) 10^3/ul Absolute Eos (auto) 0.1 (0-0.6) 10^3/ul Absolute Basos (auto) 0 (0-0.2) 10^3/ul Absolute Nucleated RBC 0 10^3/ul Nucleated RBC % 0 INR (Anticoag Therapy) 1.26 H (0.77-1.02) APTT 36.1 (26.0-36.3) seconds Sodium 132 L (133-145) mmol/L Potassium 3.8 (3.5-5.0) mmol/L Chloride 97 L (101-111) mmol/L Carbon Dioxide 27 (22-32) mmol/L Anion Gap 8 (2-11) mmol/L BUN 10 (6-24) mg/dL Creatinine 0.89 (0.67-1.17) mg/dL Est GFR ( Amer) 116.8 (>60) Est GFR (Non-Af Amer) 90.9 (>60) BUN/Creatinine Ratio 11.2 (8-20) Glucose 145 H (70-100) mg/dL Lactic Acid (0.5-2.0) mmol/L Calcium 9.8 (8.6-10.3) mg/dL Total Bilirubin 1.60 H (0.2-1.0) mg/dL AST 46 H (13-39) U/L ALT 29 (7-52) U/L Alkaline Phosphatase 396 H (34-104) U/L Troponin I 0.02 (<0.04) ng/mL C-Reactive Protein 39.46 H (< 5.00) mg/L Total Protein 8.4 (6.4-8.9) g/dL Albumin 3.7 (3.2-5.2) g/dL Globulin 4.7 H (2-4) g/dL Albumin/Globulin Ratio 0.8 L (1-3) Lipase 13 (11.0-82.0) U/L Influenza A (Rapid) (Negative) Influenza B (Rapid) (Negative) 09/20/17 09/20/17 Range/Units 23:00 23:40 WBC (3.5-10.8) 10^3/ul RBC (4.0-5.4) 10^6/ul Hgb (14.0-18.0) g/dl Hct (42-52) % MCV (80-94) fL MCH (27-31) pg MCHC (31-36) g/dl RDW (10.5-15) % Plt Count (150-450) 10^3/ul MPV (7.4-10.4) um3 Neut % (Auto) (38-83) % Lymph % (Auto) (25-47) % Saline % (Auto) (0-7) % Eos % (Auto) (0-6) % Baso % (Auto) (0-2) % Absolute Neuts (auto) (1.5-7.7) 10^3/ul Absolute Lymphs (auto) (1.0-4.8) 10^3/ul Absolute Monos (auto) (0-0.8) 10^3/ul Absolute Eos (auto) (0-0.6) 10^3/ul Absolute Basos (auto) (0-0.2) 10^3/ul Absolute Nucleated RBC 10^3/ul Nucleated RBC % INR (Anticoag Therapy) (0.77-1.02) APTT (26.0-36.3) seconds Sodium (133-145) mmol/L Potassium (3.5-5.0) mmol/L Chloride (101-111) mmol/L Carbon Dioxide (22-32) mmol/L Anion Gap (2-11) mmol/L BUN (6-24) mg/dL Creatinine (0.67-1.17) mg/dL Est GFR ( Amer) (>60) Est GFR (Non-Af Amer) (>60) BUN/Creatinine Ratio (8-20) Glucose (70-100) mg/dL Lactic Acid 1.8 (0.5-2.0) mmol/L Calcium (8.6-10.3) mg/dL Total Bilirubin (0.2-1.0) mg/dL AST (13-39) U/L ALT (7-52) U/L Alkaline Phosphatase (34-104) U/L Troponin I (<0.04) ng/mL C-Reactive Protein (< 5.00) mg/L Total Protein (6.4-8.9) g/dL Albumin (3.2-5.2) g/dL Globulin (2-4) g/dL Albumin/Globulin Ratio (1-3) Lipase (11.0-82.0) U/L Influenza A (Rapid) Negative (Negative) Influenza B (Rapid) Negative (Negative) Result Diagrams: 09/20/17 23:00 09/20/17 23:00 Lab Statement: Any lab studies that have been ordered have been reviewed, and results considered in the medical decision making process. - Radiology CXR Xray Interpretation: No Acute Changes - No acute findings. Radiology Interpretation Completed By: ED Physician - EKG 22:36 Cardiac Rate: Tachycardia EKG Rhythm: Sinus Tachycardia - 123 BPM EKG Interpretation: Normal axis, normal ST, Q wave in V3 Re-Evaluation - Re-Evaluation First Eval Change: Improved Course/Dx - Course Course Of Treatment: Pt with hx of colon CA with biliary obstruction and stent. Re-stented on Sunday, stopped abx on . Previously on Daptomycin and Levaquin. Tx fever, restarted abx. IV fluids. Admit for further. Oncology doesnt want additional imaging. LFTs near baseline. - Diagnoses Provider Diagnoses: Colon cancer, Biliary obstruction, Sepsis - Provider Notifications Discussed Care Of Patient With: Catrachito Sabillon Time Discussed With Above Provider: 00:00 Instructed by Provider To: Admit As Inpatient Discharge - Discharge Plan Condition: Fair Disposition: ADMITTED TO [facility] Referrals: Mina Acosta MD [Primary Care Provider] - The documentation as recorded by the Paresh saha Jennifer accurately reflects the service I personally performed and the decisions made by , Jensen Floyd MD.
--- NOTE | 2017-09-21 05:43 | HP ---
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 He was successfully treated with levfloxacin, but developed renewed fever with new blood CXs with new organisms resulting in the addition of daptomycin. Last sunday his intrahepatic stents were replaced. Weday was the last doses of levofloxacin & daptomycin. He now with returns of fever up to 101.8F. ED reviewed case with oncology who advised admission and restarting levofloxacin & daptomycin. PMedHx as above Ambulatory Orders Nursing to reconcile. Ibuprofen TAB* [Motrin TAB* 600 MG] 600 mg PO Q8H PRN #30 tab 08/22/16 Levofloxacin TAB* [Levaquin 500 Tab*] 500 mg PO DAILY 09/07/17 Ondansetron TAB* [Zofran 4 MG Tab*] 4 mg PO Q6H PRN 09/07/17 Prochlorperazine TAB* [Compazine Tab*] 10 mg PO Q6H PRN 09/07/17 Allergies Penicillins Allergy (Unknown, Verified 09/21/17 01:41) Unknown Reaction Details pt has a family member that had a reaction, but pt himself doesn't remember having a reaction - has gotten zosyn ok without reaction - 09/07/17 PSurgHx as above additionally R shoulder surgery SocHx: no tobacco, rare alcohol, no recreational drugs; lives with his & 2 children; [employer]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; 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 FamHx: Mother: passed in her early 60s of uncertain type CA ROS: as above, otherwise reviewed and all were negative vitals: Vital Signs Temp 38.4 C 09/21/17 04:23 Pulse 113 09/21/17 04:23 Resp 16 09/21/17 04:23 BP 112/61 09/21/17 04:23 Pulse Ox 95 09/21/17 04:23 Intake & Output 09/20/17 09/20/17 09/21/17 11:59 23:59 11:59 Intake Total 150 1000 Balance 150 1000 Weight 136.078 kg Intake: IV Fluids 150 1000 Constitutional: NAD, normally developed, obese white male HEENM: atraumatic; sclera/conjunctiva: anicteric/clear; hearing: clinically intact; oropharynx: clear, mucosa moist Neck: soft tissue: non-tender; thyroid: normal Pulmonary: clear to auscultation bilaterally, good aeration, no accessory muscle use CV: RR/RR, normal S1S2, no carotid bruit, no jugular venous distention, 2+ B DP/ PT, no edema Abdominal: soft, non-distended, mildly diffusely tender, no rebound/guarding/ rigidity, normo-active bowel sounds, no hepatosplenomegaly or masses, no costovertebral angle tenderness Musculoskeletal: general: grossly intact extremities x4 without tenderness to palpation; gait: stable Integumental: normal appearance and texture of exposed skin Psychiatric orientation: AA&O to PPS affect: worried/mildly anxious mood: cooperative/pleasant eye contact: fair to good content: reliable responses: timely insight: good Testing: Lab Results 09/20/17 09/20/17 09/20/17 Range/Units 23:00 23:00 23:00 WBC 10.3 (3.5-10.8) 10^3/ul RBC 4.80 (4.0-5.4) 10^6/ul Hgb 12.5 L (14.0-18.0) g/dl Hct 38 L (42-52) % MCV 78 L (80-94) fL MCH 26 L (27-31) pg MCHC 33 (31-36) g/dl RDW 17 H (10.5-15) % Plt Count 315 (150-450) 10^3/ul MPV 7 L (7.4-10.4) um3 Neut % (Auto) 85.1 H (38-83) % Lymph % (Auto) 8.3 L (25-47) % [place] % (Auto) 4.8 (0-7) % Eos % (Auto) 1.3 (0-6) % Baso % (Auto) 0.5 (0-2) % Absolute Neuts (auto) 8.8 H (1.5-7.7) 10^3/ul Absolute Lymphs (auto) 0.9 L (1.0-4.8) 10^3/ul Absolute Monos (auto) 0.5 (0-0.8) 10^3/ul Absolute Eos (auto) 0.1 (0-0.6) 10^3/ul Absolute Basos (auto) 0 (0-0.2) 10^3/ul Absolute Nucleated RBC 0 10^3/ul Nucleated RBC % 0 INR (Anticoag Therapy) 1.26 H (0.77-1.02) APTT 36.1 (26.0-36.3) seconds Sodium 132 L (133-145) mmol/L Potassium 3.8 (3.5-5.0) mmol/L Chloride 97 L (101-111) mmol/L Carbon Dioxide 27 (22-32) mmol/L Anion Gap 8 (2-11) mmol/L BUN 10 (6-24) mg/dL Creatinine 0.89 (0.67-1.17) mg/dL Est GFR ( Amer) 116.8 (>60) Est GFR (Non-Af Amer) 90.9 (>60) BUN/Creatinine Ratio 11.2 (8-20) Glucose 145 H (70-100) mg/dL Lactic Acid (0.5-2.0) mmol/L Calcium 9.8 (8.6-10.3) mg/dL Total Bilirubin 1.60 H (0.2-1.0) mg/dL AST 46 H (13-39) U/L ALT 29 (7-52) U/L Alkaline Phosphatase 396 H (34-104) U/L Troponin I 0.02 (<0.04) ng/mL C-Reactive Protein 39.46 H (< 5.00) mg/L Total Protein 8.4 (6.4-8.9) g/dL Albumin 3.7 (3.2-5.2) g/dL Globulin 4.7 H (2-4) g/dL Albumin/Globulin Ratio 0.8 L (1-3) Lipase 13 (11.0-82.0) U/L Influenza A (Rapid) (Negative) Influenza B (Rapid) (Negative) 09/20/17 09/20/17 09/21/17 Range/Units 23:00 23:40 02:35 WBC (3.5-10.8) 10^3/ul RBC (4.0-5.4) 10^6/ul Hgb (14.0-18.0) g/dl Hct (42-52) % MCV (80-94) fL MCH (27-31) pg MCHC (31-36) g/dl RDW (10.5-15) % Plt Count (150-450) 10^3/ul MPV (7.4-10.4) um3 Neut % (Auto) (38-83) % Lymph % (Auto) (25-47) % [place] % (Auto) (0-7) % Eos % (Auto) (0-6) % Baso % (Auto) (0-2) % Absolute Neuts (auto) (1.5-7.7) 10^3/ul Absolute Lymphs (auto) (1.0-4.8) 10^3/ul Absolute Monos (auto) (0-0.8) 10^3/ul Absolute Eos (auto) (0-0.6) 10^3/ul Absolute Basos (auto) (0-0.2) 10^3/ul Absolute Nucleated RBC 10^3/ul Nucleated RBC % INR (Anticoag Therapy) (0.77-1.02) APTT (26.0-36.3) seconds Sodium (133-145) mmol/L Potassium (3.5-5.0) mmol/L Chloride (101-111) mmol/L Carbon Dioxide (22-32) mmol/L Anion Gap (2-11) mmol/L BUN (6-24) mg/dL Creatinine (0.67-1.17) mg/dL Est GFR ( Amer) (>60) Est GFR (Non-Af Amer) (>60) BUN/Creatinine Ratio (8-20) Glucose (70-100) mg/dL Lactic Acid 1.8 1.0 (0.5-2.0) mmol/L Calcium (8.6-10.3) mg/dL Total Bilirubin (0.2-1.0) mg/dL AST (13-39) U/L ALT (7-52) U/L Alkaline Phosphatase (34-104) U/L Troponin I (<0.04) ng/mL C-Reactive Protein (< 5.00) mg/L Total Protein (6.4-8.9) g/dL Albumin (3.2-5.2) g/dL Globulin (2-4) g/dL Albumin/Globulin Ratio (1-3) Lipase (11.0-82.0) U/L Influenza A (Rapid) Negative (Negative) Influenza B (Rapid) Negative (Negative) ECG, personally reviewed: sinus tachycardia rate 123, no ischemia, inferior Q- waves; no comparison CXR, personally reviewed: no acute process, orthopedic screw R shoulder Impression: 51M HX colon CA metastatic to liver s/p intrahepatic stents x2 w/ replacement last Sunday; prior polymicrobial bacteremia treated with levofloxacin & daptomycin last doses Sunday presenting with return of fever & tachycardia DIAGNOSIS & PLAN Primary polymicrobial bacteremia : restart levofloxacin & daptomycin at previous doses : blood CXs : IVFs : supportive care colon CA metastatic to liver w/ intrahepatic obstruction s/p stents x2 replaced last Sunday : management per oncology : pain control : anti-emetics Admission Rational: inpatient for suspected bacteremia not expected to be adequately evaluated and treated w/i 48h to allow for discharge DVTp: heparin SQ Code Status: full HCP:
[2017-09-21] MEDS ORDERED: DAPTOMYCIN IVPB SCH ×2 (06:00→06:21)
[2017-09-21] MEDS ORDERED: NS 0.9% IVPB SCH ×2 (06:00→06:21)
[2017-09-21 06:36] LABS: Urine Appearance Clear; Urine Blood Negative (Negative); Urine Color Amber; Urine Ketones Trace (Negative); Urine Protein Negative (Negative); Urine Specific Gravity 1.019 (1.010-1.030); Urine Urobilinogen Positive (Negative)
[2017-09-21 06:40] LABS: ABS Basophils 0.1 10^3/ul (0-0.2); ABS Eosinophils 0.1 10^3/ul (0-0.6); ABS Lymphocytes 1.1 10^3/ul (1.0-4.8); ABS Monocytes 0.8 10^3/ul (0-0.8); ABS Neutrophils 7.5 10^3/ul (1.5-7.7); ABS Nucleated RBC 0 10^3/ul; Eosinophil % 0.6 % (0-6); Hematocrit 36 % (42-52); Hemoglobin 11.8 g/dl (14.0-18.0); Lymphocyte % 11.9 % (25-47); Mean Corpuscular HGB Conc 33 g/dl (31-36); Mean Corpuscular Hemoglobin 26 pg (27-31); Mean Corpuscular Volume 78 fL (80-94); Mean Platelet Volume 7 um3 (7.4-10.4); Nucleated Red Blood Cells % 0; Platelet Count 211 10^3/ul (150-450); Red Blood Count 4.57 10^6/ul (4.0-5.4); Red Cell Distribution Width 17 % (10.5-15); White Blood Count 9.5 10^3/ul (3.5-10.8)
--- NOTE | 2017-09-21 07:31 | RAD ---
HISTORY: Fever COMPARISONS: September 07, 2017 VIEWS: 2: frontal portable view of the chest at 10:47 PM FINDINGS: LINES AND TUBES: A left-sided chest port is noted with the tip overlying the superior vena cava. CARDIOMEDIASTINAL SILHOUETTE: The cardiomediastinal silhouette is normal for portable technique. PLEURA: The costophrenic angles are sharp. No pleural abnormalities are noted. LUNG PARENCHYMA: The lungs are clear. ABDOMEN: The upper abdomen is clear. There is no subphrenic gas. BONES AND SOFT TISSUES: There is postsurgical change to the right scapula. IMPRESSION: NO ACTIVE CARDIOPULMONARY DISEASE.
[2017-09-21] MEDS ORDERED: Ondansetron TAB* 4 MG PO PRN (09:18)
[2017-09-21] MEDS ORDERED: Ibuprofen TAB* 600 MG PO PRN (09:18)
[2017-09-21] MEDS: Prochlorperazine TAB* 10 MG PO PRN (10:07)
[2017-09-21] MEDS: Enoxaparin(*) 40 MG/0.4 ML SYR SUBCUT SCH (10:08)
[2017-09-21] MEDS: Acetaminophen TAB* 325 MG PO PRN (10:11)
[2017-09-21] MEDS ORDERED: ZOSYN 3.375 GM x ONE DOSE over 30 miuntes IVPB ×2 (11:00)
[2017-09-21] MEDS ORDERED: Iohexol 300* (CONTRAST) 10 ML SDV IV ONE (12:40)
--- NOTE | 2017-09-21 13:42 | RAD ---
Indication: Fever, biliary stent. Contrast: Administered 150.3 ml of Contrast -- mg/ml CT of the abdomen and pelvis was performed after oral and IV contrast administration. Coronal and sagittal reconstructed images were obtained. Comparison is made with previous exam dated August 29, 2017. The lung bases demonstrates masses in the lung bases consistent with metastatic disease unchanged from previous exam. The heart demonstrates no pericardial effusion. The liver is normal in size. There are multiple low density lesions in the liver which appear to be solid lesions as they are intermediate in density. These appear to be similar to that present on August 29, 2017. No evidence of ring-enhancing lesions are noted specifically. There is a biliary stent in place. The left biliary system appears to be decompressed. There is suggestion of dilated right sided intrahepatic ducts. Pericholecystic fluid is noted. The spleen is normal in size. There is a retrocaval lymph node which appears to be similar in size seen on previous exam measuring up to 13 mm. There is a left adrenal nodule measuring 16 mm which is unchanged from previous exam. The kidneys demonstrate symmetric nephrograms without focal lesions. No retroperitoneal lymphadenopathy is noted. The spleen is normal in size. The pancreas demonstrates no mass or pancreatic ductal dilatation. Small bowel demonstrates no abnormal dilatation. The colon is filled with stool. CT of the pelvis demonstrates no retroperitoneal or pelvic lymphadenopathy. The urinary bladder is otherwise unremarkable. Prostate and urinary bladder are unremarkable. No hernias are noted. The colon is filled with stool. There is narrowing of the colon which is persistent at the rectosigmoid junction. Underlying mass is not excluded although this may also represent stricture. There is adjacent lymph nodes noted to the mass superiorly. No evidence of colonic mild retroperitoneal lymph nodes are noted just adjacent to the application aorta measuring up to 6 mm. IMPRESSION: Hepatic lesions are unchanged from previous exam consistent with metastatic disease biliary stent is in place. The left biliary tree is decompressed. Persistent dilatation of the right biliary tree is present. Sigmoid colon mass as well as retroperitoneal and mesenteric lymphadenopathy is unchanged. Pulmonary lesions are unchanged consistent with pulmonary metastatic disease
[2017-09-21] MEDS: Piperacillin/Tazobac ADVAN(*) 3.375 GM in NS 0.9% 100 ML* 100 ML IVPB SCH ×2 (15:30→23:27)
--- NOTE | 2017-09-21 16:03 | CONS ---
CONSULTATION REPORT: DATE OF CONSULT: 09/21/17 REQUESTING PROVIDER: JAROCHO Graves CONSULTING SERVICE: Infectious Disease. REASON FOR CONSULTATION: Fever. IMPRESSION: 1. Fever about 2 days after stopping daptomycin infusion and Levaquin pills, which were being given for Enterococcus faecium bacteremia and then a previous Gram- negative polymicrobial bacteremia, felt to be related to partial biliary obstruction. He had had his hepatic duct stents changed out at [facility] early in the week. His fever did not come on after a recent port use, so that seems a little bi t less likely and I suspect more likely that this is related to partial biliary obstruction. Influen za PCR negative. Urinalysis negative. Blood cultures are pending. 2. Metastatic colon cancer with biliary obstruction, treated with one round of chemotherapy and bili tony stent placement. They were changed out earlier in the week when he was found to have obstruction of the hepatic duct stent. 3. PENICILLIN allergy that was tolerated Zosyn at his last admission. 4. Obesity. 5. Transthoracic echocardiogram. RECOMMENDATIONS: 1. Stop daptomycin and Levaquin. We will restart Zosyn as he has also tolerated daptomycin poorly. 2. CT abdomen and pelvis with contrast which I ordered to rule out associated liver abscess. HISTORY OF PRESENT ILLNESS: This is a 51-year-old male with metastatic colon cancer that included bi liary obstruction, treated with hepatic duct stents, that were changed out last week. Recently, he h as had 08/25/17 blood cultures grew Klebsiella and Citrobacter and Enterobacter, treated with Levaqui n for 2 weeks, then on 09/07/17 he returned with fever and blood cultures grew Enterococcus faecium, treated with daptomycin for 2 weeks, he felt well while on the antibiotics except for some nausea and malaise during and after daptomycin infusion. He was at [facility] early in the week, had the stents r emoved and new stents placed in hepatic ducts because of recurrence of obstruction. He has had no lanre int pain. No headache, diarrhea, abdominal pain or nausea. He had a dose of daptomycin this morning , had some malaise at the end of the infusion. PAST MEDICAL HISTORY: 1. Metastatic colon cancer with biliary obstruction, treated with ERCP and biliary stents in hepatic duct which was changed out last week. 2. Obesity. MEDICATIONS: 1. Daptomycin 500 mg a day. 2. Levaquin 750 mg IV daily. 3. Prochlorperazine. 4. Ibuprofen as needed. 5. Enoxaparin daily. 6. Tylenol. ALLERGIES: PENICILLIN had never had reaction, but was reported by his parents. FAMILY HISTORY: No recurrent infections. SOCIAL HISTORY: He lives with his at the [facility]. He has no travel or sick contacts. REVIEW OF SYSTEMS: All negative except for 14-point review of systems except as noted above. PHYSICAL EXAM: Vital Signs: Temperature is 38.5, heart rate 110, respiratory rate 20, blood pressur e 117/81, oxygen saturation 97% on room air. In general, he is awake, not in distress. He is a lit tle bit diaphoretic. Neurologic: He is oriented x3. Follows all commands. Moves all his extremiti es. Cranial nerves II through XII are intact. HEENT: There is no conjunctival hemorrhage. Orophar ynx without lesions. Neck: Supple without mass. There is no cervical, supraclavicular, inguinal, a xillary, epitrochlear lymphadenopathy. Heart is regular and tachycardic without murmurs. Lungs are clear to auscultation bilaterally. Abdomen: Soft, nontender, nondistended. There are bowel sounds present. There is no right upper quadrant tenderness. Skin: There are no rash or splinter hemorrha ges. Musculoskeletal: There is no spine tenderness to palpation or joint synovitis. LABORATORY DATA: Creatinine 0.9, alkaline phosphatase 396, CRP 39, white blood cell count 9, hemoglo bin 11, platelets 211. Please see impressions and recommendations outlined above, which I have discussed with JAROCHO Graevs. Thank you for asking me to see Mr. Allen in consultation. [id number]/[facility] #: [id number]
--- NOTE | 2017-09-21 17:41 | ECHO ---
Patient: RACHID LINDQUIST [facility] Rec#: [id number] : 1965 Date: 09/21/2017 Age: 51y Height: 188 cm / 74.0 in Weight: 135.1 kg / 297.8 lbs Sex: M BSA: 2.6 Room#: 413 Admit Date#: 09/21/2017 Type: Inpatient Referring: Fernando Pan MD Reading: Jaziel Ro MD Sales Engineer Account Manager: Yoselin Cheng RN RDCS CC: Mina Acosta MD Transthoracic Echocardiogram Indication: Bacteremia BP: 139/79 HR: 74 Rhythm: NSR Findings History: Colon cancer with liver metastasis, S/P replacement of intrahepatic stents, polymicrobial bacteremia Technical Comments: The study is technically limited due to patient body habitus. Left Ventricle: The left ventricular chamber size is normal. Mild concentric left ventricular hypertrophy is observed. Global left ventricular wall motion and contractility are within normal limits. There is normal left ventricular systolic function. The estimated ejection fraction is 55-60%. Normal left ventricular diastolic filling is observed. Left Atrium: The left atrium is mildly dilated. Right Ventricle: The right ventricular cavity size is normal. The right ventricular global systolic function is normal. Right Atrium: The right atrium is mildly dilated. Aortic Valve: The aortic valve is trileaflet. The aortic valve leaflets are mildly thickened. There is no evidence of aortic regurgitation. There is no evidence of aortic stenosis. Mitral Valve: The mitral valve leaflets are mildly thickened. There is no evidence of mitral regurgitation. Tricuspid Valve: The tricuspid valve leaflets are normal. There is trace tricuspid regurgitation. Unable to estimate the right ventricular systolic pressure. Pulmonic Valve: The pulmonic valve structure is not well visualized. There is a trace pulmonic regurgitation. There is no pulmonic stenosis. Pericardium: There is no significant pericardial effusion. A pericardial fat pad is visualized. Aorta: There is no dilatation of the ascending aorta. There is no dilatation of the aortic arch. There is no dilation of the aortic root. Pulmonary Artery: The main pulmonary artery is not well visualized. Venous: The inferior vena cava is dilated. There is a greater than 50% respiratory change in the inferior vena cava dimension. Conclusions There is normal left ventricular systolic function. The estimated ejection fraction is 55-60%. Global left ventricular wall motion and contractility are within normal limits. The left ventricular chamber size is normal. Mild concentric left ventricular hypertrophy is observed. The left atrium is mildly dilated. The right atrium is mildly dilated. Functionally benign heart valves. No obvious intra-cardiac vegetations seen on this transthoracic echocardiogram. There is no prior echocardiogram available to compare with at this time. If concern for intra-cardiac vegetation remains, consider transesophageal echocardiogram. Measurements Name Value Normal Range RVDdMajor (2D) 4.3 cm (2.2 - 4.4) RAd ISD 4CH 5.3 cm (3.4 - 4.9) RA (A4C)W 3.8 cm (2.9 - 4.6) IVSd (2D) 1.2 cm (0.6 - 1) LVPWd (2D) 1.2 cm (0.6 - 1) LVIDd (2D) 4.3 cm (3.6 - 5.4) LVIDs (2D) 3.3 cm - LV FS (2D) 23 % (25 - 45) Aortic Annulus 2.2 cm (1.4 - 2.6) Ao root diameter (2D) 3.2 cm (2.1 - 3.5) Ascending Ao 3 cm (2.1 - 3.4) Aortic arch 3 cm (1.8 - 3.4) LA dimension (AP) 2D 3.9 cm (2.3 - 3.8) LAd ISD 4CH 5.5 cm (2.9 - 5.3) LA ISD 4CH W 4.9 cm (2.5 - 4.5) Name Value Normal Range MV E-wave Vmax 0.84 m/sec - MV deceleration time 269 msec - MV A-wave Vmax 0.69 m/sec - MV E:A ratio 1.2 ratio - LV septal e' Vmax 0.07 m/sec - LV lateral e' Vmax 0.11 m/sec - LV E:e' septal ratio 12 ratio - LV E:e' lateral ratio 7.6 ratio - Name Value Normal Range AV Vmax 1.2 m/sec - AV VTI 21.5 cm - AV peak gradient 6 mmHg - AV mean gradient 3.5 mmHg - LVOT Vmax 1 m/sec - LVOT VTI 17.5 cm - LVOT peak gradient 3.9 mmHg - LVOT mean gradient 2.3 mmHg - YADY Vmax 1.1 m/sec - Name Value Normal Range IVC diameter 2.2 cm - Name Value Normal Range PV Vmax 0.86 m/sec -
[2017-09-22] MEDS ORDERED: Levofloxacin 750 MG IVPREMIX(* 750 MG/150 ML BAG IVPB SCH (00:01)
[2017-09-22 05:18] LABS: ABS Basophils 0.1 10^3/ul (0-0.2); ABS Eosinophils 0.5 10^3/ul (0-0.6); ABS Lymphocytes 1.5 10^3/ul (1.0-4.8); ABS Monocytes 0.6 10^3/ul (0-0.8); ABS Neutrophils 3.7 10^3/ul (1.5-7.7); ABS Nucleated RBC 0 10^3/ul; Eosinophil % 8.2 % (0-6); Hematocrit 32 % (42-52); Hemoglobin 10.2 g/dl (14.0-18.0); Lymphocyte % 23.4 % (25-47); Mean Corpuscular HGB Conc 32 g/dl (31-36); Mean Corpuscular Hemoglobin 25 pg (27-31); Mean Corpuscular Volume 79 fL (80-94); Mean Platelet Volume 7 um3 (7.4-10.4); Nucleated Red Blood Cells % 0; Platelet Count 174 10^3/ul (150-450); Red Blood Count 4.01 10^6/ul (4.0-5.4); Red Cell Distribution Width 17 % (10.5-15); White Blood Count 6.3 10^3/ul (3.5-10.8)
[2017-09-22] MEDS: Piperacillin/Tazobac ADVAN(*) 3.375 GM in NS 0.9% 100 ML* 100 ML IVPB SCH ×3 (07:01→23:01)
--- NOTE | 2017-09-22 08:07 | PN ---
Progress Note - Progress Note Date of Service: 09/22/17 SOAP: Subjective: feels very good this morning. frustrated by this whole process but in understanding of why things are being done. no fevers since starting zosyn. denies N/V/D or abdominal pain Objective: Vital Signs Temp Pulse Resp BP Pulse Ox 98.6 F 81 20 132/77 95 09/22/17 07:26 09/22/17 07:26 09/22/17 07:26 09/22/17 07:26 09/22/17 07:26 obese M in nad perr eomi op moist, no thrush port clean cta s1 s2 nl obese nt +bs no le edema A+O x 3, grossly nonfocal neurological exam Laboratory Results - last 24 hr 09/22/17 05:00 WBC 6.3 RBC 4.01 Hgb 10.2 L Hct 32 L MCV 79 L MCH 25 L MCHC 32 RDW 17 H Plt Count 174 MPV 7 L Neut % (Auto) 58.0 Lymph % (Auto) 23.4 L [place] % (Auto) 9.4 H Eos % (Auto) 8.2 H Baso % (Auto) 1.0 Absolute Neuts (auto) 3.7 Absolute Lymphs (auto) 1.5 Absolute Monos (auto) 0.6 Absolute Eos (auto) 0.5 Absolute Basos (auto) 0.1 Absolute Nucleated RBC 0 Nucleated RBC % 0 Acetaminophen (Tylenol Tab*) 650 mg PO Q6H PRN PRN Reason: FEVER/PAIN Last Admin: 09/21/17 10:11 Dose: 650 mg Enoxaparin Sodium (Lovenox(*)) 40 mg SUBCUT Q24H [facility] Last Admin: 09/21/17 10:08 Dose: 40 mg Heparin Sodium (Porcine) (Heparin Flush Port (Ivad)) 5 ml FLUSH DAILY [facility] PRN Reason: Protocol Piperacillin Sod/Tazobactam (Sod 3.375 gm/ Sodium Chloride) 100 mls @ 25 mls/ hr IVPB Q8H [facility] Last Admin: 09/22/17 07:01 Dose: 25 mls/hr Ibuprofen (Motrin Tab*) 600 mg PO Q8H PRN PRN Reason: FEVER/PAIN Ondansetron HCl (Zofran Tab*) 4 mg PO Q6H PRN PRN Reason: NAUSEA Last Admin: 09/21/17 23:27 Dose: 4 mg Prochlorperazine (Compazine Tab*) 10 mg PO Q6H PRN PRN Reason: NAUSEA Last Admin: 09/21/17 10:07 Dose: [address] A/P: personally reviewed, my impression: stable liver mets, no clear abscesses, dilated right biliary tree cultures ntd Assessment: 51 yo M w metastatic CRC sp 1 cycle of palliative chemotherapy with course c/b polymicrobial infection presumably from biliary stent, now with fevers 3 dys after stent change. defervesced on zosyn. Plan: -appreciate ID consultation. unclear to me if new stent will need to be changed or if we can put on suppressive abx through chemotherapy (or both) -cont iv zosyn through , will address on Sunday questions above -trend LFTs -cont sc lovenox full code
[2017-09-22 08:21] LABS: EGFR Non-African American 114.2 (>60)
[2017-09-22] MEDS: Enoxaparin(*) 40 MG/0.4 ML SYR SUBCUT SCH (10:23)
[2017-09-22] MEDS ORDERED: Vancomycin 1500 MG IV - x ONCE IVPB ONE ×2 (20:00)
[2017-09-23 05:37] LABS: ABS Basophils 0.1 10^3/ul (0-0.2); ABS Eosinophils 0.6 10^3/ul (0-0.6); ABS Lymphocytes 1.2 10^3/ul (1.0-4.8); ABS Monocytes 0.6 10^3/ul (0-0.8); ABS Neutrophils 3.1 10^3/ul (1.5-7.7); ABS Nucleated RBC 0 10^3/ul; Eosinophil % 10.5 % (0-6); Hematocrit 30 % (42-52); Hemoglobin 9.9 g/dl (14.0-18.0); Lymphocyte % 21.9 % (25-47); Mean Corpuscular HGB Conc 33 g/dl (31-36); Mean Corpuscular Hemoglobin 26 pg (27-31); Mean Corpuscular Volume 78 fL (80-94); Mean Platelet Volume 7 um3 (7.4-10.4); Nucleated Red Blood Cells % 0; Platelet Count 153 10^3/ul (150-450); Red Blood Count 3.82 10^6/ul (4.0-5.4); Red Cell Distribution Width 17 % (10.5-15); White Blood Count 5.6 10^3/ul (3.5-10.8)
[2017-09-23 06:01] LABS: EGFR Non-African American 143.2 (>60)
[2017-09-23] MEDS: Piperacillin/Tazobac ADVAN(*) 3.375 GM in NS 0.9% 100 ML* 100 ML IVPB SCH ×3 (06:56→22:52)
--- NOTE | 2017-09-23 07:57 | PN ---
Progress Note - Progress Note Date of Service: 09/23/17 SOAP: Subjective: feels good. no fevers. 2/4 blood cultures + (both aerobic bottles) for gram positive cocci not staph. given one dose of vanco overnight pending this. Objective: Vital Signs Temp Pulse Resp BP Pulse Ox 98.7 F 75 18 135/70 98 09/23/17 02:39 09/23/17 07:35 09/23/17 07:56 09/23/17 07:35 09/23/17 07:35 lying flat in nad perr eomi op moist cta bl s1 s2 nl obese nt+Bs no le edema A+Ox 3 nonfocal Laboratory Results - last 24 hr 09/22/17 09/23/17 09/23/17 07:56 05:15 05:15 WBC 5.6 RBC 3.82 L Hgb 9.9 L Hct 30 L MCV 78 L MCH 26 L MCHC 33 RDW 17 H Plt Count 153 MPV 7 L Neut % (Auto) 56.3 Lymph % (Auto) 21.9 L [place] % (Auto) 10.4 H Eos % (Auto) 10.5 H Baso % (Auto) 0.9 Absolute Neuts (auto) 3.1 Absolute Lymphs (auto) 1.2 Absolute Monos (auto) 0.6 Absolute Eos (auto) 0.6 Absolute Basos (auto) 0.1 Absolute Nucleated RBC 0 Nucleated RBC % 0 Sodium 136 136 Potassium 3.8 3.7 Chloride 102 103 Carbon Dioxide 29 28 Anion Gap 5 5 BUN 10 9 Creatinine 0.73 0.60 L Est GFR ( Amer) 146.9 184.2 Est GFR (Non-Af Amer) 114.2 143.2 BUN/Creatinine Ratio 13.7 15.0 Glucose 94 95 Calcium 8.9 8.9 Total Bilirubin 1.30 H 1.10 H Direct Bilirubin 0.70 H Indirect Bilirubin 0.6 AST 30 28 ALT 22 19 Alkaline Phosphatase 267 H 247 H Total Protein 6.7 6.7 Albumin 2.9 L 2.9 L Globulin 3.8 3.8 Albumin/Globulin Ratio 0.8 L 0.8 L Acetaminophen (Tylenol Tab*) 650 mg PO Q6H PRN PRN Reason: FEVER/PAIN Last Admin: 09/21/17 10:11 Dose: 650 mg Enoxaparin Sodium (Lovenox(*)) 40 mg SUBCUT Q24H [facility] Last Admin: 09/22/17 10:23 Dose: 40 mg Heparin Sodium (Porcine) (Heparin Flush Port (Ivad)) 5 ml FLUSH DAILY [facility] PRN Reason: Protocol Last Admin: 09/22/17 11:43 Dose: 5 ml Piperacillin Sod/Tazobactam (Sod 3.375 gm/ Sodium Chloride) 100 mls @ 25 mls/ hr IVPB Q8H [facility] Last Admin: 09/23/17 06:56 Dose: 25 mls/hr Ibuprofen (Motrin Tab*) 600 mg PO Q8H PRN PRN Reason: FEVER/PAIN Ondansetron HCl (Zofran Tab*) 4 mg PO Q6H PRN PRN Reason: NAUSEA Last Admin: 09/21/17 23:27 Dose: 4 mg Prochlorperazine (Compazine Tab*) 10 mg PO Q6H PRN PRN Reason: NAUSEA Last Admin: 09/21/17 10:07 Dose: 10 mg Assessment: 51 yo M w metastatic CRC sp 1 cycle of palliative chemotherapy with course c/b polymicrobial infection presumably from biliary stent, now with fevers 3 dys after stent change. cultures from 2 sets growing gram + cocci, not staph. I suspect that this is his prior enterobacter species. I did give him one dose of vanco over night but I think we can hold off at this point and keep on zosyn. Plan: -unclear to me if new stent will need to be changed or if we can put on suppressive abx through chemotherapy (or both) -cont iv zosyn through , will address on Sunday questions above with ID -repeat cultures today -cont sc lovenox full code
[2017-09-23] MEDS: Enoxaparin(*) 40 MG/0.4 ML SYR SUBCUT SCH (09:28)
[2017-09-23] MEDS: Prochlorperazine TAB* 10 MG PO PRN (15:15)
[2017-09-23] MEDS: Acetaminophen TAB* 325 MG PO PRN ×2 (16:21→23:16)
[2017-09-23] MEDS: NS 0.9% 1000 ML* 1,000 ML IV SCH (17:00)
--- NOTE | 2017-09-23 17:06 | RAD ---
INDICATION: Fever COMPARISON: September 20, 2017 TECHNIQUE: PA and lateral dual-energy views were obtained. FINDINGS: Bones/Soft Tissues: There are no acute bony findings. There is left-sided [id number] catheter terminating in the superior vena cava Cardiomediastinal: The correct silhouette is mild prominent, unchanged. Lungs: There are no infiltrates. Pleura: There are no pleural effusions. Other: None IMPRESSION: NO ACTIVE DISEASE.
[2017-09-23 19:48] LABS: Urine Appearance Clear; Urine Blood Negative (Negative); Urine Color Yellow; Urine Ketones Negative (Negative); Urine Protein Negative (Negative); Urine Specific Gravity 1.018 (1.010-1.030); Urine Urobilinogen Positive (Negative)
[2017-09-24] MEDS: NS 0.9% 1000 ML* 1,000 ML IV SCH ×2 (05:32→21:28)
[2017-09-24 05:47] LABS: ABS Basophils 0.1 10^3/ul (0-0.2); ABS Eosinophils 0.9 10^3/ul (0-0.6); ABS Lymphocytes 1.4 10^3/ul (1.0-4.8); ABS Monocytes 0.6 10^3/ul (0-0.8); ABS Neutrophils 3.3 10^3/ul (1.5-7.7); ABS Nucleated RBC 0 10^3/ul; Eosinophil % 14.1 % (0-6); Hematocrit 31 % (42-52); Hemoglobin 10.3 g/dl (14.0-18.0); Lymphocyte % 21.8 % (25-47); Mean Corpuscular HGB Conc 33 g/dl (31-36); Mean Corpuscular Hemoglobin 26 pg (27-31); Mean Corpuscular Volume 78 fL (80-94); Mean Platelet Volume 7 um3 (7.4-10.4); Nucleated Red Blood Cells % 0; Platelet Count 198 10^3/ul (150-450); Red Blood Count 4.02 10^6/ul (4.0-5.4); Red Cell Distribution Width 17 % (10.5-15); White Blood Count 6.2 10^3/ul (3.5-10.8)
[2017-09-24 06:05] LABS: EGFR Non-African American 151.9 (>60)
[2017-09-24] MEDS: Piperacillin/Tazobac ADVAN(*) 3.375 GM in NS 0.9% 100 ML* 100 ML IVPB SCH (06:38)
[2017-09-24] MEDS: Enoxaparin(*) 40 MG/0.4 ML SYR SUBCUT SCH (10:37)
--- NOTE | 2017-09-24 11:23 | PN ---
Progress Note - Progress Note Date of Service: 09/24/17 SOAP: Subjective: [This is a 51 yo male with metastatic CRC admitted with recurrent bacteremia. Blood cultures from admission grew a nearly pansensitive Enterococcus, which is identical to his last admission mid Aug. Patient had one documented fever yesterday to 101.7F, which was his first since admission. Repeat bcx from yesterday is negative for growth at 24h. He denies new symptoms of abd pain, n/v, cough, CP, etc. He reports some persistent fatigue, which was somewhat worse yesterday.] Objective: [ Vital Signs: Temp Pulse Resp BP Pulse Ox 98.2 F 77 16 142/78 97 09/24/17 07:32 09/24/17 07:32 09/24/17 08:00 09/24/17 07:32 09/24/17 07:32 Acetaminophen (Tylenol Tab*) 650 mg PO Q6H PRN PRN Reason: FEVER/PAIN Last Admin: 09/23/17 23:16 Dose: 650 mg Enoxaparin Sodium (Lovenox(*)) 40 mg SUBCUT Q24H [facility] Last Admin: 09/24/17 10:37 Dose: 40 mg Heparin Sodium (Porcine) (Heparin Flush Port (Ivad)) 5 ml FLUSH DAILY [facility] PRN Reason: Protocol Last Admin: 09/24/17 10:26 Dose: Not Given Sodium Chloride (Ns 0.9% 1000 Ml*) 1,000 mls @ 75 mls/hr IV PER RATE [facility] Last Admin: 09/24/17 05:32 Dose: 75 mls/hr Linezolid (Zyvox 600 Mg Ivpremix(*)) 600 mg in 300 mls @ 300 mls/hr IVPB Q12H [facility] Ibuprofen (Motrin Tab*) 600 mg PO Q8H PRN PRN Reason: FEVER/PAIN Ondansetron HCl (Zofran Tab*) 4 mg PO Q6H PRN PRN Reason: NAUSEA Last Admin: 09/21/17 23:27 Dose: 4 mg Prochlorperazine (Compazine Tab*) 10 mg PO Q6H PRN PRN Reason: NAUSEA Last Admin: 09/23/17 15:15 Dose: 10 mg Laboratory Results - last 24 hr 09/23/17 09/23/17 09/24/17 16:10 17:00 05:30 WBC 6.2 RBC 4.02 Hgb 10.3 L Hct 31 L MCV 78 L MCH 26 L MCHC 33 RDW 17 H Plt Count 198 MPV 7 L Neut % (Auto) 53.9 Lymph % (Auto) 21.8 L [place] % (Auto) 9.3 H Eos % (Auto) 14.1 H Baso % (Auto) 0.9 Absolute Neuts (auto) 3.3 Absolute Lymphs (auto) 1.4 Absolute Monos (auto) 0.6 Absolute Eos (auto) 0.9 H Absolute Basos (auto) 0.1 Absolute Nucleated RBC 0 Nucleated RBC % 0 Sodium Potassium Chloride Carbon Dioxide Anion Gap BUN Creatinine Est GFR ( Amer) Est GFR (Non-Af Amer) BUN/Creatinine Ratio Glucose Lactic Acid 1.1 Calcium Total Bilirubin AST ALT Alkaline Phosphatase Total Protein Albumin Globulin Albumin/Globulin Ratio Urine Color Yellow Urine Appearance Clear Urine pH 5.0 Ur Specific [place] 1.018 Urine Protein Negative Urine Ketones Negative Urine Blood Negative Urine Nitrate Negative Urine Bilirubin Negative Urine Urobilinogen Positive A Ur Leukocyte Esterase Negative Urine Glucose Negative 09/24/17 05:30 WBC RBC Hgb Hct MCV MCH MCHC RDW Plt Count MPV Neut % (Auto) Lymph % (Auto) [place] % (Auto) Eos % (Auto) Baso % (Auto) Absolute Neuts (auto) Absolute Lymphs (auto) Absolute Monos (auto) Absolute Eos (auto) Absolute Basos (auto) Absolute Nucleated RBC Nucleated RBC % Sodium 135 Potassium 3.7 Chloride 101 Carbon Dioxide 29 Anion Gap 5 BUN 7 Creatinine 0.57 L Est GFR ( Amer) 195.4 Est GFR (Non-Af Amer) 151.9 BUN/Creatinine Ratio 12.3 Glucose 93 Lactic Acid Calcium 8.9 Total Bilirubin 1.30 H AST 24 ALT 18 Alkaline Phosphatase 224 H Total Protein 7.0 Albumin 3.0 L Globulin 4.0 Albumin/Globulin Ratio 0.8 L Urine Color Urine Appearance Urine pH Ur Specific [place] Urine Protein Urine Ketones Urine Blood Urine Nitrate Urine Bilirubin Urine Urobilinogen Ur Leukocyte Esterase Urine Glucose Gen: Somewhat fatigued appearing middle aged obese gentleman in NAD, accompanied by his HEENT: NCAT CV: RRR, no m/r/g Resp: Lungs CTA Abd: soft, non TTP Ext: No edema Skin: no rashes] Assessment: [This is a 51 yo gentleman with metastatic CRC who has been able to complete only one cycle of chemotherapy, admitted with recurrent bacteremia after exchange of biliary stents.] Plan: [1. Enterococcus bacteremia - source is likely biliary stasis proximal to biliary stents. CT demonstrates some dilitation of proximal ducts, but Tbili remains near normal. Source of infection may also be his port as blood cultures have demonstrated growth of the same species as prior admission. Appreciate input from ID who has recommended removal of port and ISHMAEL, TTE was neg for vegetations or other valvular pathology. Plan to transition to Linezolid at this time per ID recommendation, which will likely continue as an outpatient 2. Metastatic CRC - treatment has been delayed due to recurrent infection. Plan to resume chemo following discharge] 3. DVT prophylaxis - SQ Lovenox
--- NOTE | 2017-09-24 11:26 | PN ---
Progress Note - Progress Note Date of Service: 09/24/17 SOAP: Subjective: CC: fever HPI: 51 year old man with fever 2 days after stopping dapto for E. faecium bacteremia; had biliary stents replaced last week; no abd pain. Today he has more energy. Had a fever yesterday. No rash or diarrhea. Objective: Vital Signs Temp 36.8 C 09/24/17 07:32 Pulse 77 09/24/17 07:32 Resp 16 09/24/17 08:00 BP 142/78 09/24/17 07:32 Pulse Ox 97 09/24/17 07:32 Intake & Output 09/23/17 09/24/17 09/24/17 18:59 06:59 18:59 Intake Total 2370 1095 360 Output Total 200 Balance 2370 895 360 Intake: IV Fluids 995 NS 995 IVPB 100 Zosyn 100 Oral 2370 0 360 Output: Urine 200 Other: # Bowel Movements 0 Gen:awake, no distress HEENT:thrush Heart:RRR no murmur Lungs:CTA BL Abd:+BS NTND soft Skin: no rash MSK: no spine tenderness Laboratory Results - last 24 hr 09/23/17 09/23/17 09/24/17 16:10 17:00 05:30 WBC 6.2 RBC 4.02 Hgb 10.3 L Hct 31 L MCV 78 L MCH 26 L MCHC 33 RDW 17 H Plt Count 198 MPV 7 L Neut % (Auto) 53.9 Lymph % (Auto) 21.8 L [place] % (Auto) 9.3 H Eos % (Auto) 14.1 H Baso % (Auto) 0.9 Absolute Neuts (auto) 3.3 Absolute Lymphs (auto) 1.4 Absolute Monos (auto) 0.6 Absolute Eos (auto) 0.9 H Absolute Basos (auto) 0.1 Absolute Nucleated RBC 0 Nucleated RBC % 0 Sodium Potassium Chloride Carbon Dioxide Anion Gap BUN Creatinine Est GFR ( Amer) Est GFR (Non-Af Amer) BUN/Creatinine Ratio Glucose Lactic Acid 1.1 Calcium Total Bilirubin AST ALT Alkaline Phosphatase Total Protein Albumin Globulin Albumin/Globulin Ratio Urine Color Yellow Urine Appearance Clear Urine pH 5.0 Ur Specific [place] 1.018 Urine Protein Negative Urine Ketones Negative Urine Blood Negative Urine Nitrate Negative Urine Bilirubin Negative Urine Urobilinogen Positive A Ur Leukocyte Esterase Negative Urine Glucose Negative 09/24/17 05:30 WBC RBC Hgb Hct MCV MCH MCHC RDW Plt Count MPV Neut % (Auto) Lymph % (Auto) [place] % (Auto) Eos % (Auto) Baso % (Auto) Absolute Neuts (auto) Absolute Lymphs (auto) Absolute Monos (auto) Absolute Eos (auto) Absolute Basos (auto) Absolute Nucleated RBC Nucleated RBC % Sodium 135 Potassium 3.7 Chloride 101 Carbon Dioxide 29 Anion Gap 5 BUN 7 Creatinine 0.57 L Est GFR ( Amer) 195.4 Est GFR (Non-Af Amer) 151.9 BUN/Creatinine Ratio 12.3 Glucose 93 Lactic Acid Calcium 8.9 Total Bilirubin 1.30 H AST 24 ALT 18 Alkaline Phosphatase 224 H Total Protein 7.0 Albumin 3.0 L Globulin 4.0 Albumin/Globulin Ratio 0.8 L Urine Color Urine Appearance Urine pH Ur Specific [place] Urine Protein Urine Ketones Urine Blood Urine Nitrate Urine Bilirubin Urine Urobilinogen Ur Leukocyte Esterase Urine Glucose Assessment: 1. Enteroccoccus bacteremia; recurrent. Diff Dx includes biliary stenosis, port infection, infective endocarditis 2. metastatic colon cancer; biliary obstruction due to tumor; hepatic duct stents replaced x2 Plan: 1. linezolid 600 mg IV Q12hrs; ISHMAEL, remove port 2. FU BC sent 09/23/[address] Acosta
[2017-09-24] MEDS ORDERED: Lidocaine 1% MPF wEPI 200,000* 30 ML SDV ONE (13:41)
--- NOTE | 2017-09-24 14:38 | BRIEFOPN ---
Brief Operative Note - Surgery Procedures: OPERATIVE REPORT PRE-OP: Sepsis, Left PowerPort in place POST-OP: Same PROCEDURE: Removal of left chest wall PowerPort SURGEON: MD Biju ANESTHESIA:Local ASST:none IVF:none EBL:min SPECIMEN:Swabs of pocket for culture, catheter tip for culture DRAIN: none WOUND CLASS: 1 COMPLICATIONS: none TO Floor
[2017-09-24] MEDS: Prochlorperazine TAB* 10 MG PO PRN (18:07)
[2017-09-24] MEDS: Linezolid 600 MG IVPREMIX(*) 600 MG/300 ML BAG IVPB SCH (21:18)
[2017-09-25 06:26] LABS: ABS Basophils 0 10^3/ul (0-0.2); ABS Eosinophils 0.8 10^3/ul (0-0.6); ABS Lymphocytes 1.3 10^3/ul (1.0-4.8); ABS Monocytes 0.7 10^3/ul (0-0.8); ABS Neutrophils 4.6 10^3/ul (1.5-7.7); ABS Nucleated RBC 0 10^3/ul; Eosinophil % 10.5 % (0-6); Hematocrit 31 % (42-52); Hemoglobin 10.4 g/dl (14.0-18.0); Lymphocyte % 17.4 % (25-47); Mean Corpuscular HGB Conc 34 g/dl (31-36); Mean Corpuscular Hemoglobin 26 pg (27-31); Mean Corpuscular Volume 78 fL (80-94); Mean Platelet Volume 8 um3 (7.4-10.4); Nucleated Red Blood Cells % 0; Platelet Count 203 10^3/ul (150-450); Red Blood Count 3.94 10^6/ul (4.0-5.4); Red Cell Distribution Width 17 % (10.5-15); White Blood Count 7.5 10^3/ul (3.5-10.8)
[2017-09-25 06:33] LABS: EGFR Non-African American 161.7 (>60)
[2017-09-25] MEDS: Enoxaparin(*) 40 MG/0.4 ML SYR SUBCUT SCH (09:04)
[2017-09-25] MEDS: Linezolid 600 MG IVPREMIX(*) 600 MG/300 ML BAG IVPB SCH ×2 (09:05→20:36)
[2017-09-25] MEDS: Prochlorperazine TAB* 10 MG PO PRN (11:34)
[2017-09-25] MEDS ORDERED: Flumazenil* 0.1 MG/ML 5 ML MDV ONE (12:22)
[2017-09-25] MEDS ORDERED: Naloxone* 0.4 MG/ML 1 ML VIAL ONE (12:22)
[2017-09-25] MEDS ORDERED: fentaNYL* 50 MCG/ML 2 ML VIAL (100 MCG VIAL) ONE (12:22)
[2017-09-25] MEDS ORDERED: Lidocaine 2% VISCOUS* 15 ML UDC ONE (12:22)
[2017-09-25] MEDS ORDERED: Midazolam* 1 MG/ML 10 ML VIAL (10 MG) ONE (12:23)
--- NOTE | 2017-09-25 15:47 | PN ---
Progress Note - Progress Note Date of Service: 09/25/17 SOAP: Subjective: CC: fever HPI: 51 year old man with fever 2 days after stopping dapto for E. faecium bacteremia; had biliary stents replaced last week; no abd pain. No fever, rash , or diarrhea; no pain. Had ISHMAEL this afternoon. Objective: Vital Signs Temp 37.4 C 09/25/17 14:58 Pulse 87 09/25/17 14:58 Resp 16 09/25/17 14:58 BP 148/77 09/25/17 14:58 Pulse Ox 100 09/25/17 14:58 Intake & Output 09/24/17 09/25/17 09/25/17 18:59 06:59 18:59 Intake Total 1886 300 0 Output Total 0 Balance 1886 300 0 Intake: IV Fluids 736 NS 736 IVPB 300 ABX - LINEZOLID 300 Oral 1150 0 0 Output: Urine 0 Other: Estimated Void Medium # Bowel Movements 0 0 # Voids 2 Gen:awake, no distress HEENT:thrush Heart:RRR no murmur Lungs:CTA BL Abd:+BS NTND soft Skin: no rash MSK: no spine tenderness Laboratory Results - last 24 hr 09/25/17 09/25/17 05:55 05:55 WBC 7.5 RBC 3.94 L Hgb 10.4 L Hct 31 L MCV 78 L MCH 26 L MCHC 34 RDW 17 H Plt Count 203 MPV 8 Neut % (Auto) 61.5 Lymph % (Auto) 17.4 L [place] % (Auto) 10.0 H Eos % (Auto) 10.5 H Baso % (Auto) 0.6 Absolute Neuts (auto) 4.6 Absolute Lymphs (auto) 1.3 Absolute Monos (auto) 0.7 Absolute Eos (auto) 0.8 H Absolute Basos (auto) 0 Absolute Nucleated RBC 0 Nucleated RBC % 0 Sodium 136 Potassium 3.4 L Chloride 103 Carbon Dioxide 26 Anion Gap 7 BUN 6 Creatinine 0.54 L Est GFR ( Amer) 208.0 Est GFR (Non-Af Amer) 161.7 BUN/Creatinine Ratio 11.1 Glucose 108 H Calcium 9.0 Total Bilirubin 1.10 H AST 20 ALT 17 Alkaline Phosphatase 222 H Total Protein 7.0 Albumin 3.0 L Globulin 4.0 Albumin/Globulin Ratio 0.8 L Microbiology 09/23/17 11:36 Aerobic Blood Culture - Preliminary Blood Venous No Growth Day 2 Anaerobic Blood Culture - Preliminary No Growth Day 2 09/24/17 14:15 Catheter Tip Culture - Preliminary Catheter Tip Staphylococcus Haemolyticus 09/24/17 14:15 Wound Gram Stain - Final Tissue Tissue Culture - Preliminary No Growth Day 1 09/24/17 14:15 Anaerobic Culture - Preliminary Wound No Growth Day 1 09/23/17 09:40 Aerobic Blood Culture - Preliminary Blood Line No Growth Day 2 Anaerobic Blood Culture - Preliminary No Growth Day 2 09/20/17 23:35 Aerobic Blood Culture - Final Blood Venous Enterococcus Faecium Anaerobic Blood Culture - Preliminary No Growth Day 4 09/20/17 23:00 Aerobic Blood Culture - Final Blood Venous Enterococcus Faecium Anaerobic Blood Culture - Preliminary No Growth Day 4 Blood MRSA/MSSA (PCR) - Final Mrsa Negative S.aureus Negative Assessment: 1. Enteroccoccus bacteremia; recurrent, follow up cultures negative. Diff Dx includes biliary stenosis, port infection (which was removed), no vegetation seen on ISHMAEL. 2. metastatic colon cancer; biliary obstruction due to tumor; hepatic duct stents replaced x2 Plan: 1. linezolid 600 mg IV Q12hrs; day 10/17; weekly cbc, cmp, crp
[2017-09-25] MEDS: Potassium Chlor TAB* 20 MEQ TAB.ER PO SCH (16:10)
[2017-09-25] MEDS: NS 0.9% 1000 ML* 1,000 ML IV SCH (16:11)
--- NOTE | 2017-09-25 17:10 | TEE ---
Patient: RACHID LINDQUIST [facility] Rec#: [id number] : 1965 Date: 09/25/2017 Age: 51y Height: 187.96 cm / 74.0 in Weight: 133.81 kg / 294.9 lbs Sex: M BSA: 2.56 Room#: [facility] Type: Inpatient Referring: Fernando Pan MD Performing: Alexi Andrews MD Reading: Alexi Andrews MD Mini Shifter: Roberta Castano RDCS Nurse: Josiane Novoa CC: Mina Acosta MD Transesophageal Echocardiogram Indication: Bacteremia BP: 137/82 HR: 86 Rhythm: NSR Findings History: Colon cancer with metastasis to liver, polymicrobial bacteremia, chemotherapy. Technical Comments: The study quality is good. Left Ventricle: The left ventricular chamber size is normal. Global left ventricular wall motion and contractility are within normal limits. There is normal left ventricular systolic function. The estimated ejection fraction is 55-60%. Left Atrium: The left atrium is mildly dilated. No thrombus is visualized within the left atrium. There is no thrombus visualized in the left atrial appendage. Right Ventricle: The right ventricular cavity size is normal. The right ventricular global systolic function is normal. Right Atrium: The right atrium is mildly dilated. A prominent eustachian valve is noted in the right atrium. Interatrial septum appears intact without evidence of shunting. The bubble study is negative. A patent foramen ovale is not demonstrated with color Doppler and agitated contrast. Aortic Valve: The aortic valve is trileaflet. The aortic valve leaflets are mildly thickened. There is no evidence of aortic regurgitation. There is no evidence of aortic stenosis. There is no aortic vegetation present. Mitral Valve: The mitral valve leaflets are mildly thickened. There is a trace of mitral regurgitation. There is no evidence of mitral stenosis. No vegetation is observed on the mitral valve. Tricuspid Valve: The tricuspid valve leaflets are normal. There is trace tricuspid regurgitation. There is no tricuspid stenosis. No vegetation is observed on the tricuspid valve. Pulmonic Valve: The pulmonic valve structure is not well visualized. There is no evidence of pulmonic regurgitation. There is no pulmonic stenosis. No vegetation is observed on the pulmonic valve. Pericardium: There is no significant pericardial effusion. Aorta: There is no dilatation of the ascending aorta. The aortic root is normal in size. There is plaque visualized in the transverse aorta. There is minimal atherosclerotic plaque in the visualized segments of the aorta. Pulmonary Artery: The main pulmonary artery appears normal. Venous: The bicaval view was obtained and appears normal. The pulmonary veins appear normal. 1 of 4 visualized. The pulmonary veins appear normal in size. ISHMAEL Procedures: All standard views were attempted within the limitations of patient tolerance and safety. History and physical as well as labs were reviewed. The patient was in a fasting state. Risks and benefits of the procedure, including alternatives, were discussed and written informed consent was obtained. The patient and/or their health care auto service representative expressed understanding of the procedure, risks and benefits. Baseline and continuous monitoring of blood pressure, heart rate, pulse oximetry and heart rhythm was performed throughout the procedure. The appropriate time-out procedure was performed as per [facility] protocol. The patient was placed in the left lateral decubitus position. The patient's posterior pharynx was anesthetized with 20ml of 2% viscous lidocaine. The patient received IV Midazolam with a total dose of 6 mg. The patient received IV Fentanyl with a total dose of 50 mcg. An oral bite block was inserted for protection of oral dentition. The multiplane transesophageal echocardiogram probe was inserted through the posterior oropharynx and advanced into the esophagus without difficulty. Multiple 2D images were obtained of the heart and its related structures. Color flow Doppler was used for evaluation. Spectral Doppler was also used. The atrial septum was interrogated with color flow Doppler. At the conclusion of the procedure the probe was removed with continuous suction without complications. The patient tolerated the procedure with no apparent complications. Contrast: Normal saline was used as contrast for the bubble study. Image 36. Intravenous contrast was used to help determine presence of intracardiac shunting. Conclusions Global left ventricular wall motion and contractility are within normal limits. There is normal left ventricular systolic function. The estimated ejection fraction is 55-60%. There is no thrombus visualized in the left atrial appendage. A patent foramen ovale is not demonstrated with color Doppler and agitated contrast. There is no aortic vegetation present. No vegetation is observed on the mitral valve. There is a trace of mitral regurgitation. There is trace tricuspid regurgitation. No vegetation is observed on the tricuspid valve. There is no significant pericardial effusion. Measurements Name Value Normal Range Aortic Annulus 2.7 cm (1.4 - 2.6) Ao root diameter (2D) 3.4 cm (2.1 - 3.5) Ascending Ao 3.4 cm (2.1 - 3.4) Name Value Normal Range MV E-wave Vmax 0.97 m/sec - MV deceleration time 145.2 msec - MV A-wave Vmax 0.91 m/sec - MV E:A ratio 1.06 ratio -
--- NOTE | 2017-09-25 18:15 | OP ---
CC: Dr. Mina Acosta * DATE OF OPERATION: 09/24/17 - ROOM #413 DATE OF : 69 SURGEON: Jeferson Iyv MD ANESTHESIA: 1% lidocaine with epinephrine. PRE-OP DIAGNOSIS: Metastatic colon cancer, possible infected PowerPort. POST-OP DIAGNOSIS: Metastatic colon cancer, possible infected PowerPort. OPERATIVE PROCEDURE: Removal of left chest wall PowerPort. ESTIMATED BLOOD LOSS: Minimal. SPECIMENS: 1. Swabs from port pocket for Gram stain and culture. 2. Catheter tip for Gram stain and culture. WOUND CLASSIFICATION: 1. DRAINS: None. COMPLICATIONS: None. BRIEF HISTORY: Mr. Alton Allen is a 51-year-old gentleman with metastatic colon cancer, who has had biliary obstruction with stents placed and has had episodes of bacteremia with sepsis over the past 3 to 4 weeks, not completely responsive to IV and oral antibiotics. He has had a stent changed. There was concern that the PowerPort may be infected and the oncology service as well as the ID service recommended and requested this to be removed and cultured. The procedure was discussed with the patient and the risks of, but not limited to bleeding, infection, air embolism, thrombosis of the catheter, and discomfort were all explained. DESCRIPTION OF PROCEDURE: Written informed consent was obtained, the left chest wall was marked with indelible ink. The patient was placed in the supine position and the existing left chest wall port site was prepped and draped in the usual sterile fashion. Time-out verification was completed. A 1% lidocaine with epinephrine was infiltrated over the palpable port and along the previous transverse incision. The previous incision was then incised with a 15- blade knife, carried down through the subcutaneous tissue. The port was identified. There was no evidence of purulence or fluid and the two 3-0 Prolene sutures were cut. The catheter did, however, have minimal adhesions, although it had only been in place for about a month, but it was easily removed. The patient was placed in Trendelenburg position and pressure was held as the catheter was removed and he tolerated this well. Hemostasis was assured. The wound was closed in layers of 3-0 and 4-0 Vicryl suture. Steri-Strips and an occlusive dressing were applied. The patient tolerated the procedure well. [id number]/[facility] #: [id number] [facility]
[2017-09-25] MEDS: Acetaminophen TAB* 325 MG PO PRN (18:28)
[2017-09-26 05:58] LABS: EGFR Non-African American 172.7 (>60)
[2017-09-26] MEDS: NS 0.9% 1000 ML* 1,000 ML IV SCH (06:35)
[2017-09-26] MEDS: Enoxaparin(*) 40 MG/0.4 ML SYR SUBCUT SCH (09:40)
[2017-09-26] MEDS: Linezolid 600 MG IVPREMIX(*) 600 MG/300 ML BAG IVPB SCH ×2 (09:40→22:01)
[2017-09-26] MEDS: Potassium Chlor TAB* 20 MEQ TAB.ER PO SCH (09:42)
--- NOTE | 2017-09-26 10:01 | PN ---
Progress Note - Progress Note Date of Service: 09/26/17 SOAP: Subjective: CC: fever HPI: 51 year old man with fever 2 days after stopping dapto for E. faecium bacteremia; had biliary stents replaced last week; no abd pain. Fever overnight , no rash or diarrhea. Objective: Vital Signs Temp 36.4 C 09/26/17 07:21 Pulse 71 09/26/17 07:21 Resp 20 09/26/17 07:48 BP 132/88 09/26/17 07:21 Pulse Ox 100 09/26/17 07:21 Intake & Output 09/25/17 09/26/17 09/26/17 18:59 06:59 18:59 Intake Total 570 1473 360 Output Total 0 Balance 570 1473 360 Intake: IV Fluids 653 NS 653 IVPB 300 ABX - LINEZOLID 300 Oral 570 520 360 Output: Urine 0 Other: Estimated Void Medium # Bowel Movements 0 0 # Voids 2 Gen:awake, no distress HEENT:thrush Heart:RRR no murmur Lungs:CTA BL Abd:+BS NTND soft Skin: no rash MSK: no spine tenderness Laboratory Results - last 24 hr 09/26/17 05:05 Sodium 137 Potassium 3.4 L Chloride 105 Carbon Dioxide 26 Anion Gap 6 BUN 6 Creatinine 0.51 L Est GFR ( Amer) 222.2 Est GFR (Non-Af Amer) 172.7 BUN/Creatinine Ratio 11.8 Glucose 92 Calcium 8.8 Assessment: 1. Enteroccoccus bacteremia; recurrent, follow up cultures negative. Diff Dx includes biliary stenosis, port infection (which was removed), no vegetation seen on ISHMAEL. 2. Fever, likely ongoing biliary infection, GNR not covered 2. metastatic colon cancer; biliary obstruction due to tumor; hepatic duct stents replaced x2 Plan: 1. linezolid 600 mg IV Q12hrs; day 28; weekly cbc, cmp, crp . Will add levaquin 750 mg daily and continue for month assuming fever resolves. Brenda AVENDAÑO
[2017-09-26] MEDS: Levofloxacin TAB* 750 MG PO SCH (10:36)
--- NOTE | 2017-09-26 12:04 | PN ---
Progress Note - Progress Note Date of Service: 09/26/17 SOAP: Subjective: [Patient had additional fever overnight, associated with chills. Denies abd pain, n/v. No new symptoms.] Objective: [ Vital Signs: Temp Pulse Resp BP Pulse Ox 98.5 F 89 18 134/84 98 09/26/17 11:14 09/26/17 11:14 09/26/17 11:14 09/26/17 11:14 09/26/17 11:14 Acetaminophen (Tylenol Tab*) 650 mg PO Q6H PRN PRN Reason: FEVER/PAIN Last Admin: 09/25/17 18:28 Dose: 650 mg Enoxaparin Sodium (Lovenox(*)) 40 mg SUBCUT Q24H [facility] Last Admin: 09/26/17 09:40 Dose: 40 mg Heparin Sodium (Porcine) (Heparin Flush Port (Ivad)) 5 ml FLUSH DAILY [facility] PRN Reason: Protocol Last Admin: 09/26/17 07:47 Dose: Not Given Linezolid (Zyvox 600 Mg Ivpremix(*)) 600 mg in 300 mls @ 300 mls/hr IVPB Q12H [facility] Last Admin: 09/26/17 09:40 Dose: 300 mls/hr Ibuprofen (Motrin Tab*) 600 mg PO Q8H PRN PRN Reason: FEVER/PAIN Last Admin: 09/25/17 20:36 Dose: 600 mg Levofloxacin (Levaquin Tab*) 750 mg PO DAILY [facility] Last Admin: 09/26/17 10:36 Dose: 750 mg Ondansetron HCl (Zofran Tab*) 4 mg PO Q6H PRN PRN Reason: NAUSEA Last Admin: 09/21/17 23:27 Dose: 4 mg Potassium Chloride (Klor Con Er Tab*) 20 meq PO DAILY [facility] Last Admin: 09/26/17 09:42 Dose: 20 meq Prochlorperazine (Compazine Tab*) 10 mg PO Q6H PRN PRN Reason: NAUSEA Last Admin: 09/25/17 11:34 Dose: 10 mg Laboratory Results - last 24 hr 09/26/17 05:05 Sodium 137 Potassium 3.4 L Chloride 105 Carbon Dioxide 26 Anion Gap 6 BUN 6 Creatinine 0.51 L Est GFR ( Amer) 222.2 Est GFR (Non-Af Amer) 172.7 BUN/Creatinine Ratio 11.8 Glucose 92 Calcium 8.8 ] Assessment: [This is a 51 yo gentleman with metastatic CRC who has been able to complete only one cycle of chemotherapy, admitted with recurrent bacteremia after exchange of biliary stents.] Plan: [1. Enterococcus bacteremia - source is likely biliary stasis proximal to biliary stents ID input is appreciated Port has been removed, tip grew staph haemolyticus, unlikely to be source of infection He continues to have fever, but repeat cultures are neg, discussed utility of removing biliary stents with Dr Pan who was in favor of stents remaining in place to ensure adequate biliary drainage and continuing with appropriate antibiotic coverage Add oral Levaquin per ID for gram neg coverage Plan to cont IV Linezolid for 4 weeks per ID Repeat MRCP to eval for occult abscess, if there are no drainable collections anticipate likely dc home tomorrow with IV infusion 2. Metastatic CRC - treatment has been delayed due to recurrent infection. Plan to resume chemo following discharge] 3. DVT prophylaxis - SQ Lovenox]
[2017-09-26] MEDS ORDERED: Gadoteridol* (CONTRAST) 279.3 MG/ML 10 ML IV ONE (20:37)
--- NOTE | 2017-09-26 21:56 | RAD ---
Indication: Evaluate for hepatic abscess. Image sequences: Axial diffusion, coronal and axial T2, axial T2 fat sat, in phase and out out of phase axial images were obtained. 20 mL of ProHance was injected intravenously. Multiple abnormal signal lesions are noted throughout the liver. They all demonstrate mild increase in signal suggestive of metastatic disease and appears solid. No evidence of fluid signal lesions are noted. The gallbladder fossa demonstrates gallbladder is partially contracted. There may be some pericholecystic fluid noted. There are dilated intrahepatic ducts noted in the right lobe of liver.. The common duct is not well visualized due to biliary stent in place. There is a left adrenal lesion measuring 13 mm. The spleen is normal in size. The kidneys demonstrate no hydronephrosis. Aorta and inferior vena cava are normal. There are some minor aortocaval lymph node measures 14 mm IMPRESSION: No hepatic abscess is noted. Hepatic lesions appear to be solid lesion without fluid signal within the liver. Contracted gallbladder with fluid gallbladder fossa. Dilated intrahepatic ducts especially in the right lobe of liver. Biliary stent obscures the biliary duct.
[2017-09-27 06:38] LABS: ABS Basophils 0.1 10^3/ul (0-0.2); ABS Eosinophils 0.9 10^3/ul (0-0.6); ABS Lymphocytes 1.5 10^3/ul (1.0-4.8); ABS Monocytes 0.6 10^3/ul (0-0.8); ABS Neutrophils 3.4 10^3/ul (1.5-7.7); ABS Nucleated RBC 0 10^3/ul; Eosinophil % 13.8 % (0-6); Hematocrit 30 % (42-52); Hemoglobin 9.6 g/dl (14.0-18.0); Lymphocyte % 23.8 % (25-47); Mean Corpuscular HGB Conc 32 g/dl (31-36); Mean Corpuscular Hemoglobin 25 pg (27-31); Mean Corpuscular Volume 77 fL (80-94); Mean Platelet Volume 7 um3 (7.4-10.4); Nucleated Red Blood Cells % 0; Platelet Count 227 10^3/ul (150-450); Red Blood Count 3.83 10^6/ul (4.0-5.4); Red Cell Distribution Width 17 % (10.5-15); White Blood Count 6.5 10^3/ul (3.5-10.8)
[2017-09-27] MEDS: Linezolid 600 MG IVPREMIX(*) 600 MG/300 ML BAG IVPB SCH (08:22)
[2017-09-27] MEDS: Levofloxacin TAB* 750 MG PO SCH (08:29)
[2017-09-27] MEDS: Potassium Chlor TAB* 20 MEQ TAB.ER PO SCH (08:30)
--- NOTE | 2017-09-27 09:34 | PN ---
Progress Note - Progress Note Date of Service: 09/27/17 SOAP: Subjective: CC: fever HPI: 51 year old man with fever 2 days after stopping dapto for E. faecium bacteremia; had biliary stents replaced last week; no abd pain. No fever last night, energy and appetite good. Objective: Vital Signs Temp 37.3 C 09/27/17 02:41 Pulse 91 09/27/17 02:41 Resp 16 09/27/17 02:41 BP 144/91 09/27/17 02:41 Pulse Ox 99 09/27/17 02:41 Intake & Output 09/26/17 09/27/17 09/27/17 18:59 06:59 18:59 Intake Total 1020 1180 Balance 1020 1180 Weight 298 lb Intake: IV Fluids 300 ABX - LINEZOLID 300 IVPB 300 ABX - LINEZOLID 300 Oral 720 880 Other: Estimated Void Medium Medium # Bowel Movements 0 1 # Voids 2 1 1 Gen:awake, no distress HEENT:thrush Heart:RRR no murmur Lungs:CTA BL Abd:+BS NTND soft Skin: no rash MSK: no spine tenderness Laboratory Results - last 24 hr 09/27/17 09/27/17 05:37 05:37 WBC 6.5 RBC 3.83 L Hgb 9.6 L Hct 30 L MCV 77 L MCH 25 L MCHC 32 RDW 17 H Plt Count 227 MPV 7 L Neut % (Auto) 52.6 Lymph % (Auto) 23.8 L [place] % (Auto) 8.9 H Eos % (Auto) 13.8 H Baso % (Auto) 0.9 Absolute Neuts (auto) 3.4 Absolute Lymphs (auto) 1.5 Absolute Monos (auto) 0.6 Absolute Eos (auto) 0.9 H Absolute Basos (auto) 0.1 Absolute Nucleated RBC 0 Nucleated RBC % 0 Sodium 136 Potassium 3.5 Chloride 103 Carbon Dioxide 26 Anion Gap 7 BUN 7 Creatinine 0.59 L Est GFR ( Amer) 187.8 Est GFR (Non-Af Amer) 146.0 BUN/Creatinine Ratio 11.9 Glucose 89 Calcium 8.8 Total Bilirubin 0.80 AST 17 ALT 13 Alkaline Phosphatase 210 H Total Protein 6.7 Albumin 2.7 L Globulin 4.0 Albumin/Globulin Ratio 0.7 L Assessment: 1. Enteroccoccus bacteremia; recurrent, follow up cultures negative. Diff Dx includes biliary stenosis, port infection (which was removed), no vegetation seen on ISHMAEL. 2. Fever, likely ongoing biliary infection, resolved 2. metastatic colon cancer; biliary obstruction due to tumor; hepatic duct stents replaced x2 Plan: 1. linezolid 600 mg IV Q12hrs and levaquin 750 mg PO daily; day 5/28; weekly cbc , cmp, crp . Discussed w Lincoln AVENDAÑO and Dr Sethi
[2017-09-27 09:51] VITALS: BP 145/100
--- NOTE | 2017-09-28 00:36 | DS ---
CC: Dr. Fernando Pan; Dr. Acosta * DISCHARGE SUMMARY: DATE OF ADMISSION: 09/21/17 DATE OF DISCHARGE: 09/27/17 ATTENDING PHYSICIAN: Dr. Samira Sethi.* (DICTATED BY JAROCHO MERCEDES) DISCHARGING PROVIDER: JAROCHO Mercedes PRIMARY DISCHARGE DIAGNOSES: 1. Enterococcus bacteremia, likely a biliary source. 2. Colon cancer with metastasis to the liver. 3. Hypokalemia - resolved. 4. Obesity with BMI of 38. DISCHARGE MEDICATIONS: 1. Ibuprofen 600 mg p.o. q.8 hours as needed for pain or fever. 2. Levaquin 750 mg p.o. daily x28 days. 3. Linezolid 600 mg IV twice daily for a total of 28 days - therapy should be completed 10/21/17. 4. Zofran 4 mg p.o. q.6 hours as needed for nausea or vomiting. 5. Compazine 10 mg p.o. q.6 hours as needed for nausea or vomiting. HOSPITAL IMAGIN. Chest x-ray, 09/20/17, shows no acute process. 2. CT of the abdomen and pelvis with contrast demonstrates hepatic lesions, which are unchanged from prior exam consistent with metastatic disease and presence of biliary stent. Left biliary tree is decompressed and persistent dilatation of the right biliary tree. Sigmoid colon mass is noted as well as retroperitoneal and mesenteric lymphadenopathy, which is unchanged from prior exam. There are pulmonary lesions, which are unchanged consistent with pulmonary metastatic disease. 3. Chest x-ray, 09/23/17, shows no acute process. 4. MRI of the abdomen shows no hepatic abscess. Hepatic lesions appeared to be solids without a fluid signal. Gallbladder is contracted. Dilated intrahepatic ducts noted especially in the right lobe of the liver and biliary stent obscures the biliary duct. 5. Transthoracic echocardiogram - no vegetations appreciated. No evidence of significant valvular disease. 6. Transesophageal echocardiogram is also negative for vegetation. HOSPITAL COURSE: This is a 51-year-old gentleman with metastatic colon cancer, who presented with complaints of recurrent fevers. The patient was admitted through 09/11/17 with enterococcus bacteremia seemed to be of a biliary source. The patient following discharge was seen by Interventional Radiology at [facility], who replaced his biliary stents. He had been followed by infectious disease specialist, Dr. Fernando MacQueen. He was being treated with daptomycin and Levaquin prior to the stent exchange and antibiotics were discontinued following the procedure. Within 48 hours of discontinuing antibiotics, the patient began to have fevers again without associated abdominal pain, nausea, or vomiting. At the time of admission, the patient's labs were largely unremarkable. He had a normal white blood cell count to 10,300 with mild anemia with hemoglobin of 12.5 and platelet counts of 315,000. He had mildly elevated alk phos and AST, total bilirubin of 1.6. CRP was 39.4. At the time of admission, lactic acid was 1.8. Blood cultures were drawn at the time of admission, which eventually grew Enterococcus faecium and same organism that he had grown on previous cultures. The patient was empirically treated with Zosyn and then transitioned to linezolid per Infectious Disease's recommendations. It is unclear at that time whether the source of infection was due to the presence of his biliary stent, which may have been affected or some persistent biliary stasis higher in the biliary tree that is not effectively drained by the presence of the biliary stents or his port had been compromised from his prior episode of bacteremia. Decision was made to remove his port. Catheter tip was cultured, which grew Staph haemolyticus likely representing a contaminant rather than a true pathogen. Despite targeted therapy to the enterococcus with linezolid, the patient continued to have fevers on a daily basis. Repeat blood cultures showed no additional growth. The patient was restarted on oral Levaquin for gram- negative coverage with the assumption that he has perhaps indolent polymicrobial infection due to his biliary stasis. Repeat imaging of his liver was completed to evaluate for drainable abscess. MRI of the liver with contrast was done, which did not demonstrate an abscess but he does still have some dilated biliary ducts within the right hepatic lobe. At the time of discharge, the patient had mildly elevated temperature to 100.1 the night prior to discharge but was without associated symptoms. Again, repeat blood cultures have been negative. After extensive discussion between Infectious Disease and primary oncologist, plan is to continue extended course of antibiotics with linezolid and Levaquin for a total of 4 weeks with plans to initiate chemotherapy in hopes of reducing his tumor bulk within the liver to allow for more adequate biliary drainage and reduce his risk of re-infection. DISPOSITION AND FOLLOWUP PLAN: The patient is being discharged to home. He will receive twice daily linezolid infusions and oral Levaquin as described above through 10/21/17 under the direction of Dr. Pan. The patient will require weekly CBC, CMP, and CRPs while on antibiotic therapy. Followup plans with Dr. Acosta for Sunday for chemotherapy planning and follow up with Dr. Pan within the next 2 weeks to evaluate antibiotic therapy. JAROCHO MERCEDES [id number]/[facility] #: [id number] [facility]
== END 2017-09-27 10:20 | disposition home or self-care (01) | DRG 445 ==
LOC: ED 22:19 → MED 09-21 05:32
PROVIDERS: ADMIT Hospitalist; ATTEND Internal Medicine Hematology & Oncology
PROC: 02PYX3Z Removal of Infusion Device from Great Vessel, External Approach (ICD-10-PCS; 2017-09-24)
PROC: 0JPT0WZ Removal of Totally Implantable Vascular Access Device from Trunk Subcutaneous Tissue and Fascia, Open Approach (ICD-10-PCS; principal; 2017-09-24 13:00)
PROC: B24BZZ4 Ultrasonography of Heart with Aorta, Transesophageal (ICD-10-PCS; 2017-09-25)
PROC: 02HV33Z Insertion of Infusion Device into Superior Vena Cava, Percutaneous Approach (ICD-10-PCS; 2017-09-26)
DX: K83.1 Obstruction of bile duct (principal); R78.81 Bacteremia; C78.7 Secondary malignant neoplasm of liver and intrahepatic bile duct; C18.7 Malignant neoplasm of sigmoid colon; J98.4 Other disorders of lung; B95.2 Enterococcus as the cause of diseases classified elsewhere; D64.9 Anemia, unspecified; E66.9 Obesity, unspecified; R74.8 Abnormal levels of other serum enzymes; G47.30 Sleep apnea, unspecified; B37.9 Candidiasis, unspecified; R53.83 Other fatigue; E87.6 Hypokalemia; Z88.0 Allergy status to penicillin; Z80.9 Family history of malignant neoplasm, unspecified; Z68.38 Body mass index [BMI] 38.0-38.9, adult; Z83.3 Family history of diabetes mellitus
CPT/HCPCS: 36415; 71045; 71046; 74177; 74183; 80048; 80053; 81003; 82248; 83605; 83690; 84484; 85025; 85610; 85730; 86140; 87040; 87070; 87071; 87073; 87077; 87150; 87186; 87205; 87502; 93005; 93306; 93312; 93325; 99156; 99157; 99232; 99233; 99239; 99285; A9270-GY; A9579; C1751; J0878; J1642; J1650; J2001; J2020; J2250; J2310; J2543; J3010; J3370; Q0164; Q9967

== ENCOUNTER → 2017-11-05 06:09 | Day surgery (SDC) | payer OTHER ==
[~2017-11-05 06:09] MED LIST changes: +Acetaminophen TAB* 325 MG PO PRN; +Buffered Lidocaine 0.9% SYRIN* 5 ML/SYR SYRINGE ONE; +Dexamethasone IV* 4 MG/ML 1 ML (4 MG) ONE; +Iohexol 180 (CONTRAST) 10 ML SDV IV ONE; +Lidocaine 1% INJ* 10 MG/ML 30 ML SDV ONE; +Lidocaine 2% PF * 5 ML VIAL ONE; -Metoclopramide TAB* 10 MG PO ONE; +Midazolam* 1 MG/ML 2 ML VIAL (2 MG) ONE; +Naloxone* 0.4 MG/ML 1 ML VIAL IV PRN; +PROCHLORPERAZINE INJ 5 MG/ML 2 ML VIAL IV PRN; +Propofol* 10 MG/ML 20 ML BTL IV PUSH ONE; +ceFAZolin 1 GM in Dextrose (*) 1 GM/50 ML BAG IVPB ONE; +ceFAZolin 2 GM PREMIX (*) 2 GM/50 ML BAG IVPB ONE; +diPHENhydraMINE IV* 50 MG/ML 1 ml VIAL (BENADRYL) ONE; +fentaNYL* 50 MCG/ML 2 ML VIAL (100 MCG VIAL) ONE
--- NOTE | 2017-11-05 08:54 | BRIEFOPN ---
Brief Operative Note - Surgery Procedures: Procedures I OPERATIVE REPORT PRE-OP: Stage 4 colon cancer POST-OP: Same PROCEDURE: Insertion of PowerPort right subclavian vein-percutaneous and needle in SURGEON: MD Biju ANESTHESIA:Local with MAC Dr. Lowery ASST: none IVF: min EBL: min SPECIMEN:none DRAIN: none WOUND CLASS: One COMPLICATIONS: none TO PACU
--- NOTE | 2017-11-05 09:08 | RAD ---
INDICATION: RIGHT side PowerPort placement. Colon carcinoma. COMPARISON: No relevant prior exams available on the [facility] PACS for comparison. TECHNIQUE: 77.1 seconds fluoroscopy. FINDINGS: Spot images document the tip of the RIGHT chest port is at the level of the RIGHT atrium. IMPRESSION: Procedural fluoroscopy. CPT II Codes: G9500
--- NOTE | 2017-11-05 09:32 | RAD ---
Dictation: PowerPort placement. Single frontal view of the chest performed at 0905 hours was reviewed. Comparison is made with previous exam dated September 23, 2017. Cardiomegaly is noted. There is a right-sided PowerPort in place with the tip appearing in the right atrium. Cardiomegaly is noted. No pneumothorax is noted. IMPRESSION: Port-A-Cath placement with the tip in the right atrium. No pneumothorax is noted.
[2017-11-05 09:33] VITALS: BP 138/90
--- NOTE | 2017-11-06 03:54 | OP ---
CC: Dr. Mina Acosta * DATE OF OPERATION: 11/05/17 - [facility] DATE OF : 69 SURGEON: Jeferson Ivy MD CHICK ROOM SUPERVISOR: None. ANESTHESIOLOGIST: Dr. Lowery. ANESTHESIA: Local with monitored anesthesia care. PRE-OP DIAGNOSIS: Stage IV colon cancer. POST-OP DIAGNOSIS: Stage IV colon cancer. OPERATIVE PROCEDURE: Insertion of a right chest wall subclavian 8-Greek PowerPort, needle in. ESTIMATED BLOOD LOSS: Minimal. WOUND CLASSIFICATION: 1. COMPLICATIONS: None. DRAINS: None. SPECIMENS: None. DESCRIPTION OF PROCEDURE: Written informed consent was obtained. The right chest wall was marked with indelible ink and preoperative antibiotics were administered. The patient was taken to the operating room and placed in the supine position. Sequential compression devices and warming blanket were applied. The right and left chest and neck were prepped and draped in the usual sterile fashion. Time-out verification was completed. The patient was placed in Trendelenburg position and the right mid clavicular area on the chest wall was anesthetized with 1% lidocaine with epinephrine. Using an 18- gauge Cook needle, the subclavian vein on the right was punctured on the first pass with good blood return. The guidewire was inserted and confirmed by fluoroscopy to be into the superior vena cava. Additional lidocaine was infiltrated along the chest wall just inferior to the initial puncture site, and a transverse incision was made and a subcutaneous pocket was made large enough to fit the port. The catheter was then tunneled from the pocket site to the puncture site. Using the sheath dilator peel-away system, the catheter was advanced in place into the superior vena cava at about the junction of the right atrium. I did need to use some IV contrast to visualize the catheter due to his body habitus and quality of fluoroscopy to assure myself of the correct positioning of the catheter tip. The catheter was then cut to the appropriate length and attached to the port, which was placed within the pocket. The port was sutured to the pocket with two 2-0 Prolene sutures. The port flushed and withdrew blood well. Hemostasis was assured. The skin was closed with a running 3-0 subcutaneous Vicryl and a running 4-0 subcuticular Monocryl. Steri-Strips were applied. The catheter was then accessed with a right angle Zurita needle and flushed with saline and subsequently heparin solution in anticipation of it being used today. Occlusive Tegaderm dressings were applied. The patient tolerated the procedure well and was taken to recovery room in stable condition. Postprocedural chest x-ray showed the catheter to be in good position without evidence of pneumothorax on the x-ray. [id number]/[facility] #: [id number] MTDD
== END | disposition home or self-care (01) ==
LOC: OR 06:09
PROVIDERS: ATTEND Surgery
DX: C78.7 Secondary malignant neoplasm of liver and intrahepatic bile duct (principal); K76.89 Other specified diseases of liver; G47.33 Obstructive sleep apnea (adult) (pediatric); I10 Essential (primary) hypertension; Z68.38 Body mass index [BMI] 38.0-38.9, adult
CPT/HCPCS: 71045; 76001; C1788; J0690; J1100; J1200; J1642; J2250; J2704; J3010

== ENCOUNTER 2018-11-01 16:13 | Inpatient (IN) | payer OTHER ==
[2018-11-01] MEDS ORDERED: Piperacillin/Tazobac ADVAN(*) 3.375 GM in NS 0.9% 100 ML* 100 ML IVPB ONE (16:31)
[2018-11-01] MEDS ORDERED: Ondansetron TAB* 4 MG PO PRN (16:47)
[2018-11-01] MEDS ORDERED: Prochlorperazine TAB* 10 MG PO PRN (16:47)
[2018-11-01] MEDS ORDERED: traMADol TAB* 50 MG PO PRN (16:47)
[2018-11-01] MEDS ORDERED: Docusate CAP* 100 MG PO PRN (16:47)
[2018-11-01] MEDS ORDERED: Magnesium Sulfate 2 GM IV* 2 GM/50 ML BAG IVPB ONE (16:50)
[2018-11-01] MEDS ORDERED: Zosyn per Pharmacy* NOTE FOLLOW UP SCH (17:00)
[2018-11-01] MEDS ORDERED: KCL 10 MEQ/50 ML IVPREMIX* 10 MEQ/50 ML BAG IV SCH (17:00)
[2018-11-01] MEDS ORDERED: fentaNYL* 50 MCG/ML 5 ML VIAL (250 MCG VIAL) ONE (17:14)
[2018-11-01] MEDS: Enoxaparin(*) 40 MG/0.4 ML SYR SUBCUT SCH (21:04)
[2018-11-01] MEDS: Morphine 10 MG/ML VIAL (1 ml) IV PRN (22:02)
[2018-11-01] MEDS: ZOSYN 3.375 GM Q8H per EXTENDED INFUSION IVPB SCH ×2 (22:42)
[2018-11-01] MEDS: NS 0.9% 1000 ML** 1,000 ML IV SCH (22:52)
[2018-11-01] MEDS: Senna TAB PO SCH (22:58)
[2018-11-02] MEDS: KCL premix 10MEQ/50 ML x 3 RUNS IV SCH ×3 (01:07→05:20)
[2018-11-02] MEDS: Morphine 10 MG/ML VIAL (1 ml) IV PRN ×3 (02:03→12:23)
[2018-11-02] MEDS ORDERED: NS 0.9% 1000 ML/HR X 1 BAG (TOTAL 1000 ML) IV ONE (03:00)
[2018-11-02] MEDS: Acetaminophen TAB* 325 MG PO PRN (03:23)
[2018-11-02 03:28] LABS: Albumin 2.3 g/dL (3.2-5.2); Albumin/Globulin Ratio 0.7 (1-3); BUN/Creatinine Ratio 15.3 (8-20); Calcium 7.9 mg/dL (8.6-10.3); Globulin 3.4 g/dL (2-4); Potassium 3.2 mmol/L (3.5-5.0); Total Protein 5.7 g/dL (6.4-8.9)
[2018-11-02 03:31] LABS: Total Bilirubin 12.4 mg/dL (0.2-1.0)
[2018-11-02 03:40] LABS: ABS Basophils 0 10^3/ul (0-0.2); ABS Eosinophils 0 10^3/ul (0-0.6); ABS Lymphocytes 0.4 10^3/ul (1.0-4.8); ABS Monocytes 0.3 10^3/ul (0-0.8); ABS Neutrophils 6.1 10^3/ul (1.5-7.7); ABS Nucleated RBC 0 10^3/ul; Hematocrit 29 % (36-46); Hemoglobin 9.5 g/dL (14.0-18.0); Mean Corpuscular HGB Conc 33 g/dL (31-36); Mean Corpuscular Hemoglobin 27 pg (27-31); Mean Corpuscular Volume 83 fL (80-94); Platelet Count 84 10^3/uL (150-450); Red Blood Count 3.49 10^6 /uL (4.18-5.48); Red Cell Distribution Width 22 % (10.5-15); White Blood Count 6.8 10^3/uL (3.5-10.8)
[2018-11-02 04:03] LABS: Eosinophil % 0.2 %; Lymphocyte % 5.7 %; Nucleated Red Blood Cells % 0
[2018-11-02 04:04] LABS: Polychromasia 1+
[2018-11-02] MEDS: ZOSYN 3.375 GM Q8H per EXTENDED INFUSION IVPB SCH ×6 (06:31→20:58)
[2018-11-02] MEDS: Senna TAB PO SCH ×4 (07:47→20:27)
[2018-11-02] MEDS: Polyethylene Glycol 3350* 17 GM PACKET PO SCH (07:47)
--- NOTE | 2018-11-02 09:22 | PN ---
Progress Note - Progress Note Date of Service: 11/02/18 SOAP: Subjective: [Overnight [place] developed fever, tachycardia and hypotension. Blood cultures collected, received a fluid bolus and lactic acid measured at 3.6, repeat 2.9. This am, he reports feeling the best he has in a couple of weeks. He has some pain at the site of the drain placement. No n/v/d. No further fevers or chills. Appetite good. Initial output from the biliary drain was quite high, ~ 1.2L in the first hour on the floor. Since then it has slowed to ~200 ml/h. Nonbloody. Initial bile removed during the procedure appeared purulent and was sent for culture. Drainage overnight continues to be intermittently purulent.] Objective: [ Acetaminophen (Tylenol Tab*) 650 mg PO Q4H PRN PRN Reason: FEVER/PAIN Last Admin: 11/02/18 03:23 Dose: 650 mg Docusate Sodium (Colace Cap*) 100 mg PO TID PRN PRN Reason: CONSTIPATION Enoxaparin Sodium (Lovenox(*)) 40 mg SUBCUT Q24H [facility] Last Admin: 11/01/18 21:04 Dose: Not Given Sodium Chloride (Ns 0.9% 1000 Ml) 1,000 mls @ 100 mls/hr IV PER RATE [facility] Last Admin: 11/01/18 22:52 Dose: 100 mls/hr Piperacillin Sod/Tazobactam (Sod 3.375 gm/ Sodium Chloride) 100 mls @ 25 mls/ hr IVPB Q8H [facility] Last Admin: 11/02/18 06:31 Dose: 25 mls/hr Morphine Sulfate (Morphine 10 Mg/Ml Vial (1 Ml)) 5 mg IV Q4H PRN PRN Reason: PAIN Last Admin: 11/02/18 07:47 Dose: 5 mg Ondansetron HCl (Zofran Tab*) 4 mg PO Q6H PRN PRN Reason: NAUSEA Last Admin: 11/01/18 23:30 Dose: 4 mg Pharmacy Consult (Zosyn Per Pharmacy*) 1 note FOLLOW UP .ZOSYN PER PHARMACY [facility] Polyethylene Glycol/Electrolytes (Miralax*) 17 gm PO DAILY [facility] Last Admin: 11/02/18 07:47 Dose: 17 gm Prochlorperazine (Compazine Tab*) 10 mg PO Q6H PRN PRN Reason: NAUSEA Senna (Senokot Tab*) 1 tab PO TID [facility] Last Admin: 11/02/18 08:09 Dose: Not Given Tramadol HCl (Ultram*) 50 mg PO Q6HR PRN PRN Reason: PAIN Laboratory Results - last 24 hr 11/02/18 11/02/18 11/02/18 02:51 02:54 02:54 WBC 6.8 RBC 3.49 L Hgb 9.5 L Hct 29 L MCV 83 MCH 27 MCHC 33 RDW 22 H Plt Count 84 L MPV 8.0 Neut % (Auto) 89.0 Lymph % (Auto) 5.7 Canyon % (Auto) 4.8 Eos % (Auto) 0.2 Baso % (Auto) 0.3 Absolute Neuts (auto) 6.1 Absolute Lymphs (auto) 0.4 L Absolute Monos (auto) 0.3 Absolute Eos (auto) 0 Absolute Basos (auto) 0 Absolute Nucleated RBC 0 Nucleated RBC % 0 Polychromasia 1+ Anisocytosis 2+ Elliptocytes 1+ Sodium 132 L Potassium 3.2 L Chloride 101 Carbon Dioxide 21 L Anion Gap 10 BUN 15 Creatinine 0.98 Est GFR ( Amer) 98.0 Est GFR (Non-Af Amer) 81.0 BUN/Creatinine Ratio 15.3 Glucose 103 H Lactic Acid 3.6 H* Calcium 7.9 L Total Bilirubin 12.40 H* AST 65 H ALT 30 Alkaline Phosphatase 300 H Total Protein 5.7 L Albumin 2.3 L Globulin 3.4 Albumin/Globulin Ratio 0.7 L 11/02/18 05:10 WBC RBC Hgb Hct MCV MCH MCHC RDW Plt Count MPV Neut % (Auto) Lymph % (Auto) Canyon % (Auto) Eos % (Auto) Baso % (Auto) Absolute Neuts (auto) Absolute Lymphs (auto) Absolute Monos (auto) Absolute Eos (auto) Absolute Basos (auto) Absolute Nucleated RBC Nucleated RBC % Polychromasia Anisocytosis Elliptocytes Sodium Potassium Chloride Carbon Dioxide Anion Gap BUN Creatinine Est GFR ( Amer) Est GFR (Non-Af Amer) BUN/Creatinine Ratio Glucose Lactic Acid 2.9 H* Calcium Total Bilirubin AST ALT Alkaline Phosphatase Total Protein Albumin Globulin Albumin/Globulin Ratio Vital Signs: Temp Pulse Resp BP Pulse Ox 97.8 F 88 22 105/70 99 04/13/19 07:20 11/02/18 07:20 11/02/18 07:47 11/02/18 07:39 11/02/18 07:20 Exam: Gen: Mildly ill appearing 52 yo male in NAD. Sitting up at the side of the bed after breakfast HEENT: MMM, scleral icterus CV: RRR, no m/r/g Resp: CTA, no w/c/r Abd: soft, nonTTP with the exception of the region around the biliary drain, clean and intact dressing. Biliary tube draining slightly opaque greenish fluid with some sediment. Ext: 1-2+ LE edema Skin: jaundice, no rash] Assessment: [52 yo male with metastatic CRC who is under the care of Dr Acosta who presented with worsening jaundice despite biliary stent exchange. He went for urgent percutaneous biliary drain yesterday evening with Dr Rees.] Plan: [1. Sepsis secondary to cholangitis - febrile, tachycardic and hypotensive overnight - responded to fluid bolus and much improved this am - blood and bile cultures are pending - cont Zosyn 2. Biliary obstruction - progressive disease v obstructed biliary stents - Tbili stable following percutaneous drain placement 3. Metastatic CRC - CT C/A/P for restaging purposes Dispo: anticipate dc home tomorrow if he remains asx over the next 24h]
[2018-11-02 10:28] LABS: BUN/Creatinine Ratio 14.8 (8-20); EGFR Non-African American 59.5 (>60)
[2018-11-02 10:32] LABS: Magnesium 1.8 mg/dL (1.9-2.7)
[2018-11-02] MEDS ORDERED: Magnesium Sulfate 2 GM IV* 2 GM/50 ML BAG IVPB ONE (10:45)
[2018-11-02] MEDS ORDERED: Iohexol 300* (CONTRAST) 10 ML SDV IV ONE (12:05)
[2018-11-02] MEDS: NS 0.9% 1000 ML** 1,000 ML IV SCH (12:25)
[2018-11-02] MEDS ORDERED: Morphine 10 MG/ML VIAL (1 ml) IV ONE ×2 (14:00→15:00)
[2018-11-02] MEDS: Enoxaparin(*) 40 MG/0.4 ML SYR SUBCUT SCH (17:25)
[2018-11-03] MEDS: Morphine 10 MG/ML VIAL (1 ml) IV PRN ×3 (00:46→12:38)
[2018-11-03] MEDS: NS 0.9% 1000 ML** 1,000 ML IV SCH ×2 (02:41→16:44)
[2018-11-03] MEDS: ZOSYN 3.375 GM Q8H per EXTENDED INFUSION IVPB SCH ×6 (05:51→21:01)
[2018-11-03 06:20] LABS: ABS Basophils 0 10^3/ul (0-0.2); ABS Eosinophils 0.1 10^3/ul (0-0.6); ABS Lymphocytes 0.6 10^3/ul (1.0-4.8); ABS Monocytes 0.8 10^3/ul (0-0.8); ABS Neutrophils 5.8 10^3/ul (1.5-7.7); ABS Nucleated RBC 0 10^3/ul; Eosinophil % 0.8 %; Hematocrit 28 % (36-46); Hemoglobin 9.2 g/dL (14.0-18.0); Mean Corpuscular HGB Conc 33 g/dL (31-36); Mean Corpuscular Hemoglobin 27 pg (27-31); Mean Corpuscular Volume 83 fL (80-94); Mean Platelet Volume 7.7 fL (7.4-10.4); Nucleated Red Blood Cells % 0; Platelet Count 91 10^3/uL (150-450); Red Blood Count 3.35 10^6 /uL (4.18-5.48); Red Cell Distribution Width 22 % (10.5-15); White Blood Count 7.3 10^3/uL (3.5-10.8)
[2018-11-03 06:22] LABS: Albumin 2.1 g/dL (3.2-5.2); Albumin/Globulin Ratio 0.7 (1-3); BUN/Creatinine Ratio 17.9 (8-20); Calcium 8.1 mg/dL (8.6-10.3); EGFR African American 62.3 (>60); EGFR Non-African American 51.5 (>60); Globulin 3.2 g/dL (2-4); Potassium 4.2 mmol/L (3.5-5.0); Total Protein 5.3 g/dL (6.4-8.9)
[2018-11-03 06:24] LABS: Magnesium 2.3 mg/dL (1.9-2.7)
[2018-11-03] MEDS: Polyethylene Glycol 3350* 17 GM PACKET PO SCH (08:51)
[2018-11-03] MEDS: Senna TAB PO SCH ×3 (08:52→21:02)
[2018-11-03] MEDS: oxyCODONE TAB* 5 MG TAB PO PRN ×3 (11:24→21:01)
--- NOTE | 2018-11-03 11:29 | PN ---
Progress Note - Progress Note Date of Service: 11/03/18 SOAP: Subjective: [Had a lot of pain following CT yesterday. Pain is exacerbated by lying flat. He slept in the recliner last night. Pain is all around drain site, no generalized abd pain. Continuing to eat well. No n/v/d/c. LE is worse, but not painful.] Objective: [ Acetaminophen (Tylenol Tab*) 650 mg PO Q4H PRN PRN Reason: FEVER/PAIN Last Admin: 11/02/18 03:23 Dose: 650 mg Docusate Sodium (Colace Cap*) 100 mg PO TID PRN PRN Reason: CONSTIPATION Enoxaparin Sodium (Lovenox(*)) 40 mg SUBCUT Q24H [facility] Last Admin: 11/02/18 17:25 Dose: 40 mg Sodium Chloride (Ns 0.9% 1000 Ml) 1,000 mls @ 100 mls/hr IV PER RATE [facility] Last Admin: 11/03/18 02:41 Dose: 100 mls/hr Piperacillin Sod/Tazobactam (Sod 3.375 gm/ Sodium Chloride) 100 mls @ 25 mls/ hr IVPB Q8H [facility] Last Admin: 11/03/18 05:51 Dose: 25 mls/hr Morphine Sulfate (Morphine 10 Mg/Ml Vial (1 Ml)) 5 mg IV Q4H PRN PRN Reason: PAIN Last Admin: 11/03/18 08:51 Dose: 5 mg Ondansetron HCl (Zofran Tab*) 4 mg PO Q6H PRN PRN Reason: NAUSEA Last Admin: 11/01/18 23:30 Dose: 4 mg Oxycodone HCl (Roxycodone Tab*) 5 mg PO Q4H PRN PRN Reason: PAIN Last Admin: 11/03/18 11:24 Dose: 5 mg Pharmacy Consult (Zosyn Per Pharmacy*) 1 note FOLLOW UP .ZOSYN PER PHARMACY [facility] Polyethylene Glycol/Electrolytes (Miralax*) 17 gm PO DAILY [facility] Last Admin: 11/03/18 08:51 Dose: 17 gm Prochlorperazine (Compazine Tab*) 10 mg PO Q6H PRN PRN Reason: NAUSEA Senna (Senokot Tab*) 1 tab PO TID [facility] Last Admin: 11/03/18 08:52 Dose: Not Given Laboratory Results - last 24 hr 11/02/18 11/03/18 11/03/18 14:00 05:42 05:42 WBC 7.3 RBC 3.35 L Hgb 9.2 L Hct 28 L MCV 83 MCH 27 MCHC 33 RDW 22 H Plt Count 91 L MPV 7.7 Neut % (Auto) 79.4 Lymph % (Auto) 8.0 Nash % (Auto) 11.6 Eos % (Auto) 0.8 Baso % (Auto) 0.2 Absolute Neuts (auto) 5.8 Absolute Lymphs (auto) 0.6 L Absolute Monos (auto) 0.8 Absolute Eos (auto) 0.1 Absolute Basos (auto) 0 Absolute Nucleated RBC 0 Nucleated RBC % 0 Sodium 131 L Potassium 4.2 Chloride 100 L Carbon Dioxide 21 L Anion Gap 10 BUN 26 H Creatinine 1.45 H Est GFR ( Amer) 62.3 Est GFR (Non-Af Amer) 51.5 BUN/Creatinine Ratio 17.9 Glucose 106 H Lactic Acid 2.1 H* Calcium 8.1 L Magnesium 2.3 Total Bilirubin 12.60 H* AST 66 H ALT 31 Alkaline Phosphatase 261 H Total Protein 5.3 L Albumin 2.1 L Globulin 3.2 Albumin/Globulin Ratio 0.7 L Vital Signs: Temp Pulse Resp BP Pulse Ox 97.1 F 99 16 104/59 100 11/02/18 23:34 11/03/18 03:17 11/03/18 11:25 11/03/18 03:17 11/03/18 03:17 Exam: Gen: Mildly ill appearing, but in NAD. Accompanied by his HEENT: scleral icterus, MMM Resp: CTA, no w/c/r CV: RRR, no m/r/g Abd: soft, nonTTP, biliary drain in R flank with clean and intact dressing Ext: 2+ LE edema Skin: jaundice CT C/A/P - personally reviewed, RLL infiltrate, lung nodules may be slightly larger in size, liver masses appear stable, hepatic ducts appear dilated by improved [Assessment: [52 yo male with metastatic CRC who is under the care of Dr Acosta who presented with worsening jaundice despite biliary stent exchange. He went for urgent percutaneous biliary drain 11/[address] Rees.] Plan: [1. Sepsis secondary to cholangitis - 1/2 blood culture bottle from his port now growing gram positive cocci in chains, peripheral cultures negative - biliary culture is growing Enterobacter cloacae - CT suggestive of RLL PNA, he is asx from this, Zosyn should cover most respiratory pathogens as well - given bile growing gram neg pathogens and blood culture growing gram positive , question if blood culture result is a contaminant and will await final results. Gram positive pathogen could be a lung pathogen as well, but seems less likely given the clinical context - cont Zosyn 2. Biliary obstruction - restaging scans show stable disease, likely source of obstruction due to obstructed biliary stents perhaps due to thick purulent material from infected bile - Tbili stable following percutaneous drain placement - focus on pain control, start oxycodone, cont prn IV morphine for severe pain 3. Metastatic CRC - CT C/A/P shows essentially stable disease - Treatment will be held at this time for appropriate antibiotic therapy, next steps will depend on his trend in bilirubin over the next 1-2 weeks Dispo: anticipate dc home tomorrow, pending final blood culture results to determine need for oral v IV abx
[2018-11-03] MEDS: Enoxaparin(*) 40 MG/0.4 ML SYR SUBCUT SCH (16:44)
[2018-11-03 23:02] LABS: Total Bilirubin 12.6 mg/dL (0.2-1.0)
[2018-11-04] MEDS: Acetaminophen TAB* 325 MG PO PRN (00:12)
[2018-11-04] MEDS: oxyCODONE TAB* 5 MG TAB PO PRN ×3 (00:57→13:13)
[2018-11-04] MEDS: NS 0.9% 1000 ML** 1,000 ML IV SCH (02:44)
[2018-11-04] MEDS: ZOSYN 3.375 GM Q8H per EXTENDED INFUSION IVPB SCH ×6 (04:54→21:11)
[2018-11-04 05:58] LABS: ABS Basophils 0 10^3/ul (0-0.2); ABS Eosinophils 0.2 10^3/ul (0-0.6); ABS Lymphocytes 0.7 10^3/ul (1.0-4.8); ABS Monocytes 0.7 10^3/ul (0-0.8); ABS Neutrophils 3.7 10^3/ul (1.5-7.7); ABS Nucleated RBC 0 10^3/ul; Eosinophil % 4.6 %; Hematocrit 25 % (36-46); Hemoglobin 8.4 g/dL (14.0-18.0); Lymphocyte % 12.7 %; Mean Corpuscular HGB Conc 33 g/dL (31-36); Mean Corpuscular Hemoglobin 27 pg (27-31); Mean Corpuscular Volume 82 fL (80-94); Mean Platelet Volume 7.5 fL (7.4-10.4); Nucleated Red Blood Cells % 0.1; Platelet Count 88 10^3/uL (150-450); Red Blood Count 3.08 10^6 /uL (4.18-5.48); Red Cell Distribution Width 21 % (10.5-15); White Blood Count 5.3 10^3/uL (3.5-10.8)
[2018-11-04 05:59] LABS: Albumin 1.9 g/dL (3.2-5.2); Albumin/Globulin Ratio 0.7 (1-3); BUN/Creatinine Ratio 29.5 (8-20); Calcium 7.6 mg/dL (8.6-10.3); EGFR African American 101.5 (>60); EGFR Non-African American 83.9 (>60); Globulin 2.9 g/dL (2-4); Magnesium 2.1 mg/dL (1.9-2.7); Potassium 3.4 mmol/L (3.5-5.0); Total Bilirubin 11.4 mg/dL (0.2-1.0); Total Protein 4.8 g/dL (6.4-8.9)
[2018-11-04] MEDS: Senna TAB PO SCH ×4 (07:58→21:17)
[2018-11-04] MEDS: Polyethylene Glycol 3350* 17 GM PACKET PO SCH (08:08)
[2018-11-04] MEDS: Enoxaparin(*) 40 MG/0.4 ML SYR SUBCUT SCH (16:56)
--- NOTE | 2018-11-04 21:40 | CONS ---
CONSULTATION REPORT: DATE OF CONSULT: 11/04/18 REQUESTING PHYSICIAN: Dr. Ritter. CONSULTING SERVICE: Infectious Disease. REASON FOR CONSULT: Bacteremia. IMPRESSION: 1. Fever, bacteremia, 1 of 4 bottles growing Streptococcus anginosus. He does have a port. It is 1 of 2 bottles from the port. It could be contaminant. It could be a port infection. 2. Biliary obstruction due to metastatic disease, status post biliary drain. Biliary fluids grew Enterobacter cloacae. 3. Stage 4 colon cancer with liver metastasis, treated with chemotherapy. Previous biliary stents, which have apparently obstructed again. 4. Thrombocytopenia. RECOMMENDATION: Agree with Zosyn to cover organisms that are growing. He has repeat cultures from the blood which are sent. A consideration to cover a port infection would be a few more days of infusions and attempt to sterilize it, which would also likely cover the enterobacter that is growing. Reasonable option would be Levaquin to cover both when he is ready for discharge, that assumes his fever resolves and his followup cultures are negative. HISTORY OF PRESENT ILLNESS: This is a 52-year-old man with stage IV colon cancer, who had biliary stents last summer, enterococcus bacteremia, and probable stent infection and then had done relatively well on multiple lines of chemotherapy, then more recently developed obstruction again with bilirubin of 14. Dr. Rees placed an external biliary drain, which was cultured and grew enterobacter. Blood cultures taken at the time of admission on 11/02/18 was 1 of 4 bottles growing strep anginosus. He had a fever last night of 38.5, none today. His appetite is fair. Energy is low, not having diarrhea. He has had worsening leg swelling, did have a significant amount of hydration while he is here. He has no hardware present other than the port and a fixations screw in his shoulder. PAST MEDICAL HISTORY: 1. Hypertension. 2. Obesity. 3. Right shoulder surgery. 4. Stage IV colon cancer, treated with chemotherapy with metastatic disease to the liver. He now has an external biliary drain. MEDICATIONS: 1. Tylenol as needed. 2. Docusate as needed. 3. Enoxaparin. 4. Morphine as needed. 5. Zofran as needed. 6. Oxycodone as needed. 7. Zosyn 3.375 g every 6 hours. 8. Senna. 9. Compazine as needed. FAMILY HISTORY: No recurrent infections or tuberculosis. SOCIAL HISTORY: He lives with his and children at [place]. No travel. No sick contacts. REVIEW OF SYSTEMS: All negative except as noted above from a 14-point review. PHYSICAL EXAM: Vital Signs: Temperature 36.4, heart rate 90, respiratory rate 14, blood pressure 143/68, oxygen saturation 99% on room air. General: He is awake, not in distress. Neurologic: He is oriented x3, follows all commands. HEENT: There is no conjunctival hemorrhage. Neck: Neck is supple without mass. Heart: Regular rate and rhythm without murmurs, rubs, or gallops. Lungs : Clear to auscultation bilaterally. Chest: Has a right chest port without erythema or tenderness. Skin: There is no rash. He does have scleral icterus and jaundice in the face and to the arms. Musculoskeletal: There is no spine tenderness to palpation or joint synovitis. DIAGNOSTIC STUDIES/LAB DATA: White blood cell count 5, hemoglobin 8.4, platelets 88. Creatinine 0.9, bilirubin 11.4. ALT 27. Please see impressions and recommendations outlined above. Thanks for asking me to see Mr. Allen in consultation. [id number]/[facility] #: [id number] MTDD
[2018-11-05] MEDS: oxyCODONE TAB* 5 MG TAB PO PRN ×2 (01:49→22:02)
[2018-11-05] MEDS: ZOSYN 3.375 GM Q8H per EXTENDED INFUSION IVPB SCH ×6 (05:26→22:00)
[2018-11-05] MEDS: Acetaminophen TAB* 325 MG PO PRN (05:40)
[2018-11-05 05:47] LABS: ABS Basophils 0 10^3/ul (0-0.2); ABS Eosinophils 0.3 10^3/ul (0-0.6); ABS Lymphocytes 0.6 10^3/ul (1.0-4.8); ABS Monocytes 0.6 10^3/ul (0-0.8); ABS Neutrophils 4.9 10^3/ul (1.5-7.7); ABS Nucleated RBC 0 10^3/ul; Eosinophil % 4.1 %; Hematocrit 26 % (36-46); Hemoglobin 8.6 g/dL (14.0-18.0); Lymphocyte % 9.4 %; Mean Corpuscular HGB Conc 33 g/dL (31-36); Mean Corpuscular Hemoglobin 27 pg (27-31); Mean Corpuscular Volume 81 fL (80-94); Mean Platelet Volume 7.6 fL (7.4-10.4); Nucleated Red Blood Cells % 0; Platelet Count 114 10^3/uL (150-450); Red Blood Count 3.17 10^6 /uL (4.18-5.48); Red Cell Distribution Width 21 % (10.5-15); White Blood Count 6.4 10^3/uL (3.5-10.8)
[2018-11-05 06:05] LABS: Albumin 1.9 g/dL (3.2-5.2); Albumin/Globulin Ratio 0.6 (1-3); BUN/Creatinine Ratio 32.4 (8-20); Calcium 7.7 mg/dL (8.6-10.3); EGFR African American 142.1 (>60); EGFR Non-African American 117.4 (>60); Globulin 3.1 g/dL (2-4); Potassium 3.3 mmol/L (3.5-5.0); Total Bilirubin 11.5 mg/dL (0.2-1.0)
[2018-11-05] MEDS: Senna TAB PO SCH ×3 (08:58→22:01)
[2018-11-05] MEDS: Polyethylene Glycol 3350* 17 GM PACKET PO SCH (08:58)
[2018-11-05] MEDS: chlorproMAZINE TAB* 25 MG PO PRN ×2 (13:15→22:12)
--- NOTE | 2018-11-05 15:37 | PN ---
Progress Note - Progress Note Date of Service: 11/05/18 SOAP: Subjective: CC: bacteremia HPI: 52 year old man with biliary obstruction due to metastatic colon cancer, hx biliary stent, now with external biliary drains. Had fever 2 nights ago, none last night. No rash or diarrhea. Appetite fair, he is tired. Objective: Vital Signs Temp 36.6 C 11/05/18 15:27 Pulse 92 11/05/18 15:27 Resp 20 11/05/18 15:27 BP 110/53 11/05/18 15:27 Pulse Ox 98 11/05/18 15:27 Intake & Output 11/04/18 11/05/18 11/05/18 18:59 06:59 18:59 Intake Total 1040 0 1040 Output Total 75 200 Balance 965 -200 1040 Intake: Oral 1040 0 1040 Output: Pigtail Drain 75 200 Other: Estimated Void Medium # Bowel Movements 0 0 # Voids 1 Gen:awake, no distress HEENT: no thrush Heart:RRR no murmur Lungs:CTA BL Abd:+BS NTND soft, RUQ drain Skin: no rash Laboratory Results - last 24 hr 11/05/18 11/05/18 05:40 05:40 WBC 6.4 RBC 3.17 L Hgb 8.6 L Hct 26 L MCV 81 MCH 27 MCHC 33 RDW 21 H Plt Count 114 L MPV 7.6 Neut % (Auto) 76.5 Lymph % (Auto) 9.4 Richardson % (Auto) 9.7 Eos % (Auto) 4.1 Baso % (Auto) 0.3 Absolute Neuts (auto) 4.9 Absolute Lymphs (auto) 0.6 L Absolute Monos (auto) 0.6 Absolute Eos (auto) 0.3 Absolute Basos (auto) 0 Absolute Nucleated RBC 0 Nucleated RBC % 0 Sodium 132 L Potassium 3.3 L Chloride 101 Carbon Dioxide 22 Anion Gap 9 BUN 23 Creatinine 0.71 Est GFR ( Amer) 142.1 Est GFR (Non-Af Amer) 117.4 BUN/Creatinine Ratio 32.4 H Glucose 81 Calcium 7.7 L Total Bilirubin 11.50 H AST 58 H ALT 25 Alkaline Phosphatase 227 H Total Protein 5.0 L Albumin 1.9 L Globulin 3.1 Albumin/Globulin Ratio 0.6 L Microbiology 11/04/18 11:40 Aerobic Blood Culture - Preliminary Blood Line No Growth Day 1 Anaerobic Blood Culture - Preliminary No Growth Day 1 11/04/18 10:39 Aerobic Blood Culture - Preliminary Blood Line No Growth Day 1 Anaerobic Blood Culture - Preliminary No Growth Day 1 11/04/18 10:39 Aerobic Blood Culture - Preliminary Blood Venous No Growth Day 1 Anaerobic Blood Culture - Preliminary No Growth Day 1 11/01/18 19:00 Gram Stain - Final Gallbladder Fluid Body Fluid Culture - Final Enterobacter Cloacae 11/02/18 03:00 Aerobic Blood Culture - Final Blood Line Streptococcus Anginosus Anaerobic Blood Culture - Preliminary No Growth Day 3 11/02/18 02:44 Aerobic Blood Culture - Preliminary Blood Venous No Growth Day 3 Anaerobic Blood Culture - Preliminary No Growth Day 3 Assessment: 1. biliary obstruction with enterobacter in biliary fluid, s/p biliary drain 2. Strep anginosis 1 of 4 BC bottles, fu cultures negative so far, may have port infection 3. metastatic colon cancer, chemotherapy Plan: 1. continue zosyn while here, tomorrow will be day 6 which is sufficient for attempt to sterilize port in event it is infected, then levaquin 750 mg PO daily for 7 more days
[2018-11-05] MEDS: Enoxaparin(*) 40 MG/0.4 ML SYR SUBCUT SCH (16:15)
[2018-11-06] MEDS: ZOSYN 3.375 GM Q8H per EXTENDED INFUSION IVPB SCH ×2 (05:15)
[2018-11-06] MEDS: Morphine 10 MG/ML VIAL (1 ml) IV PRN (05:31)
[2018-11-06] MEDS: chlorproMAZINE TAB* 25 MG PO PRN (05:31)
[2018-11-06 05:47] LABS: Albumin 1.8 g/dL (3.2-5.2); Albumin/Globulin Ratio 0.6 (1-3); BUN/Creatinine Ratio 33.8 (8-20); Calcium 7.8 mg/dL (8.6-10.3); EGFR African American 157.3 (>60); Globulin 3.2 g/dL (2-4); Potassium 3.1 mmol/L (3.5-5.0); Total Bilirubin 9.7 mg/dL (0.2-1.0)
[2018-11-06] MEDS: oxyCODONE TAB* 5 MG TAB PO PRN ×2 (08:07→12:07)
[2018-11-06] MEDS: Polyethylene Glycol 3350* 17 GM PACKET PO SCH (08:07)
[2018-11-06] MEDS: Senna TAB PO SCH ×2 (08:07→08:08)
--- NOTE | 2018-11-06 08:40 | PN ---
Progress Note - Progress Note Date of Service: 11/06/18 SOAP: Subjective: CC: Bacteremia HPI: Mr. Allen is a 52 yo male with PMH significant for metastatic colon cancer. Who was noted to have worsening jaundice despite biliary stent exchange and is s /p percutaneous biliary drain on 11/01. Denies fever, chills, shortness of breath , diarrhea. He reports fatigue, poor appetite and some abdominal discomfort that he describes as cramping, he thinks this may be due to the ABX. Objective: Vital Signs - 8 hr 11/06/18 11/06/18 11/06/18 00:37 02:38 02:50 Temperature 98.4 F 98.4 F Pulse Rate 96 96 Respiratory 18 19 19 Rate Blood Pressure 104/51 104/51 (mmHg) O2 Sat by Pulse 98 98 Oximetry Physical Exam: General: NAD, sitting up in a chair Neurological: Alert and oriented x4 HEENT: No thrush Cardiovascular: Heart rate regular, no murmur. Bilateral LEs with 2+ edema Respiratory: Lungs clear bilateral Abdominal: Bowel sounds present, ABD large, soft and non tender Skin: No rash seen on the exposed skin Laboratory Results - last 24 hr 11/06/18 05:20 Sodium 132 L Potassium 3.1 L Chloride 103 Carbon Dioxide 24 Anion Gap 5 BUN 22 Creatinine 0.65 L Est GFR ( Amer) 157.3 Est GFR (Non-Af Amer) 130.0 BUN/Creatinine Ratio 33.8 H Glucose 84 Calcium 7.8 L Total Bilirubin 9.70 H D AST 68 H ALT 27 Alkaline Phosphatase 244 H Total Protein 5.0 L Albumin 1.8 L Globulin 3.2 Albumin/Globulin Ratio 0.6 L Microbiology 11/02/18 02:44 Aerobic Blood Culture - Preliminary Blood Venous No Growth Day 4 Anaerobic Blood Culture - Preliminary 11/02/18 03:00 Aerobic Blood Culture - Final Blood Line Streptococcus Anginosus Anaerobic Blood Culture - Preliminary No Growth Day 4 11/04/18 11:40 Aerobic Blood Culture - Preliminary Blood Line No Growth Day 1 Anaerobic Blood Culture - Preliminary No Growth Day 1 11/04/18 10:39 Aerobic Blood Culture - Preliminary Blood Line No Growth Day 1 Anaerobic Blood Culture - Preliminary No Growth Day 1 11/04/18 10:39 Aerobic Blood Culture - Preliminary Blood Venous No Growth Day 1 Anaerobic Blood Culture - Preliminary No Growth Day 1 11/01/18 19:00 Gram Stain - Final Gallbladder Fluid Body Fluid Culture - Final Enterobacter Cloacae Assessment: 1. Biliary obstruction with enterobacter in biliary fluid. S/P biliary drain 2. Strep anginosis in 1 of 4 blood culture bottles, follow up cultures are negative to date. This may represent a port infection, has received 6 days of zosyn as of today and this should be enough time to sterilize the port in the event it was infected. 3. Metastatic colon cancer, receiving chemotherapy Plan: Continue Zosyn while here, today is day 6. At discharge will need levaquin 750 mg PO daily for 7 more days.
[2018-11-06 11:08] VITALS: BP 123/55
--- NOTE | 2018-11-06 13:53 | DS ---
CC: Dr. Acosta; Dr. Pan; Dr. Barrientos, Interventional Gastroenterology, [facility]* DISCHARGE SUMMARY: DATE OF ADMISSION: 11/01/18 DATE OF DISCHARGE: 11/06/18 PRIMARY ONCOLOGIST AND ATTENDING PHYSICIAN: Dr. Mina Acosta* (dictated by JAROCHO Mercedes). CONSULTING INFECTIOUS DISEASE SPECIALIST: Dr. Fernando Pan. DISCHARGING PROVIDER: JAROCHO Mercedes PRIMARY DISCHARGE DIAGNOSES: 1. Sepsis secondary to cholangitis. 2. Possible port site infection. 3. Biliary obstruction secondary to metastatic disease. 4. Metastatic colon cancer. DISCHARGE MEDICATIONS: 1. Docusate 100 mg p.o. 3 times daily. 2. Lasix 20 mg p.o. daily. 3. Zofran 4 mg p.o. q.6 hours as needed for nausea and vomiting. 4. MiraLAX 17 g p.o. daily. 5. Compazine 10 mg p.o. q.6 hours as needed for nausea and vomiting. 6. Senna 1 tablet p.o. 3 times daily. 7. Baclofen 10 mg p.o. 3 times daily as needed for hiccups. 8. Levaquin 750 mg p.o. daily x7 days. 9. Oxycodone 5 mg p.o. q.4 hours as needed for pain. HOSPITAL IMAGING: CT chest, abdomen, pelvis, 11/02/18, demonstrates new small right lower lobe infiltrate and associated pleural effusion, small pulmonary nodule which has progressed slightly from prior exam, multiple hepatic lesions which appear unchanged, and [id number] intrahepatic ductal distention which has improved slightly. Interval placement of percutaneous biliary drain and 2 internal biliary stents present. 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 HOSPITAL COURSE: This is a 52-year-old gentleman, who was under the care of Dr. Acosta for treatment of metastatic colon cancer with liver metastasis, who presented to the oncology clinic for routine followup and was noted to be progressively jaundiced. Labs in the oncology clinic revealed bilirubin of 12.1 , which had increased from 4.5 just 10 days earlier. The patient has had multiple prior biliary stents placed by Dr. Barrientos at [facility], most recent was approximately 2 weeks prior to this office visit. The patient had complaints of some chills that had been ongoing for a week prior to his visit which he had blamed on taking Tamiflu for flu exposure on a prophylactic basis. No increased right upper quadrant pain and no other new symptoms apart from progressive jaundice. The patient subsequently underwent urgent percutaneous biliary drain placement with Dr. Wally Rees. Initial biliary fluids appeared purulent and were sent for culture eventually growing Enterobacter cloacae. The patient initially had quite high output from his biliary drain which flowed throughout his hospital stay. The night of the biliary drain placement, the patient spiked a fever, became hypotensive, and tachycardic. Blood cultures were drawn at that time which eventually grew Streptococcus anginosus from one of the bottles that were taken from his port line. Dr. Fernando Pan was consulted, who recommended continuing the Zosyn as the strep species from the line may represent the port site infection versus contaminant but more likely an infection. The patient had no further fevers during his hospitalization. His bilirubin was slow to improve, but at the time of discharge is down to 9.7 with stable and near normal transaminases. The patient did struggle somewhat with pain during his hospitalization but was reasonably controlled with oxycodone. DISPOSITION AND FOLLOWUP PLAN: The patient is being discharged to home in stable condition where he lives with his . Plan is for an additional 7 days of Levaquin per Dr. Pan's recommendation. Biliary drain is to remain in place and will be flushed by his with sterile saline twice daily. Received instructions to contact oncology office with new fevers or increasing pain. Further followup in regards to the biliary drain will include potentially exchanging the drain for an alternate catheter per Dr. Rees's recommendations and will contact Dr. Barrientos, who has performed his prior biliary stent, for his recommendations as well. He will follow up with Dr. Acosta in the office in exactly 1 week on 11/13/18, at which point labs will be repeated and the decision will be made as to whether to resume his prior therapy at that time. JAROCHO MERCEDES [id number]/[facility] #: [id number] [facility]ITAL[facility]
== END 2018-11-06 12:45 | disposition home or self-care (01) | DRG 919 ==
LOC: MED 16:13 → OBSVTOIN 11-02 09:23
PROVIDERS: ADMIT Internal Medicine Hematology & Oncology; ATTEND Internal Medicine Hematology & Oncology
PROC: 0F9930Z Drainage of Common Bile Duct with Drainage Device, Percutaneous Approach (ICD-10-PCS; principal; 2018-11-02)
DX: T85.79XA Infection and inflammatory reaction due to other internal prosthetic devices, implants and grafts, initial encounter (principal); A40.8 Other streptococcal sepsis; K83.1 Obstruction of bile duct; C18.9 Malignant neoplasm of colon, unspecified; C78.7 Secondary malignant neoplasm of liver and intrahepatic bile duct; K83.09 Other cholangitis; J90 Pleural effusion, not elsewhere classified; Y82.8 Other medical devices associated with adverse incidents; Y92.9 Unspecified place or not applicable; B96.89 Other specified bacterial agents as the cause of diseases classified elsewhere; D69.6 Thrombocytopenia, unspecified; R91.1 Solitary pulmonary nodule; I10 Essential (primary) hypertension; E66.9 Obesity, unspecified; Z80.0 Family history of malignant neoplasm of digestive organs; Z68.34 Body mass index [BMI] 34.0-34.9, adult
CPT/HCPCS: 36415; 47533; 71260; 74177; 76705; 80048; 80053; 83605; 83735; 85025; 87040; 87070; 87076; 87077; 87186; 87205; 99223; 99232; 99239; A9270-GY; C1725; J1642; J1650; J2270; J2543; J3010; J3475; J3480; Q9967

== ENCOUNTER 2018-11-09 20:53 | Inpatient (IN) | payer OTHER ==
[2018-11-09] MEDS ORDERED: NS 0.9% 1000 ML** 2,000 ML IV ONE (21:08)
--- NOTE | 2018-11-09 21:30 | ED ---
Abdominal Pain/Male - HPI Summary HPI Summary: Pt is a 52 y/o M presenting to the ED brought in by EMS for abdominal pain. The pt gives a limited hx due to mild lethargy, but is alert and speaking slowly at bedside. He had been recently admitted to get a bile drain placed, and his states he has been in extreme amounts of pain until last night. His also states he vomited this morning and last urinated around 0600 this date, and his biliary drain has been emptied about 10-12 times. The bile has changed from a more orange color to now green, and the pts states there has also been some white sediment. She spoke with Dr. Sethi a couple of times today who recommended they come into the ED. - History of Current Complaint Chief Complaint: EDAbdPain Stated Complaint: COMPLICATIONS FROM CANCER PER EMS Time Seen by Provider: 11/09/18 21:06 Hx Obtained From: Patient, Family/Sports Media - Onset/Duration: Gradual Onset, Lasting Days, Still Present Timing: Constant, Lasting Days Severity Initially: Moderate Severity Currently: Moderate Pain Intensity: 4 Pain Scale Used: 0-10 Numeric Location: Diffuse Radiates: No Aggravating Factor(s): Nothing Alleviating Factor(s): Nothing Associated Signs And Symptoms: Positive: Decreased Appetite, Vomiting, Other - Allergies/Home Medications Allergies/Adverse Reactions: Allergies Allergy/AdvReac Type Severity Reaction Status Date / Time No Known Allergies Allergy Verified 09/25/18 10:14 Home Medications: Home Medications Chemo Med 11/09/18 [History] Potassium Chloride [Klor-Con] 20 meq PO DAILY WITH MEAL 11/09/18 [History Confirmed 11/09/18] PMH/Surg Hx/FS Hx/Imm Hx Previously Healthy: No Endocrine/Hematology History: Denies: Hx Diabetes, Hx Thyroid Disease Cardiovascular History: Denies: Hx Hypertension, Hx Pacemaker/ICD Respiratory History: Reports: Hx Sleep Apnea Denies: Hx Asthma, Hx Chronic Obstructive Pulmonary Disease (COPD) GI History: Reports: Hx Jaundice - resolved, Other GI Disorders - pt states "fatty liver", Colon CA Denies: Hx Ulcer History: Denies: Hx Renal Disease Sensory History: Reports: Hx Contacts or Glasses Denies: Hx Hearing Aid Opthamlomology History: Reports: Hx Contacts or Glasses Psychiatric History: Denies: Hx Panic Disorder - Cancer History Cancer Type, Location and Year: COLON W/ METS Hx Chemotherapy: No - after powerport placed - Surgical History Surgery Procedure, Year, and Place: 1984 - Right shoulder surgery - torn bone cap. tonsillectomy and adenoidectomy as a child. stent placed in liver for jaundiced 07/21/17 [facility]. port placed 08/09 Hx Anesthesia Reactions: No Infectious Disease History: No Infectious Disease History: Denies: Hx Clostridium Difficile, Hx Hepatitis, Hx Human Immunodeficiency Virus (HIV), Hx of Known/Suspected MRSA, Hx Shingles, Hx Tuberculosis, Hx Known/ Suspected VRE, Hx Known/Suspected VRSA, History Other Infectious Disease, Traveled Outside the [place] in Last 30 Days - Family History Known Family History: Positive: Diabetes Negative: Cardiac Disease, Hypertension - Social History Alcohol Use: Occasionally Hx Substance Use: No Substance Use Type: Reports: None Hx Tobacco Use: No Smoking Status (MU): Never Smoked Tobacco Review of Systems Positive: Other - jaundice Positive: Abdominal Pain, Vomiting Positive: other - decreased urine output All Other Systems Reviewed And Are Negative: Yes Physical Exam - Summary Physical Exam Summary: Appearance: Jaundiced chronically ill-appearing, lying in bed comfortably in no acute distress Skin: Warm, dry, no obvious rash Eyes: sclera anicteric, no conjunctival pallor, eyes jaundiced ENT: mucous membranes moist, pharynx appears normal Neck: Supple, nontender Respiratory: Clear to auscultation, no signs of respiratory distress Cardiovascular: Normal S1, S2. No murmurs. Normal distal pulses in tibial and radial bilaterally. Abdomen: Biliary drain from RUQ, site of insertion is clean and dry, drain is producing bilious fluid, does not look purulent. Abd is obese but generally soft without focal tenderness, normal active bowel sounds present Musculoskeletal: Normal, Strength/ROM Intact Neurological: A&Ox3, awake and alert, mentation is normal, speech is fluent and appropriate Psychiatric: affect is normal, does not appear anxious or depressed Triage Information Reviewed: Yes Vital Signs On Initial Exam: Initial Vitals Temp Pulse Resp BP Pulse Ox 99.0 F 100 19 90/48 94 11/09/18 20:59 11/09/18 20:59 11/09/18 20:59 11/09/18 20:59 11/09/18 20:59 Vital Signs Reviewed: Yes Diagnostics - Vital Signs Vital Signs Temp Pulse Resp BP Pulse Ox 11/09/18 20:59 99.0 F 100 19 90/48 94 - Laboratory Result Diagrams: 11/10/18 05:00 11/10/18 05:00 Lab Statement: Any lab studies that have been ordered have been reviewed, and results considered in the medical decision making process. Abdominal Pain Male Course/Dx - Course Course Of Treatment: Pt is a 52 y/o M presenting to the ED with a chief complaint of abd pain. He was admitted recently to get a bile drain placed that presently is not producing purulence and has no sign of infection. The pt's states he vomited twice, only urinated once today, and has decreased oral intake, leading to some reported lethargy. The bile in the bag also recently changed from orange to green with some white sediment present, and the pt's has emptied it 10-12 times this date. She spoke with Dr. Sethi who recommended coming into the ED. The pt's lactic acid is 6.9. I spoke with Dr. Sethi who recommended admission and speaking to the hospitalist. I spoke to Dr. Leon who will be accepting the pt for admission. - Diagnoses Provider Diagnoses: Cholangitis, Colon cancer metastasized to liver, BMI 45.0-49.9, adult, Sepsis Discharge - Sign-Out/Discharge Documenting (check all that apply): Patient Departure - Discharge Plan Condition: Guarded Disposition: ADMITTED TO [facility] - Billing Disposition and Condition Condition: GUARDED Disposition: Admitted to [facility] - Attestation Statements Document Initiated by Wander: Yes Documenting Scribe: Camila Landis Provider For Whom Wander is Documenting (Include Credential): Zhen Milian MD. Scribe Attestation: Camila Mcclendon, scribed for Zhen Milian MD. on 11/10/18 at 0550. Scribe Documentation Reviewed: Yes Provider Attestation: The documentation as recorded by the Camila saha accurately reflects the service I personally performed and the decisions made by me, Zhen Milian MD. Status of Scribe Document: Viewed Consult Consult: 2222 - Spoke with Dr. Sethi about the pt who agreed with the plan of action to admit the pt to [facility]. 2224 - Spoke with Dr. Leon who will be admitting the pt to [facility].
[2018-11-09 21:52] LABS: ABS Basophils 0 10^3/ul (0-0.2); ABS Eosinophils 0.1 10^3/ul (0-0.6); ABS Lymphocytes 1.2 10^3/ul (1.0-4.8); ABS Monocytes 0.9 10^3/ul (0-0.8); ABS Neutrophils 15.7 10^3/ul (1.5-7.7); ABS Nucleated RBC 0 10^3/ul; Eosinophil % 0.3 %; Hematocrit 31 % (36-46); Hemoglobin 9.8 g/dL (14.0-18.0); Lymphocyte % 6.8 %; Mean Corpuscular HGB Conc 32 g/dL (31-36); Mean Corpuscular Hemoglobin 26 pg (27-31); Mean Corpuscular Volume 82 fL (80-94); Mean Platelet Volume 7.8 fL (7.4-10.4); Nucleated Red Blood Cells % 0; Platelet Count 297 10^3/uL (150-450); Red Blood Count 3.74 10^6 /uL (4.18-5.48); Red Cell Distribution Width 21 % (10.5-15); White Blood Count 17.9 10^3/uL (3.5-10.8)
[2018-11-09 22:03] LABS: Albumin/Globulin Ratio 0.5 (1-3); BUN/Creatinine Ratio 16.7 (8-20); C Reactive Protein 222.18 mg/L (<8.01); Calcium 7.8 mg/dL (8.6-10.3); EGFR Non-African American 22.3 (>60); Potassium 4.7 mmol/L (3.5-5.0); Total Bilirubin 9.9 mg/dL (0.2-1.0)
[2018-11-09] MEDS ORDERED: Piperacillin/Tazobac ADVAN(*) 3.375 GM in NS 0.9% 100 ML* 100 ML IVPB ONE (22:07)
[2018-11-09] MEDS ORDERED: NS 0.9% 1000 ML** 3,000 ML IV ONE (22:25)
[2018-11-09] MEDS ORDERED: Vancomycin(*) 1,000 MG in NS 0.9% 250 ML* 250 ML IVPB SCH (22:34)
[2018-11-09] MEDS ORDERED: Vancomycin per Pharmacy* NOTE FOLLOW UP SCH (23:00)
[2018-11-09] MEDS ORDERED: Albuterol/Ipratropium NEB.SOL* Albuterol 2.5 MG/Ipratropium 0.5 MG 3 ML INH PRN (23:02)
[2018-11-09] MEDS ORDERED: Prochlorperazine TAB* 10 MG PO PRN (23:06)
[2018-11-09] MEDS ORDERED: Docusate CAP* 100 MG PO PRN (23:06)
[2018-11-09] MEDS ORDERED: oxyCODONE TAB* 5 MG TAB PO PRN (23:06)
[2018-11-09] MEDS ORDERED: Vancomycin(*) 2,000 MG in NS 0.9% 500 ML* 500 ML IVPB ONE (23:30)
[2018-11-09] MEDS ORDERED: Zosyn per Pharmacy* NOTE FOLLOW UP SCH (23:45)
[2018-11-10] MEDS ORDERED: Phytonadione Oral Solution* 5 MG/25 ML UDC PO ONE (02:54)
[2018-11-10] MEDS: Piperacillin/Tazobac ADVAN(*) 3.375 GM in NS 0.9% 100 ML* 100 ML IVPB SCH ×3 (03:29→18:12)
[2018-11-10] MEDS ORDERED: NS 0.9% 1000 ML** 1,000 ML IV SCH (03:45)
[2018-11-10 04:14] LABS: INR 4.45 (0.77-1.02)
[2018-11-10] MEDS ORDERED: NS 0.9% 1000 ML** 1,000 ML IV ONE (04:21)
--- NOTE | 2018-11-10 04:35 | HP ---
CC: Mina Acosta MD * HISTORY AND PHYSICAL: DATE OF ADMISSION: 11/09/18 TIME OF ADMISSION: 11 o'clock p.m. CHIEF COMPLAINT: Abdominal pain and lethargy. HISTORY OF PRESENT ILLNESS: This is a 52-year-old man with history of metastatic colon cancer who was recently admitted to the Oncology Service to 11/06/18 with sepsis secondary to cholangitis. During this hospitalization, a percutaneous biliary drain was placed as well as 2 internal biliary stents. His course was complicated by Strep anginosus bacteremia and Enterobacter cloacae growing from the purulent fluid from the biliary drainage. He was discharged on Sunday on p.o. levofloxacin, and he and his feel that he has gotten worse since he left the hospital and so they brought him in today after talking with Dr. Sethi. His symptoms over the past 2 days have included abdominal pain both at the site of the drain and across the epigastric area. He has not had any fevers, but he has had increased fluid in his abdomen and his legs. They believe he has gained 15 pounds since he was admitted last week. His noticed decreased urine output, increased drain output, nausea and poor appetite. He has also been sleeping very poorly and his notes some confusion where he has not seemed like himself. This constellation of symptoms led them to come to the emergency department today. PAST MEDICAL HISTORY: Hypertension, obesity. Regarding his oncologic history, he has stage 4 colon cancer that was diagnosed in 2017. He has undergone therapy with FOLFOX/Avastin and XELOX, then FOLFOX again, and most recently FOLFIRI. PAST SURGICAL HISTORY: Hepatic stents, biliary drain, and right shoulder surgery. SOCIAL HISTORY: He lives at home with his . He is a never smoker and he has 2 young children. FAMILY HISTORY: Significant for his mom had colon cancer. REVIEW OF SYSTEMS: They deny fever, diarrhea, cough or shortness of breath, orthopnea, dysuria, leg pain, chest pain, headache. Remainder of the 14-point review of systems is negative except as per the HPI. PHYSICAL EXAMINATION GENERAL: Ill-appearing man, who is in no acute distress. He responds appropriately to my questions, but occasionally falls asleep during my interview. VITAL SIGNS: Temperature 99.0, heart rate 100, respiratory rate 17, pulse ox 93 % on room air, blood pressure has ranged from 89/52 at the lowest to 111/50 in the emergency department. HEENT: Pupils equal, round, and reactive to light with scleral icterus. He is noticeably jaundiced. Oral mucosa is profoundly dry. NECK: I am unable to appreciate JVP, but it is a difficult evaluation. CHEST: He is in a regular rate and rhythm with no murmurs. His lungs are clear bilaterally. ABDOMEN: Obese, but also distended. The percutaneous biliary drain site is clean and it is draining thin green fluid. His abdomen is nontender diffusely. EXTREMITIES: He has 4+ pitting edema to the thighs. NEUROLOGIC: He has no asterixis. He is oriented x3 and a strength of 5/5 in the upper extremities and 4/5 in the lower extremities. DIAGNOSTIC STUDIES/LAB DATA: White blood cell 17.9, hemoglobin 9.8, platelets 297. Sodium 125, potassium 4.7, chloride 91, bicarb 16, BUN 50, creatinine 2.99 , glucose 69, lactic acid 6.9. Total bilirubin 9.9, AST 61, ALT 27, alk phos 314. CRP 222. ASSESSMENT AND PLAN: This is a 52-year-old man with metastatic colon cancer who was recently admitted for cholangitis status post percutaneous biliary drain , who presents to the emergency department with weight gain, abdominal pain, decreased urine output, and nausea and is found to have sepsis. 1. Systemic inflammatory response syndrome with a presumed abdominal source. Certainly, his source differential is broad, but I am more suspicious of his abdomen given his recent clinical course and biliary drain. I am ordering a stat abdomen and pelvis CT without contrast to evaluate the right upper quadrant especially and the tube placement. I have ordered blood cultures, a chest x-ray, and urinalysis as well and I am starting him on broad- spectrum antibiotics with vancomycin since he has a port and Zosyn to cover intraabdominal sources. Dr. Pan was on board at last admission and I will reconsult him. He has received volume resuscitation in the emergency department and his blood pressure remains on the low side, but has most recently been above 60s. Should his MAP drop, I would favor vasopressors through his port if this is acceptable to Oncology over more fluid resuscitation as he has clearly third spacing fluids. I will repeat his lactate and admit him to the ICU for the possible need for pressors. 2. Acute renal failure. He has had poor urinary output and appears volume deplete intravascularly on my exam despite marked third spacing. I think his renal failure could certainly be related to sepsis versus acute tubular necrosis from his hypotension, but I am also concerned about mechanical obstruction given his increased burden of disease and known mets, which the CT will also show if there is some obstruction. I have also requested a bladder ultrasound to see if he has urinary retention and we will evaluate for hydronephrosis on the CT. He has received 3 L of IV fluid in the emergency department and he needs strict in and out monitoring. Hepatorenal syndrome is another possibility. 3. Liver Failure--with synthetic dysfunction (low blood sugar and low albumin) with coagulopathy. This may be a reflection of sepsis versus ongoing disease progression 3. Metastatic colon cancer with rising bilirubin. Based on Dr. Acosta's last H and P, it did not seem that Mr. Allen was a candidate for further chemotherapy. I will defer goals of care and other treatment options to the oncology team in the morning. I will manage his pain with Dilaudid and oxycodone p.r.n. 4. Anion gap metabolic acidosis. I suspect this is most strongly related to his lactic acid, but also may be a component of his BUN. 5. Normocytic anemia, is above his baseline and he has no evidence of bleeding. 6. Chronic liver dysfunction. I have ordered a stat INR. His hypoglycemia is also probably reflective of his liver dysfunction and I am ordering fingersticks. 7. DVT prophylaxis on hold pending his INR. 8. Disposition: Admit to the ICU with guarded prognosis. [id number]/[facility] #: [id number] PAM
[2018-11-10] MEDS ORDERED: Lactated Ringers 1000 ML Bag* 1,000 ML IV SCH (05:00)
[2018-11-10 05:19] LABS: ABS Basophils 0 10^3/ul (0-0.2); ABS Eosinophils 0.1 10^3/ul (0-0.6); ABS Monocytes 0.7 10^3/ul (0-0.8); ABS Nucleated RBC 0 10^3/ul; Eosinophil % 0.6 %; Hematocrit 27 % (36-46); Hemoglobin 8.8 g/dL (14.0-18.0); Lymphocyte % 7.8 %; Mean Corpuscular HGB Conc 33 g/dL (31-36); Mean Corpuscular Hemoglobin 27 pg (27-31); Mean Corpuscular Volume 82 fL (80-94); Mean Platelet Volume 7.4 fL (7.4-10.4); Nucleated Red Blood Cells % 0; Platelet Count 201 10^3/uL (150-450); Red Blood Count 3.28 10^6 /uL (4.18-5.48); Red Cell Distribution Width 21 % (10.5-15); White Blood Count 12.8 10^3/uL (3.5-10.8)
[2018-11-10 05:24] LABS: INR 4.67 (0.77-1.02)
[2018-11-10 05:46] LABS: Albumin 1.5 g/dL (3.2-5.2); Albumin/Globulin Ratio 0.5 (1-3); BUN/Creatinine Ratio 18.6 (8-20); EGFR African American 29.3 (>60); EGFR Non-African American 24.2 (>60); Potassium 4.4 mmol/L (3.5-5.0); Total Protein 4.5 g/dL (6.4-8.9)
[2018-11-10] MEDS ORDERED: Heparin VIAL(*) 5000 UNITS/ML VIAL (FIVE THOUSAND) SUBCUT SCH (06:00)
[2018-11-10 06:11] LABS: Calcium 6.3 mg/dL (8.6-10.3)
[2018-11-10] MEDS: Dextrose 50% Syringe 50 ML* 25 GM/50 ML SYRINGE IV PUSH PRN ×2 (07:07→23:45)
[2018-11-10] MEDS ORDERED: Potassium Chloride LIQUID* 20 MEQ PACKET PO SCH (08:30)
[2018-11-10] MEDS ORDERED: Senna TAB PO SCH (09:00)
[2018-11-10] MEDS ORDERED: Polyethylene Glycol 3350* 17 GM PACKET PO SCH (09:00)
[2018-11-10] MEDS: Vancomycin(*) 750 MG in NS 0.9% 250 ML* 250 ML IVPB SCH ×2 (09:30→15:48)
[2018-11-10] MEDS: HYDROmorphone INJ* 0.5 MG/0.5 ML SYRINGE IV SLOW PU PRN ×3 (10:38→19:50)
--- NOTE | 2018-11-10 10:59 | PN ---
Date of Service: 11/10/18 Critical Care Services: Case discussed with Drs Carolyn and Navdeep, and chart reviewed. Unfortunate case of a 52 y/o male with metastatic colon CA, recently in the hospital with biliary obstruction and colangitis requiring percutaneous drainage,who was discharged 4 days ago and now returns with generalized malaise and increased abdominal girth, and was admitted with probable sepsis, increasing bilirubin, ascites, and acute renal failure. Vital Signs: Temp Pulse Resp BP SpO2 FiO2 97.7 F 99 18 84/46 91 Physical Exam: Gen:Patient is lethargic but he responds appropriately to verbal commands, and is oriented x 3. HEENT: Nasogastric tube in place. +scleral icterus Lungs:Clear Cardiac: reg rhythm Abdomen: Distended. Extremities: 4+ edema both legs Neuro: No asterixis. Fluid Balance (Past 24 Hours): 11/10/18 06:59 Intake Total 1075 Output Total 620 Balance 455 Weight 287 lb Intake: IV Fluids 1027 LR 12 NS 1015 IVPB 48 Zosyn 48 Output: Abdominal Drain 550 Wood 70 Labs: 11/09/18 11/09/18 11/09/18 00:23 21:39 21:39 WBC 17.9 H RBC 3.74 L Hgb 9.8 L Hct 31 L MCV 82 MCH 26 L MCHC 32 RDW 21 H Plt Count 297 MPV 7.8 Neut % (Auto) 87.8 Lymph % (Auto) 6.8 [place] % (Auto) 4.9 Eos % (Auto) 0.3 Baso % (Auto) 0.2 Absolute Neuts (auto) 15.7 H Absolute Lymphs (auto) 1.2 Absolute Monos (auto) 0.9 H Absolute Eos (auto) 0.1 Absolute Basos (auto) 0 Absolute Nucleated RBC 0 Nucleated RBC % 0 INR (Anticoag Therapy) VBG pH Cancelled VBG pCO2 Cancelled VBG pO2 Cancelled VBG HCO3 Cancelled VBG O2 Saturation Cancelled VBG Base Excess Cancelled Sodium Potassium Chloride Carbon Dioxide Anion Gap BUN Creatinine Est GFR ( Amer) Est GFR (Non-Af Amer) BUN/Creatinine Ratio Glucose POC Glucose (mg/dL) Lactic Acid 6.9 H* Calcium Total Bilirubin AST ALT Alkaline Phosphatase Ammonia C-Reactive Protein Total Protein Albumin Globulin Albumin/Globulin Ratio 11/09/18 11/10/18 11/10/18 21:39 00:23 00:23 WBC RBC Hgb Hct MCV MCH MCHC RDW Plt Count MPV Neut % (Auto) Lymph % (Auto) [place] % (Auto) Eos % (Auto) Baso % (Auto) Absolute Neuts (auto) Absolute Lymphs (auto) Absolute Monos (auto) Absolute Eos (auto) Absolute Basos (auto) Absolute Nucleated RBC Nucleated RBC % INR (Anticoag Therapy) VBG pH 7.32 L VBG pCO2 29 L VBG pO2 58 H VBG HCO3 17 L VBG O2 Saturation 87.4 H VBG Base Excess -9.8 L Sodium 125 L Potassium 4.7 Chloride 91 L Carbon Dioxide 16 L Anion Gap 18 H BUN 50 H Creatinine 2.99 H Est GFR ( Amer) 27.0 Est GFR (Non-Af Amer) 22.3 BUN/Creatinine Ratio 16.7 Glucose 69 L POC Glucose (mg/dL) Lactic Acid 5.6 H* Calcium 7.8 L Total Bilirubin 9.90 H AST 61 H ALT 27 Alkaline Phosphatase 314 H Ammonia C-Reactive Protein 222.18 H Total Protein 6.0 L Albumin 2.0 L Globulin 4.0 Albumin/Globulin Ratio 0.5 L 11/10/18 11/10/18 11/10/18 00:23 00:23 02:17 INR (Anticoag Therapy) 4.45 H VBG pH VBG pCO2 VBG pO2 VBG HCO3 VBG O2 Saturation VBG Base Excess Sodium Potassium Chloride Carbon Dioxide Anion Gap BUN Creatinine Est GFR ( Amer) Est GFR (Non-Af Amer) BUN/Creatinine Ratio Glucose POC Glucose (mg/dL) 89 Lactic Acid Calcium Total Bilirubin AST ALT Alkaline Phosphatase Ammonia 147 H C-Reactive Protein Total Protein Albumin Globulin Albumin/Globulin Ratio 11/10/18 11/10/18 11/10/18 05:00 05:00 05:00 WBC 12.8 H RBC 3.28 L Hgb 8.8 L Hct 27 L MCV 82 MCH 27 MCHC 33 RDW 21 H Plt Count 201 MPV 7.4 Neut % (Auto) 85.8 Lymph % (Auto) 7.8 [place] % (Auto) 5.7 Eos % (Auto) 0.6 Baso % (Auto) 0.1 Absolute Neuts (auto) 11.0 H Absolute Lymphs (auto) 1.0 Absolute Monos (auto) 0.7 Absolute Eos (auto) 0.1 Absolute Basos (auto) 0 Absolute Nucleated RBC 0 Nucleated RBC % 0 INR (Anticoag Therapy) 4.67 H VBG pH VBG pCO2 VBG pO2 VBG HCO3 VBG O2 Saturation VBG Base Excess Sodium 129 L Potassium 4.4 Chloride 100 L Carbon Dioxide 16 L Anion Gap 13 H BUN 52 H Creatinine 2.79 H Est GFR ( Amer) 29.3 Est GFR (Non-Af Amer) 24.2 BUN/Creatinine Ratio 18.6 Glucose 61 L POC Glucose (mg/dL) Lactic Acid Calcium 6.3 L* Total Bilirubin 8.00 H D AST 51 H ALT 20 Alkaline Phosphatase 259 H Ammonia C-Reactive Protein Total Protein 4.5 L Albumin 1.5 L Globulin 3.0 Albumin/Globulin Ratio 0.5 L 11/10/18 11/10/18 05:00 05:01 POC Glucose (mg/dL) 74 Lactic Acid 4.5 H* Calcium Total Bilirubin AST ALT Alkaline Phosphatase Ammonia C-Reactive Protein Total Protein Albumin Globulin Albumin/Globulin Ratio Studies: Admission studies (e.g., CT scan abdomen and pelvis, portable CXR, ECG) Nutrition: NPO Impression: Major problems include the followin. Biliary obstruction (which cannot be relieved surgically) 2. Acute liver failure (ammonia = 147 and INR > 4) 3. Tense ascites with possible spontaneous bacterial peritonitis 4. Ileus vs SBO 5. Probable hepatorenal syndrome. 6. Lactic acidosis secondary to #3 and/or #4. The combination of these conditions makes the prognosis extremely poor. Patient 's is at the bedside, and I have informed her of the prognosis. Plan: 1. Antibiotics (vancomycin and zosyn) 2. Limit crystalloid fluids, and use pressors if needed to support BP 3. Opioids for comfort 4. Patient is DNR and DNI. Critical Care Time: 80 minutes
[2018-11-10] MEDS ORDERED: Norepinephrine 16MCG/ML IVPRE* 4,000 MCG/250 ML BAG IV ONE (11:51)
[2018-11-10] MEDS: Norepinephrine 16MCG/ML IVPRE* 4,000 MCG/250 ML BAG IV SCH ×2 (12:00→18:03)
[2018-11-10] MEDS: Lactated Ringers 1000 ML Bag* 1,000 ML IV SCH ×2 (12:09→18:12)
[2018-11-10] MEDS ORDERED: Vasopressin* 100 UNITS in D5W 250 ML BAG* 245 ML IVPB SCH (13:30)
[2018-11-10] MEDS: Vasopressin* 100 UNITS in NS 0.9% 250 ML* 245 ML IVPB SCH (14:01)
--- NOTE | 2018-11-10 14:37 | CONS ---
CONSULTATION REPORT: DATE OF CONSULT: 11/10/18 SERVICE: General Surgery. ATTENDING PHYSICIAN: Dr. Charity Henderson. REQUESTING PROVIDER: Dr. Gala Leon, Dr. Samira Sethi REASON FOR CONSULT: Abdominal pain and small bowel obstruction on CT scan. HISTORY OF PRESENT ILLNESS: Mr. Allen is a 52-year-old gentleman with a history of metastatic colon cancer to his liver, who was recently admitted to the oncology service between 11/01/18 to 11/06/18 with sepsis secondary to cholangitis. During his hospitalization, he had a percutaneous transhepatic cholangiogram catheter placed given his biliary obstruction that was noted to be at the hepatic confluence. He has had ongoing obstructive jaundice secondary to these metastases and has had internal stents placed and exchanged by GI at an outside facility. His recent hospital course was complicated by bacteremia and he was discharged home on levofloxacin. Per medical records and the patient's , since he was discharged, the patient has had worsening abdominal pain at the site of the drain as well as increasing abdominal distention, worsening lower extremity edema, and decreased urine output. Per the , he had also had decreased PTC drain output; however, yesterday, his drain started pouring out more biliary fluid and after that his pain completely went away. The also notes that the patient has been somewhat more somnolent and confused. She had been in touch with Dr. Sethi who recommended that he come to the emergency room for evaluation. In the emergency room, the patient had labs done and was noted to have leukocytosis to 17.9 as well as hyponatremia to 125. He was in acute renal failure with a creatinine of almost 3 and elevated lactate. His bilirubin remained elevated and his alkaline phosphatase was also elevated. He was admitted to the hospitalist service, who had him placed in the ICU and ordered a CT abdomen, pelvis performed this morning, which showed evidence of worsening abdominal ascites with some gas around the tract where the transhepatic percutaneous drain had been placed as well as evidence of a small bowel obstruction. However, the CT scan was limited given that there was no p.o. or IV contrast. Given these findings on CT scan, Surgery was consulted. PAST MEDICAL HISTORY: Hypertension; obesity; stage IV colon cancer diagnosed in 2017, with metastasis to the liver, status post chemotherapy with FOLFOX, Avastin, and XELOX and most recently FOLFIRI. PAST SURGICAL HISTORY: Right shoulder surgery, no abdominal surgery, percutaneous transhepatic biliary stent placement, and common bile duct stent placement. MEDICATIONS: Potassium chloride 20 mEq p.o. daily. ALLERGIES: No known drug allergies. FAMILY HISTORY: Mother had colon cancer. SOCIAL HISTORY: The patient lives at home with . He has 2 young children. He is a nonsmoker. REVIEW OF SYSTEMS: Positive for fatigue, lower extremity edema, confusion. PHYSICAL EXAM: Vital Signs: Temperature is 97.7, pulse is 99, respiratory rate is 18, O2 sat is 91% O2 on room air, blood pressure is 84/46. General: He is a fatigued-appearing obese white male, lying in bed. HEENT: Normocephalic, atraumatic. Cardiovascular: Regular rate and rhythm. Respiratory: Clear to auscultation bilaterally. Abdomen is distended, nontender. Extremities: Bilateral pitting edema. DIAGNOSTIC STUDIES/LAB DATA: Laboratory values from 11/10/18, sodium is 129, potassium is 4.4, chloride is 100, CO2 is 16, anion gap is 13, BUN is 52, creatinine is 2.79, glucose is 61, lactic acid is 4.5, calcium 6.3. Total bilirubin 8, AST is 51, ALT is 20, alkaline phosphatase of 259. C-reactive protein is 147. INR is 4.7. White blood cell count is 12.8 from 17.9, hemoglobin is 8.8, hematocrit is 27, platelets are 201. Imaging: Chest x-ray shows cardiomegaly with bibasilar atelectasis, no definite pneumonia. CT abdomen, pelvis shows interval increase and now moderate amount of ascites. There is extension of fluid laterally through the right chest wall between T7 and T8 ribs along the course of the percutaneous catheter, the fluid here extends for approximately 12 cm and tiny bits of gas and fluid as well as tiny bit of residual intraperitoneal gas and fluid anteriorly; this may or may not be infected. Pronounced distention of the fluid filled stomach, moderate distention of multiple small bowel loops, greatest diameter 4.6 cm, normal caliber, distal small bowel loops, probably obstruction, associated infiltration of the mesentery and some limited wall thickening of the involved bowel, pneumatosis; however, ischemic bowel is not excluded, bibasilar atelectasis, consolidation. The hepatic presumed metastatic lesions are difficult to visualize on nonenhanced studies, new anasarca, increased wall thickening of the left side of the colon. ASSESSMENT AND PLAN: Mr. Allen is a 52-year-old gentleman with a history of metastatic colon cancer to the liver complicated by obstructive jaundice, who is status post multiple internal stent placements and a most recent placement of a percutaneous transhepatic drain for cholangitis, who was discharged recently and returned to the emergency room with worsening abdominal pain correlating with decreased biliary output, increasing lethargy, decreased urine output, increasing abdominal distention, and increased bilateral lower extremity edema. 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 I reviewed the imaging with Dr. Browning this morning. The stranding, edema and nodularity throughout his mesentery could reflect carcinomatosis; however, it is difficult to fully evaluate on non contrast imaging. There may be transition point somewhere in his mid small bowel that could have potentially a mass. His overall presentation with leukocytosis, encephalopathy, worsening liver function (INR 4.5), and new-onset renal failure could also be reflective of progression of his disease or acute on chronic liver decompensation with hepatorenal syndrome, precipitated by another episode of cholangitis after discharge. He currently has an NG tube placed for his small bowel obstruction. He is on broad-spectrum antibiotics and his white count has decreased slightly today. I had discussed with the patient and his that his imaging findings of the small bowel obstruction is most likely from a malignant bowel obstruction. Given his multisystem organ failure, coagulopathy and overall progressive/terminal disease course, he is not a surgical candidate for any sort of exploration. It is unlikely that he does have any ischemic bowel given his clinical exam. His elevated lactate is possibly from his liver failure and inability to clear lactate. I told the patient and his that he would be unlikely to survive any surgical intervention. The patient and both understand this. I recommend a Palliative Care consult and will defer management and goals of care discussion to the oncology team. I discussed these recommendations with Dr. Montiel and Dr. Sethi. [id number]/[facility] #: [id number] [facility]
[2018-11-10] MEDS ORDERED: Dextrose 50% Syringe 50 ML* 25 GM/50 ML SYRINGE ONE (23:36)
[2018-11-11] MEDS: D5NS 0.9% 1000 ML BAG* 1,000 ML IV SCH ×3 (00:10→14:10)
[2018-11-11] MEDS: Vancomycin(*) 750 MG in NS 0.9% 250 ML* 250 ML IVPB SCH ×3 (00:10→16:49)
[2018-11-11] MEDS: HYDROmorphone INJ* 0.5 MG/0.5 ML SYRINGE IV SLOW PU PRN ×4 (00:46→20:33)
[2018-11-11] MEDS: Norepinephrine 16MCG/ML IVPRE* 4,000 MCG/250 ML BAG IV SCH ×2 (01:17→09:31)
[2018-11-11] MEDS: Piperacillin/Tazobac ADVAN(*) 3.375 GM in NS 0.9% 100 ML* 100 ML IVPB SCH ×3 (03:30→19:58)
[2018-11-11 05:11] LABS: Hematocrit 28 % (36-46); Hemoglobin 9.2 g/dL (14.0-18.0); Mean Corpuscular HGB Conc 32 g/dL (31-36); Mean Corpuscular Hemoglobin 26 pg (27-31); Mean Corpuscular Volume 81 fL (80-94); Mean Platelet Volume 6.8 fL (7.4-10.4); Platelet Count 253 10^3/uL (150-450); Red Blood Count 3.51 10^6 /uL (4.18-5.48); Red Cell Distribution Width 21 % (10.5-15)
[2018-11-11 05:31] LABS: BUN/Creatinine Ratio 29.8 (8-20); Calcium 6.8 mg/dL (8.6-10.3); EGFR Non-African American 30.6 (>60); Potassium 4.4 mmol/L (3.5-5.0)
[2018-11-11 08:24] LABS: Total Bilirubin 8.4 mg/dL (0.2-1.0)
[2018-11-11] MEDS ORDERED: Vancomycin Trough Check NOTE FOLLOW UP ONE (08:30)
--- NOTE | 2018-11-11 11:02 | PN ---
Progress Note - Progress Note Date of Service: 11/11/18 SOAP: Subjective: []No pain today, worried about dying. He is conversational. , sister and cousin in room. Albuterol/Ipratropium (Duoneb (Albuterol 2.5 Mg/Ipratropium 0.5 Mg)) 1 neb INH RT.[id number] AWAKE PRN PRN Reason: sob/wheexing Dextrose (D50w Syringe 50 Ml*) 25 gm IV PUSH ONCE PRN PRN Reason: FS < 60 Last Admin: 11/10/18 23:45 Dose: 25 gm Hydromorphone HCl (Dilaudid Inj*) 0.5 mg IV SLOW PU Q4H PRN PRN Reason: PAIN Last Admin: 11/11/18 04:56 Dose: 0.5 mg Piperacillin Sod/Tazobactam (Sod 3.375 gm/ Sodium Chloride) 100 mls @ 25 mls/ hr IVPB Q8H [facility] Last Admin: 11/11/18 03:30 Dose: 25 mls/hr Vancomycin HCl 750 mg/ Sodium (Chloride) 250 mls @ 166.667 mls/hr IVPB Q8H [facility] Last Admin: 11/11/18 09:39 Dose: 166.667 mls/hr Norepinephrine Bitartrate (Levophed 16 Mcg/Ml Premix Bag*) 4,000 mcg in 250 mls @ 18.75 mls/hr IV .PER PROTOCOL [facility]; Protocol Last Admin: 11/11/18 09:31 Dose: 30 mls/hr Vasopressin 100 units/ Sodium (Chloride) 250 mls @ 6 mls/hr IVPB Q24H [facility]; Protocol Last Admin: 11/10/18 14:01 Dose: 6 mls/hr Dextrose/Sodium Chloride (D5ns 0.9% 1000 Ml Bag*) 1,000 mls @ 150 mls/hr IV PER RATE [facility] Last Admin: 11/11/18 06:32 Dose: 150 mls/hr Oxycodone HCl (Roxycodone Tab*) 5 mg PO Q4H PRN PRN Reason: PAIN Pharmacy Consult (Vancomycin Per Pharmacy*) 1 note FOLLOW UP .VANC PER PHARMACY [facility] Pharmacy Consult (Zosyn Per Pharmacy*) 1 note FOLLOW UP .ZOSYN PER PHARMACY [facility] Pharmacy Profile Note (Vancomycin Trough Check) 1 note FOLLOW UP 0800 ONE Stop: 11/12/18 08:01 Objective: []duel pressers Vital Signs Temp Pulse Resp BP Pulse Ox 97.9 F 100 19 113/62 95 11/11/18 10:00 11/11/18 10:00 11/11/18 10:00 11/11/18 10:00 11/11/18 10:00 HEENT jaundice CTA RRR S1S2 no abd tenderness and has some BS liver flap diffuse edema conversational and coherent. Labs reviewed. Assessment: []61 year old with progressive colon cancer metastatic to liver, progressive with increased liver failure. Had been primarily issue of drainage but now compromised synthetic function and HRS. He is on blood pressure support. Discussed that there may be a component of infection but mostly this is progressive liver failure and there is nothing with that will help. He wants to live long enough to see his father arrive tonight and his daughter after school. Not in pain at this time. Plan: []1. Will continue current therapy through today but not escalate 2. DNI/DNR signed with Dr. Montiel. 3. Will consider comfort measures if alive tomorrow. time 35 min with patent, family, chart.
[2018-11-11] MEDS: Vasopressin* 100 UNITS in NS 0.9% 250 ML* 245 ML IVPB SCH (14:10)
--- NOTE | 2018-11-11 18:05 | PN ---
Date of Service: 11/11/18 Critical Care Services: Clinical condition is basically unchanged, with two vasopressors needed to maintain blood pressure. Patient is receiving opioids for pain control. He is currently DNR and DNI. Oncology (Dr. Acosta) spoke with family this AM about the poor prognosis. Vital Signs: Temp Pulse Resp BP SpO2 FiO2 98.1 F 99 17 109/56 92 Physical Exam: Gen:Somnolent but arousable and is oriented x 3. HEENT: oral mucosa dry Lungs:Bibasilar crackles Cardiac: Reg rhythm Abdomen:Markedly distended Extremities: 4+ edema of lower etremities Neuro: No asterixis Fluid Balance (Past 24 Hours): 11/11/18 06:59 Intake Total 5263 Output Total 3020 Balance 2243 Weight 292 lb Intake: IV Fluids 3804 D5NS 1111 LR 2265 NS 58 abx 370 IVPB 790 Zosyn 444 abx 346 Medicated IV 669 Levophed 572 Vasopressin 97 Oral Output: NG Tube Drainage Amount 1650 Abdominal Drain 80 Wood 1290 Labs: Laboratory Results - last 24 hr 11/10/18 11/10/18 11/10/18 12:21 15:56 20:05 WBC RBC Hgb Hct MCV MCH MCHC RDW Plt Count MPV Sodium Potassium Chloride Carbon Dioxide Anion Gap BUN Creatinine Est GFR ( Amer) Est GFR (Non-Af Amer) BUN/Creatinine Ratio Glucose POC Glucose (mg/dL) 79 82 63 L Glucose Meter Confirm Lactic Acid Calcium Total Bilirubin AST ALT Alkaline Phosphatase Vancomycin Trough 11/10/18 11/10/18 11/11/18 23:35 23:43 03:38 WBC RBC Hgb Hct MCV MCH MCHC RDW Plt Count MPV Sodium Potassium Chloride Carbon Dioxide Anion Gap BUN Creatinine Est GFR ( Amer) Est GFR (Non-Af Amer) BUN/Creatinine Ratio Glucose POC Glucose (mg/dL) 32 L* 145 H Glucose Meter Confirm 199 H Lactic Acid Calcium Total Bilirubin AST ALT Alkaline Phosphatase Vancomycin Trough 11/11/18 11/11/18 11/11/18 05:00 05:00 05:00 WBC 17.0 Hgb 9.2 L Hct 28 L MCV 81 Plt Count 253 Sodium 131 L Potassium 4.4 Chloride 102 Carbon Dioxide 19 L Anion Gap 10 BUN 68 Creatinine 2.28 Glucose 130 H POC Glucose (mg/dL) Glucose Meter Confirm Lactic Acid 3.0 H* Calcium 6.8 L Total Bilirubin 8.40 H AST 92 H ALT 28 Alkaline Phosphatase 368 H Vancomycin Trough 11/11/18 11/11/18 08:22 08:22 WBC RBC Hgb Hct MCV MCH MCHC RDW Plt Count MPV Sodium Potassium Chloride Carbon Dioxide Anion Gap BUN Creatinine Est GFR ( Amer) Est GFR (Non-Af Amer) BUN/Creatinine Ratio Glucose POC Glucose (mg/dL) 157 H Glucose Meter Confirm Lactic Acid Calcium Total Bilirubin AST ALT Alkaline Phosphatase Vancomycin Trough 19.4 Studies: None Nutrition: NPO Impression: End-stage and irreversible biliary obstruction, liver failure and renal failure from metastatic colon CA. Plan: Maitain comfort with opioids, and provide hemodynamic support for now. I have spoken to family about "comfort measures only" care, and they are waiting for patient's father to make the decision.
[2018-11-12] MEDS: HYDROmorphone INJ* 0.5 MG/0.5 ML SYRINGE IV SLOW PU PRN ×2 (00:10→04:26)
[2018-11-12] MEDS: Vancomycin(*) 750 MG in NS 0.9% 250 ML* 250 ML IVPB SCH (00:11)
[2018-11-12] MEDS: D5NS 0.9% 1000 ML BAG* 1,000 ML IV SCH (00:31)
[2018-11-12] MEDS ORDERED: Vasopressin* 100 UNITS in NS 0.9% 250 ML* 245 ML IVPB SCH (02:00)
[2018-11-12] MEDS: Piperacillin/Tazobac ADVAN(*) 3.375 GM in NS 0.9% 100 ML* 100 ML IVPB SCH (02:27)
[2018-11-12] MEDS ORDERED: Lorazepam PYXIS KEY PRN (02:36)
[2018-11-12] MEDS ORDERED: Lorazepam PYXIS KEY ONE ×3 (02:39→08:40)
[2018-11-12] MEDS: LORazepam INJ* 2 MG/ML 1 ML VIAL IV PUSH PRN ×3 (02:42→07:32)
[2018-11-12 04:11] LABS: Urine Appearance Turbid; Urine Bacteria Absent (Absent); Urine Bilirubin 2+ (Negative); Urine Blood 1+ (Negative); Urine Color Amber; Urine Glucose Negative (Negative); Urine Ketones Negative (Negative); Urine Nitrite Negative (Negative); Urine Protein Negative (Negative); Urine Red Blood Cell Absent (Absent); Urine Specific Gravity 1.016 (1.010-1.030); Urine Squamous Epithelial Cell Present (Absent); Urine Urobilinogen Negative (Negative); Urine White Blood Cell Absent (Absent)
[2018-11-12 06:13] LABS: EGFR African American 83.1 (>60); EGFR Non-African American 68.7 (>60)
[2018-11-12] MEDS ORDERED: HYDROmorphone INJ1* 1 MG/ML SYRINGE ONE (07:47)
[2018-11-12] MEDS ORDERED: HYDROmorphone INJ1* 1 MG/ML SYRINGE IV ONE ×2 (08:00→09:00)
[2018-11-12] MEDS ORDERED: Vancomycin Trough Check NOTE FOLLOW UP ONE (08:00)
[2018-11-12] MEDS: LORazepam VIAL (for drip)* 100 MG in D5W 50 ML BAG* 50 ML IVPB SCH ×2 (08:58→11:00)
[2018-11-12] MEDS ORDERED: LORazepam INJ* 2 MG/ML 1 ML VIAL IV PUSH ONE (09:00)
[2018-11-12] MEDS ORDERED: Morphine 10 MG/ML VIAL (1 ml) IV ONE (09:00)
[2018-11-12] MEDS ORDERED: fentaNYL* 50 MCG/ML 2 ML VIAL (100 MCG VIAL) IV ONE (09:00)
[2018-11-12] MEDS ORDERED: fentaNYL INFUSION 50 MCG/ML* 2,500 MCG/50 ML BAG IV SCH (09:00)
[2018-11-12 09:21] VITALS: BP 88/54
[2018-11-12] MEDS: fentaNYL INFUSION 50 MCG/ML* 2,500 MCG/50 ML BAG IV SCH ×2 (09:33→16:40)
--- NOTE | 2018-11-12 09:39 | PN ---
Progress Note - Progress Note Date of Service: 11/12/18 SOAP: Subjective: [Alton became very agitated overnight. Family has arrived. Pressor support was withdrawn this morning. He is currently sedated.] Objective: [ Laboratory Results - last 24 hr 11/11/18 11/11/18 11/12/18 08:22 20:04 03:45 BUN Creatinine Est GFR ( Amer) Est GFR (Non-Af Amer) POC Glucose (mg/dL) 157 H Urine Color Rekha Urine Appearance Turbid Urine pH 5.0 Ur Specific [place] 1.016 Urine Protein Negative Urine Ketones Negative Urine Blood 1+ A Urine Nitrate Negative Urine Bilirubin 2+ A Urine Urobilinogen Negative Ur Leukocyte Esterase Negative Urine WBC (Auto) Absent Urine RBC (Auto) Absent Ur Squamous Epith Cells Present A Amorphous Crystals Present A Urine Bacteria Absent Urine Glucose Negative Vancomycin Trough 19.4 11/12/18 05:33 BUN 64 H Creatinine 1.13 Est GFR ( Amer) 83.1 Est GFR (Non-Af Amer) 68.7 POC Glucose (mg/dL) Urine Color Urine Appearance Urine pH Ur Specific [place] Urine Protein Urine Ketones Urine Blood Urine Nitrate Urine Bilirubin Urine Urobilinogen Ur Leukocyte Esterase Urine WBC (Auto) Urine RBC (Auto) Ur Squamous Epith Cells Amorphous Crystals Urine Bacteria Urine Glucose Vancomycin Trough Lorazepam 100 mg/ Dextrose 100 mls @ 2 mls/hr IVPB Q24H [facility]; Protocol Last Admin: 11/12/18 08:58 Dose: 2 mls/hr Fentanyl Citrate (Fentanyl Infusion Bag 50 Mcg/Ml 50 Ml) 2,500 mcg in 50 mls @ 2 mls/hr IV Q24H [facility]; Protocol Last Admin: 11/12/18 08:54 Dose: 2 mls/hr Miscellaneous (Ativan Pyxis Michelle) 1 ea N/A .PYXIS MICHELLE PRN PRN Reason: PER PROTOCOL Vital Signs: Temp Pulse Resp BP Pulse Ox 98.6 F 105 14 88/54 94 11/12/18 09:00 11/12/18 09:00 11/12/18 09:00 11/12/18 09:00 11/12/18 09:00 Exam: Gen: Sedated, comfortable, accompanied by family Resp: breathing is regular and unencumbered Skin: jaundice] Assessment: [52 yo male with metastatic colon cancer admitted with fulminant liver failure and SBO. Now comfort measures only.] Plan: [1. Comfort care - fentanyl and ativan drip, titrate to symptoms - withdraw all monitoring devices Dispo: inpatient comfort measures, patient is not appropriate for discharge or transfer. Anticipate within 24 hours]
--- NOTE | 2018-11-12 10:30 | PN ---
Date of Service: 11/12/18 Critical Care Services: Patient is currently receiving IV sedation with lorazepam and fentanyl as part of the "comfort measures only" care, which was requested by the family. All caregivers are in agreement with this measure. Vital Signs: Temp Pulse Resp BP SpO2 FiO2 98.6 F 105 15 88/54 94 Physical Exam: Unresponsive to deep pain Fluid Balance (Past 24 Hours): 11/11/18 11/12/18 06:59 06:59 Intake Total 5263 3924 Output Total 3020 2710 Balance 2243 1214 Weight 292 lb 295 lb Intake: IV Fluids 3804 2843 D5NS 1111 1961 LR 2265 NS 58 426 Zosyn 417 abx 370 39 IVPB 790 464 D5NS 38 Zosyn 444 178 abx 346 248 Medicated IV 669 617 Levophed 572 473 Vasopressin 97 144 Oral 0 Output: NG Tube Drainage Amount 1650 Abdominal Drain 80 200 Wood 1290 2510 Labs: Laboratory Results - last 24 hr 11/11/18 11/12/18 11/12/18 20:04 03:45 05:33 BUN 64 H Creatinine 1.13 Est GFR ( Amer) 83.1 Est GFR (Non-Af Amer) 68.7 POC Glucose (mg/dL) 157 H Urine Color Rekha Urine Appearance Turbid Urine pH 5.0 Ur Specific [place] 1.016 Urine Protein Negative Urine Ketones Negative Urine Blood 1+ A Urine Nitrate Negative Urine Bilirubin 2+ A Urine Urobilinogen Negative Ur Leukocyte Esterase Negative Urine WBC (Auto) Absent Urine RBC (Auto) Absent Ur Squamous Epith Cells Present A Amorphous Crystals Present A Urine Bacteria Absent Urine Glucose Negative Impression: Patient has multiple life-threatening and irreversible conditions related to metastatic colon CA. He appears comfortable on the IV analgesia/sedation regimen (fentanyl and lorazepam). Plan: Continue to provide comfort care for as long as necessary. All meds other than fentanyl and lorazepam have been discontinued. Family is present at the bedside.
[2018-11-12] MEDS ORDERED: Scopolamine 1.5 mg* PATCH TRANSDERM SCH (23:45)
--- NOTE | 2018-11-13 02:18 | PN ---
Progress Note - Progress Note Date of Service: 11/13/18 Note: Paged - Patient at 0142 AM. No respirations or heart sounds. Family at the bedside. Several question for Angelica DOWNS regarding what happens after this. Patient was appeared comfortable when he passed. Certificate completed electronically
--- NOTE | 2018-11-13 05:06 | DS ---
CC: Mina Acosta MD * SUMMARY: DATE OF ADMISSION: 11/09/18 DATE OF EXPIRATION: 11/13/18 at 0142 a.m. PRIMARY CARE PHYSICIAN: Mina Acosta MD. CAUSE OF /PRINCIPAL DIAGNOSIS: Metastatic colon cancer, complicated by fulminant liver failure, acute renal failure, and small-bowel obstruction. HOSPITAL COURSE: Please refer to complete medical records for a thorough history of the patient's hospitalization. In summary, the patient was admitted on 11/09/18 for increase in abdominal pain , discomfort, and lethargy. He was recently admitted prior to this for sepsis secondary to cholangitis and bacteremia with a percutaneous biliary drain placed as well as biliary stents. The patient declined after discharge with increased weight gain and decreased urine output and nausea and lethargy. The patient was admitted to the ICU for white count, concern for sepsis, renal failure, and liver failure. He was placed on vasopressors and seen by Surgery, who stated he was not a candidate for small-bowel obstruction surgery as this was likely progression of his metastatic colon cancer. Oncology was following the patient as well in addition to the hire car driver as the primary care attending. Oncology felt this was progressive colon cancer with multiorgan failure and the discussion was to make him DNR/DNI and comfort measures once his family members arrive. The patient wanted to remain alive until his father arrived. On 11/12/18, the patient was placed on a fentanyl and Ativan drip and comfort measures were placed and the patient passed peacefully at 1:42 a.m. surrounded by his family. Electronic certificate completed as well. [id number]/[facility] #: [id number] [facility]
[2018-11-15] MEDS ORDERED: Scopolamine PATCH Remove* 1 NOTE MISC PATCH OFF SCH (23:45)
== END 2018-11-13 01:42 | disposition expired | DRG 441 ==
LOC: ED 20:53 → ICU 23:02
PROVIDERS: ADMIT Internal Medicine; ATTEND Internal Medicine Critical Care Medicine
PROC: 3E033XZ Introduction of Vasopressor into Peripheral Vein, Percutaneous Approach (ICD-10-PCS; principal; 2018-11-11)
DX: K72.00 Acute and subacute hepatic failure without coma (principal); K83.1 Obstruction of bile duct; K76.7 Hepatorenal syndrome; C78.7 Secondary malignant neoplasm of liver and intrahepatic bile duct; C18.9 Malignant neoplasm of colon, unspecified; N17.9 Acute kidney failure, unspecified; K56.609 Unspecified intestinal obstruction, unspecified as to partial versus complete obstruction; D68.9 Coagulation defect, unspecified; E87.2 Acidosis; E87.1 Hypo-osmolality and hyponatremia; R18.8 Other ascites; D64.9 Anemia, unspecified; E16.2 Hypoglycemia, unspecified; Z66 Do not resuscitate; I10 Essential (primary) hypertension; E66.9 Obesity, unspecified; Z68.38 Body mass index [BMI] 38.0-38.9, adult; Z83.3 Family history of diabetes mellitus; Z80.0 Family history of malignant neoplasm of digestive organs
CPT/HCPCS: 36415; 71045; 74176; 80048; 80053; 80202; 81003; 81015; 82140; 82247; 82565; 82803; 82947; 83605; 84075; 84450; 84460; 84520; 85025; 85027; 85610; 86140; 87040; 87106; 87205; 87641; 93005; 99232; 99233; 99285; A9270-GY; J1170; J2060; J2543; J3010; J3370